=== PATIENT | female | born 1935 | race Caucasian/White ===

== ENCOUNTER 2019-10-07 01:24 | Outpatient (CLI) | payer OTHER, SELFPAY ==
[2019-10-07 18:35] LABS: SARS-CoV-2 RNA PCR Negative
== END 2019-10-07 01:25 | disposition home or self-care (01) ==
LOC: ANHCOVIDDT 01:25
PROVIDERS: PCP Family Medicine; Visit Provider Internal Medicine Gastroenterology
DX: Z01.812 Encounter for preprocedural laboratory examination (principal); Z11.59 Encounter for screening for other viral diseases
CPT/HCPCS: 87635; C9803; U0003

== ENCOUNTER 2019-10-09 01:38 | Day surgery (SDC) | payer OTHER, SELFPAY ==
[2019-10-01 14:38] VITALS: BMI 32.3
--- NOTE | ~2019-10-09 | XR_ITS ---
EXAMINATION: XR_ENEMABAC_CR DATE: 10/09/2019 09:45 INDICATION: Limited colonoscopy. Positive cologuard test. TECHNIQUE: A coach wirer radiograph was obtained. A catheter was inserted into the patient's rectum. Contra st was infused by gravity. Gas was infused by hand pump. Fluoroscopic spot images and conventional ra diographs were obtained. Fluoroscopy exposure time was 2.1 minutes. A total of 13 fluoroscopic images and 13 overhead radiographs were obtained. COMPARISON: None. FINDINGS: Moderate diverticulosis, the majority along the sigmoid colon with a few additional diverticula along the descending colon, couple along the proximal transverse and one at the proximal ascending colon. No strictures, intraluminal polyps/masses or mucosal irregularities identified. Assessment of the sig moid colon is somewhat limited by significant tortuosity of the colon at this location. There is some reflux of contrast into the distal ileum which also appears unremarkable. IMPRESSION: 1. Moderate diverticulosis. Reviewed, dictated and finalized at location A. IMPRESSION: 1. Moderate diverticulosis.
[2019-10-09 06:23] VITALS: BMI 31.6
[2019-10-09] MEDS: LACTATED RINGERS 1,000 ML 150 ML IV CONT (07:09)
--- NOTE | 2019-10-09 07:17 | WPDANESEPPF ---
Anes - Initial Pre Proc Eval Procedure: Operation Date: 10/09/19 07:30 Proposed Procedures p Colonoscopy - Cooper Campbell MD Date/Time: 10/09/19 07:17 Surgeon: Cooper Campbell MD Pre Op Diagnosis: Abnormal Stool, Hx of Colon Polyps Patient Data Age: 84 Gender: F Height: 5 ft 5 in Weight: 86.3 kg Allergies Allergy/AdvReac Type Severity Reaction Status Date / Time levofloxacin Allergy Mild Nausea and Verified 10/09/19 06:20 Vomiting metronidazole Allergy Mild Nausea and Verified 10/09/19 06:20 Vomiting adhesive tape Allergy Unknown BLISTERS Verified 10/09/19 06:20 codeine Allergy Unknown Vomiting Verified 10/09/19 06:20 Iodinated Contrast Media Allergy Unknown Unknown Verified 10/09/19 06:20 Contrast Media Allergy Unknown unknown Uncoded 10/09/19 06:20 Home Medications Medication Instructions Recorded Confirmed Type apixaban 5 mg tablet 5 mg PO BID 01/02/19 10/01/19 History hydrochlorothiazide 12.5 mg tablet 12.5 mg PO DAILY #90 tablet 08/08/19 10/01/19 Rx metoprolol tartrate 50 mg tablet 50 mg PO DAILY 08/08/19 10/01/19 History losartan 50 mg tablet 50 mg PO DAILY #90 tablet 10/07/19 Rx Patient hx anesthesia problems: none Family hx anesthesia problems: none PMFSH Past Medical History Medical History Allergic rhinitis, unspecified Atherosclerosis of aorta Benign paroxysmal vertigo, bilateral Bronchitis Chronic sinusitis of both maxillary sinuses Closed displaced fracture of head of right radius with routine healing Closed nondisplaced fracture of lateral malleolus of right fibula Current use of [facility] anticoagulation Diverticulosis large intestine w/o perforation or abscess w/bleeding Essential (primary) hypertension PAF (paroxysmal atrial fibrillation) Pneumonia and influenza Postmenopausal Spinal stenosis of lumbar region with neurogenic claudication Family History Family History Mother Patient's mother is Family history of malignant neoplasm Sibling Asthma Other Family history of arthritis Social History Social History Smoking status: Former smoker Second hand tobacco smoke exposure: No Smoking end date: 02/26/83 Alcohol intake: never Substance use: never Substance use type: does not use Gender identity (if verbalized by the patient): Female Anes - Eval Final PreProcedure Day of Procedure 10/09/19 07:17 Patient weight: obese Heart: irregular rhythm Lungs: clear to auscultation Airway: Mallampati scale class II Neurological: alert and oriented Last oral intake: >/= 8 hours ASA classification: III Emergent: no Anesthetic plan: proceed Anesthesia type and monitoring: general GIVS and standard monitoring Informed Consent: The patient's anesthetic plan and its attendant risks and benefits were discussed with the patient/family/POA. Questions were solicited and answers provided to the satisfaction of the patient/family/POA.
--- NOTE | 2019-10-09 08:16 | WPDGICN ---
Assessment and Plan Assessment and plan (1) Positive colorectal cancer screening using Cologuard test: Code(s): R19.5 - Other fecal abnormalities Status: Acute Assessment and Plan: Because of positive: GERD test as well as family history of colon cancer in her own personal history of colon polyps colonoscopy will be attempted. Anticoagulation will be held for this procedure. These reports follow separately. (2) History of colon polyps: Code(s): Z86.010 - Personal history of colonic polyps Status: Acute (3) Family history of colon cancer in mother: Code(s): Z80.0 - Family history of malignant neoplasm of digestive organs Status: Acute (4) PAF (paroxysmal atrial fibrillation): Code(s): I48.0 - Paroxysmal atrial fibrillation Status: Acute (5) Current use of correction anticoagulation: Code(s): Z79.01 - termite control representative (current) use of anticoagulants Status: Acute (6) Diverticulosis large intestine w/o perforation or abscess w/bleeding: Code(s): K57.31 - Diverticulosis of large intestine without perforation or abscess with bleeding Status: Acute GI Consult Note Consult date/time: 10/09/19 08:16 HPI: Pearl Goodman is a 84 year old female Seen in evaluation at the request of Dr. francesca lo. Patient recently had colon guard test that was positive. For this reason she is referred for colonoscopy. Her past medical history is significant for colon polyps. Family history is significant her mother had colon cancer. Patient has a history of atrial fibrillation for which she is on Eliquis atrial fibrillation will be held for colonoscopy. Patient states her current weight appetite bowel is normal. She denies abdominal pain she denies bleeding. 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 Diverticulosis large intestine w/o perforation or abscess w/bleeding Essential (primary) hypertension PAF (paroxysmal atrial fibrillation) Pneumonia and influenza Postmenopausal Spinal stenosis of lumbar region with neurogenic claudication Family History Family History Mother Patient's mother is Family history of malignant neoplasm Sibling Asthma Other Family history of arthritis Social History Social History Smoking status: Former smoker Second hand tobacco smoke exposure: No Smoking end date: 02/26/83 Alcohol intake: never Substance use: never Substance use type: does not use Gender identity (if verbalized by the patient): Female Meds Home Medications and Allergies Home Medications Medication Instructions Recorded Confirmed Type apixaban 5 mg tablet 5 mg PO BID 01/02/19 10/01/19 History hydrochlorothiazide 12.5 mg tablet 12.5 mg PO DAILY #90 tablet 08/08/19 10/01/19 Rx metoprolol tartrate 50 mg tablet 50 mg PO DAILY 08/08/19 10/01/19 History losartan 50 mg tablet 50 mg PO DAILY #90 tablet 10/07/19 Rx Allergies Allergy/AdvReac Type Severity Reaction Status Date / Time levofloxacin Allergy Mild Nausea and Verified 10/09/19 06:20 Vomiting metronidazole Allergy Mild Nausea and Verified 10/09/19 06:20 Vomiting adhesive tape Allergy Unknown BLISTERS Verified 10/09/19 06:20 codeine Allergy Unknown Vomiting Verified 10/09/19 06:20 Iodinated Contrast Media Allergy Unknown Unknown Verified 10/09/19 06:20 Contrast Media Allergy Unknown un
[2019-10-09 08:19] VITALS: BP 109/63; PULSE 80; RESP 22; O2SAT 99
[2019-10-09 08:29] VITALS: BP 110/59; PULSE 77; RESP 21; O2SAT 99
[2019-10-09 08:34] VITALS: BP 114/64; PULSE 78; RESP 21; O2SAT 99
--- NOTE | 2019-10-09 09:09 | SUR.PHASEII ---
INCOMPLETE COLONOSCOPY. DR. MORE WOULD LIKE PATIENT TO HAVE ACBE TODAY. CALLED TO SCHEDULE PROCEDURE WITH XRAY, TOLD TO CALL THEN BRING PATIENT DOWN WHEN COMPLETE IN GI. 856 -CALLED XRAY AND TOLD TO GO TO XRAY ROOM 2. 0859 -HANDED OFF PATIENT TO XRAY AND GAVE FAY'S PHONE NUMBER. [phone] -UPDATED PATIENTS , FAY, TO LET HIM KNOW THAT PATIENT IS NOW IN XRAY. FAY LET ME KNOW THAT HE IS CURRENTLY WAITING FOR HER ON THE FRONT SIDE OF THE HOSPITAL, LOOKING AT THE [facility] DOORS. GAVE FAY 'S PHONE NUMBER JUST IN CASE HE NEEDS SOMETHING.
== END 2019-10-09 08:43 | disposition home or self-care (01) ==
PROVIDERS: PCP Family Medicine; Visit Provider Internal Medicine Gastroenterology
PROC: 0DJD8ZZ Inspection of Lower Intestinal Tract, Via Natural or Artificial Opening Endoscopic (ICD-10-PCS; CPT 45378; principal; 2019-10-09 07:30)
DX: R19.5 Other fecal abnormalities (principal); K57.30 Diverticulosis of large intestine without perforation or abscess without bleeding; Z80.0 Family history of malignant neoplasm of digestive organs; Z86.010 Personal history of colon polyps; Z87.19 Personal history of other diseases of the digestive system; I48.0 Paroxysmal atrial fibrillation; Z79.01 Long term (current) use of anticoagulants; Z87.891 Personal history of nicotine dependence
CPT/HCPCS: 45378; 74280; 87635; C9803; J2704; J7120; U0003

== ENCOUNTER 2020-03-18 05:39 | Emergency (ER) | payer OTHER, SELFPAY ==
[2020-03-18] VITALS (7 sets, daily range): BP systolic 107–172; BP diastolic 66–95; PULSE 83–95; RESP 20–28; TEMP 36.5; O2SAT 96–99
--- NOTE | ~2020-03-18 | XR_ITS ---
EXAMINATION: XR chest 1V portable EXAM DATE: 03/18/2020 06:21 INDICATION: Shortness of breath. TECHNIQUE: Portable AP frontal chest x-ray was obtained. Comparison is made to prior examination from 05/29/2018. FINDINGS: The lungs are clear. There are no pleural effusions. Cardiac silhouette is prominent but magnified on this AP technique. There is no pneumothorax suspected. The bones and soft tissues are unremarkable. IMPRESSION: No acute cardiopulmonary findings. Reviewed, dictated and finalized at location A. POUND ATTENDANT
--- NOTE | 2020-03-18 05:49 | ECG_ITS ---
Measurements Intervals [place] Rate: 95 P: TX: 0 QRS: 25 QRSD: 76 T: 10 QT: 336 QTc: 423 Interpretive Statements ATRIAL FIBRILLATION VENTRICULAR PREMATURE COMPLEX CANNOT RULE OUT SEPTAL INFARCT, AGE INDETERMINATE BORDERLINE ST ABNORMALITY- ANTERIOR LEADS BASELINE ARTIFACT- I, II, III, AVR, AVL, AVF, V4-V6 ABNORMAL ECG Electronically Signed On 03-18-2020 7:17:29 BRAND ENGINEER by Ricardo Barreto D.O.
--- NOTE | 2020-03-18 05:51 | ED.ARRPALP ---
HPI - Arrhythmia/Palpitations General Chief Complaint: Arrhythmia/Palpitations Stated Complaint: sob and afib Time Seen by Provider: 03/18/20 05:40 Source: patient and EMS Mode of arrival: EMS Limitations: no limitations History of Present Illness HPI narrative: And an 84-year-old woman comes in tonight via EMS for complaints of palpitations, and anxiety. Patient notes that she has not been able to sleep all night. She states that her heart kicked into A. fib around noon yesterday. She states that this does happen. She notes that she takes metoprolol for this and has not missed any doses. Patient admits to some shortness of breath however denies any chest pain. Patient does note some anxiety. She denies any medication changes or anything inciting this. Related Data Home Medications Medication Instructions Recorded Confirmed apixaban 5 mg tablet 5 mg PO BID 01/02/19 10/01/19 metoprolol tartrate 50 mg tablet 50 mg PO DAILY 08/08/19 10/01/19 ropinirole mg 03/18/20 03/18/20 Allergies Allergy/AdvReac Type Severity Reaction Status Date / Time levofloxacin Allergy Mild Nausea and Verified 03/18/20 05:53 Vomiting metronidazole Allergy Mild Nausea and Verified 03/18/20 05:53 Vomiting adhesive tape Allergy Unknown BLISTERS Verified 03/18/20 05:53 codeine Allergy Unknown Vomiting Verified 03/18/20 05:53 Iodinated Contrast Media Allergy Unknown Unknown Verified 03/18/20 05:53 Contrast Media Allergy Unknown unknown Uncoded 03/18/20 05:53 Review of Systems Review of Systems: Narrative: CONSTITUTIONAL: Denies fever, chills, or sweats. EYES: Denies visual changes, redness, or discharge. ENT: Denies rhinorrhea, congestion, sore throat, or otalgia. CARDIOVASCULAR: Denies chest pain, or edema. Endorses palpitations RESPIRATORY: Denies cough or dyspnea. GASTROINTESTINAL: Denies abdominal pain, nausea, vomiting, or diarrhea. GENITOURINARY: Denies dysuria or hematuria. SKIN: Denies rash or itching. MUSCULOSKELETAL: Denies back pain, joint pain, or myalgia. NEUROLOGIC: Denies headache, numbness, dizziness, or weakness. PSYCHIATRIC: Denies anxiety or depression. [facility] Past Medical History Medical History (Updated 03/18/20 @ 07:12 by Tony Eden DO) Allergic rhinitis, unspecified Atherosclerosis of aorta Benign paroxysmal vertigo, bilateral Bronchitis Chronic sinusitis of both maxillary sinuses Closed displaced fracture of head of right radius with routine healing Closed nondisplaced fracture of lateral malleolus of right fibula Current use of [facility] anticoagulation Diverticulosis large intestine w/o perforation or abscess w/bleeding Essential (primary) hypertension PAF (paroxysmal atrial fibrillation) Pneumonia and influenza Postmenopausal Spinal stenosis of lumbar region with neurogenic claudication Family History Family History Mother Patient's mother is Family history of malignant neoplasm Sibling Asthma Other Family history of arthritis Social History Social History Smoking status: Former smoker Second hand tobacco smoke exposure: No Smoking end date: 02/26/83 Alcohol intake: never Substance use: never Substance use type: does not use Gender identity (if verbalized by the patient): Female Exam Narrative: Exam Narrative: GENERAL: Well-appearing, well-nourished, and in no acute distress. HEAD: Normocephalic, atraumatic. EYES: PERRLA and EOMI. ENT: Nares clear, no rhinorrhea or epistaxis. Mucous membranes moist. Oropharynx without tonsillar hypertrophy exudate or other lesions. Bilateral TMs pearly lang nonbulging NECK: Supple. No adenopathy or masses. No carotid bruits or JVD CHEST: Clear to auscultation. No respiratory distress. No wheezes rales or rhonchi HEART: Irregularly irregular and tachycardic. No murmur heard. Normal peripheral pulses. ABDOMEN: Soft, nontender, no
[2020-03-18] MEDS: LORazepam INJ (*CRX) 2 MG/ML VIAL 0.5 MG IV PUSH (06:05)
[2020-03-18] MEDS: METOPROLOL TARTRATE INJ 5 MG/5 ML VIAL IV PUSH (06:15)
[2020-03-18] MEDS: LACTATED RINGERS 1,000 ML 999 ML IV CONT (06:15)
[2020-03-18 06:19] LABS: Basophils Absolute Auto 0.1 K/mm3 (0.0-0.1); Basophils Percent Auto 0.6 % (0.2-1.2); Eosinophils Absolute Auto 0.1 K/mm3 (0-0.3); Eosinophils Percent Auto 1.7 % (0-4.4); Hematocrit 40.6 % (37.0-47.0); Hemoglobin 13.9 g/dL (12.0-15.0); Immature Granulocyte Absolute 0.02 K/mm3 (0.00-0.031); Immature Granulocyte Percent A 0.3 % (0-0.5); Lymphocytes Absolute Auto 1.59 K/mm3 (0.9-3.2); Lymphocytes Percent Auto 20.3 % (18.3-44.2); Mean Corpuscular HGB Conc 34.2 g/dl (32-36); Mean Corpuscular Hemoglobin 29.3 pg (26-34); Mean Corpuscular Volume 85.7 fl (80-100); Mean Platelet Volume 9.9 fl (7.4-10.4); Monocytes Absolute Auto 0.5 K/mm3 (0.1-0.6); Monocytes Percent Auto 5.7 % (2.6-8.5); Neutrophils Absolute Auto 5.6 K/mm3 (1.3-6.7); Neutrophils Percent Auto 71.4 % (45.5-73.1); Platelet Count Result 288 k/mm3 (150-375); Red Blood Count 4.74 M/mm3 (4.2-5.4); Red Cell Distribution Width 12.4 % (11.5-14.5); White Blood Count 7.8 K/mm3 (4.5-10.0)
[2020-03-18 06:29] LABS: Alanine Aminotransferase 15 U/L (4-35); Albumin Level 4.4 g/dL (3.5-5.1); Alkaline Phosphatase 73 U/L (38-126); Anion Gap 6 mmol/L (8-16); Aspartate Amino Transferase 24 U/L (14-36); Bilirubin,Total 1.1 mg/dL (0.2-1.3); Blood Urea Nitrogen 9 mg/dL (7-17); Calcium 9.1 mg/dL (8.4-10.2); Carbon Dioxide 30 mmol/L (22-30); Chloride 92 mmol/L (98-107); Estimated CRCL calculation 82 ml/min; Estimated Glomerular Filt Rate > 60; Glucose 131 mg/dL (65-105); Magnesium 1.8 mg/dL (1.6-2.3); Potassium 3.6 mmol/L (3.4-5.0); Sodium 128 mmol/L (137-145)
[2020-03-18 06:38] LABS: NT Pro B Type Natriuretic Pept 484 PG/ML (5-100)
[2020-03-18 07:24] LABS: Troponin I < 0.012 ng/mL (0.000-0.034)
== END 2020-03-18 08:15 | disposition home or self-care (01) ==
PROVIDERS: Emergency Provider Emergency Medicine; Family Provider Family Medicine; PCP Family Medicine
DX: I48.0 Paroxysmal atrial fibrillation (principal); I10 Essential (primary) hypertension; R00.2 Palpitations; F41.9 Anxiety disorder, unspecified; Z79.01 Long term (current) use of anticoagulants; Z87.891 Personal history of nicotine dependence; I70.0 Atherosclerosis of aorta; J32.0 Chronic maxillary sinusitis; K57.30 Diverticulosis of large intestine without perforation or abscess without bleeding; I49.3 Ventricular premature depolarization; R94.31 Abnormal electrocardiogram [ECG] [EKG]
CPT/HCPCS: 36415; 71045; 80053; 83735; 83880; 84484; 85025; 93005; 96361; 96374; 96375; 99284; J2060; J7120

== ENCOUNTER 2020-12-09 17:26 | Inpatient (IN) | payer OTHER, SELFPAY ==
--- NOTE | ~2020-12-09 | XR_ITS ---
XR chest 2V DATE: 12/09/2020 18:07 INDICATION: Left chest pain radiating to left arm and back. Shortness of breath. History of chronic a trial fibrillation, asthma, hypertension. TECHNIQUE: PA and lateral views COMPARISON: 03/18/2020 portable AP chest FINDINGS: No pulmonary infiltrate or consolidation, pleural effusion or pulmonary vascular congestion or pneumothorax. Heart size is within upper limits of normal. No hilar or mediastinal enlargement. Diffuse osteopenia. IMPRESSION: No active pulmonary disease Osteopenia Reviewed, dictated and finalized at location B.
[2020-12-09 17:35] VITALS: BP 141/69; PULSE 91; RESP 14; TEMP 36.6; O2SAT 99
--- NOTE | 2020-12-09 17:38 | ECG_ITS ---
Measurements Intervals [place] Rate: 85 P: CT: 0 QRS: 16 QRSD: 81 T: 44 QT: 354 QTc: 422 Interpretive Statements ATRIAL FIBRILLATION EARLY PRECORDIAL R/S TRANSITION BASELINE ARTIFACT- I, II, III, AVL, AVF ABNORMAL ECG Electronically Signed On 12-09-2020 18:51:30 CDT by Ricardo Barreto D.O.
[2020-12-09 18:04] LABS: Basophils Percent Auto 0.6 % (0.2-1.2); Eosinophils Absolute Auto 0.1 K/mm3 (0-0.3); Eosinophils Percent Auto 2.1 % (0-4.4); Hematocrit 43.4 % (37.0-47.0); Hemoglobin 14.1 g/dL (12.0-15.0); Immature Granulocyte Absolute 0.02 K/mm3 (0.00-0.031); Immature Granulocyte Percent A 0.3 % (0-0.5); Lymphocytes Absolute Auto 1.84 K/mm3 (0.9-3.2); Mean Corpuscular HGB Conc 32.5 g/dl (32-36); Mean Corpuscular Hemoglobin 29.4 pg (26-34); Mean Corpuscular Volume 90.4 fl (80-100); Mean Platelet Volume 10.4 fl (7.4-10.4); Monocytes Absolute Auto 0.6 K/mm3 (0.1-0.6); Monocytes Percent Auto 8.8 % (2.6-8.5); Neutrophils Absolute Auto 3.8 K/mm3 (1.3-6.7); Neutrophils Percent Auto 59.2 % (45.5-73.1); Platelet Count Result 248 k/mm3 (150-375); Red Cell Distribution Width 13.2 % (11.5-14.5); White Blood Count 6.3 K/mm3 (4.5-10.0)
[2020-12-09 18:13] LABS: Prothrombin Time 13.5 Seconds (11.1-14.7)
[2020-12-09 18:14] LABS: Partial Thromboplastin Time 34.1 SECONDS (22.3-36.8)
[2020-12-09 18:16] LABS: Anion Gap 6 mmol/L (8-16); Blood Urea Nitrogen 17 mg/dL (7-17); Calcium 9.3 mg/dL (8.4-10.2); Carbon Dioxide 32 mmol/L (22-30); Chloride 98 mmol/L (98-107); Estimated CRCL calculation 66 ml/min; Estimated Glomerular Filt Rate > 60; Glucose 104 mg/dL (65-110); Potassium 4.1 mmol/L (3.4-5.0); Sodium 136 mmol/L (137-145)
[2020-12-09 18:28] LABS: Troponin I < 0.012 ng/mL (0.000-0.034)
--- NOTE | 2020-12-09 21:39 | PC.NURSE ---
Called ab and spoke to Clayton to add on BNP
[2020-12-09 21:42] VITALS: BP 165/88; PULSE 104; RESP 20; O2SAT 97
[2020-12-09 22:00] LABS: NT Pro B Type Natriuretic Pept 672 pg/mL (5-100)
--- NOTE | 2020-12-09 22:05 | ED.GENADULT ---
HPI - General Adult General Chief complaint: Chest Pain Stated complaint: chest pain Time Seen by Provider: 12/09/20 21:12 History of Present Illness HPI narrative: Patient 85-year-old female presents to emergency department with chief complaint of shortness of breath and chest tightness. The patient states that for the last several weeks she has been having progressively more short of breath worse with exertion patient states that she has history of atrial fibrillation and has been pretty well constant and A. fib patient reports she seen her etcher printed circuit boards Dr. Nixon who was planning on doing a echo and then planning on whether to do cardioversion versus medical therapy. Patient states that she has been progressively more short of breath has had increasing edema in her lower extremities and reports that she can walk very little distance without getting short of breath. The patient states she had some tightness in her left neck and in her left chest. Related Data Home Medications Medication Instructions Recorded Confirmed apixaban 5 mg tablet 5 mg PO BID 01/02/19 10/23/20 ropinirole mg 03/18/20 10/23/20 Allergies Allergy/AdvReac Type Severity Reaction Status Date / Time levofloxacin Allergy Mild Nausea and Verified 10/12/20 13:43 Vomiting metronidazole Allergy Mild Nausea and Verified 10/12/20 13:43 Vomiting adhesive tape Allergy Unknown BLISTERS Verified 10/12/20 13:43 codeine Allergy Unknown Vomiting Verified 10/12/20 13:43 Iodinated Contrast Media Allergy Unknown Unknown Verified 10/12/20 13:43 Contrast Media Allergy Unknown unknown Uncoded 10/12/20 13:43 Review of Systems Review of Systems: A 10 system review of systems was completed on the patient and is negative except for what is stated in the HPI. Nursing and ancillary documentation was reviewed. [facility] Past Medical History Medical History Allergic rhinitis, unspecified Atherosclerosis of aorta Benign paroxysmal vertigo, bilateral Bronchitis Chronic atrial fibrillation Chronic sinusitis of both maxillary sinuses Closed displaced fracture of head of right radius with routine healing Closed nondisplaced fracture of lateral malleolus of right fibula Current use of senior care anticoagulation Diverticulosis large intestine w/o perforation or abscess w/bleeding Essential (primary) hypertension PAF (paroxysmal atrial fibrillation) Pneumonia and influenza Postmenopausal Spinal stenosis of lumbar region with neurogenic claudication Family History Family History Mother Patient's mother is Family history of malignant neoplasm Sibling Asthma Other Family history of arthritis Social History Social History Social History: Smoking status: Former smoker Tobacco type: cigarettes Second hand tobacco smoke exposure: No Smoking end date: 02/26/83 Alcohol intake: never Substance use: never Substance use type: does not use Gender identity (if verbalized by the patient): Female Sexual Orientation (if Verbalized by the Patient): Straight or Heterosexual Exam Narrative: GENERAL: Well-appearing, well-nourished, and in no acute distress. HEAD: Normocephalic, atraumatic. EYES: PERRLA and EOMI. ENT: Nares clear, no rhinorrhea or epistaxis. Mucous membranes moist. NECK: Supple. CHEST: Clear to auscultation. No respiratory distress. HEART: Regular rate and rhythm. No murmur heard. Normal peripheral pulses. ABDOMEN: Soft, nontender, nondistended, normal active bowel sounds. EXTREMITIES: Normal range of motion. +1 edema. SKIN: Warm, dry, no rash. NEURO: No focal deficits. Alert and oriented x3. PSYCH: Normal mood and affect. Course Course Emergency Course: EKG shows atrial fibrillation no ST elevation or ST depression Vital Signs Vit
[2020-12-09 22:15] VITALS: BP 128/81; PULSE 81; RESP 22; O2SAT 95
[2020-12-09 22:42] LABS: Troponin I < 0.012 ng/mL (0.000-0.034)
--- NOTE | 2020-12-09 22:44 | PM.IMHP ---
H&P: HPI History of Present Illness Date/Time: 12/09/20 22:44 Chief Complaint: Chest tightness Narrative: This is an 85-year-old female with past medical history significant for atrial fibrillation, benign paroxysmal vertigo, bronchitis, chronic sinusitis, diverticulosis, essential hypertension: Spinal stenosis, neurogenic claudication. 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 Today she presented to the emergency room due to worsening shortness of breath, chest tightness, dizziness, lightheadedness, leg swelling, no fevers no rigors no chills no cough no sputum production ,no nausea, no vomiting ,no abdominal pain no PND ,no orthopnea, no syncope or near syncope. Preliminary workup was essentially no review EKG showed atrial fibrillation with slow ventricular response. Decision has been made to place the patient in observation for further evaluation management and treatment. Review of Systems Review of Systems: Shortness of breath ,lightheadedness, chest tightness, irregular heartbeat Constitutional: Constitutional: Denies chills, Denies fatigue and Denies fever(s) Eyes: Eyes: Denies change in vision ENT: Denies dysphagia, Reports vertigo, Reports dizziness, Denies nasal congestion, Denies nasal discharge, Denies nasal obstruction and Reports disequilibrium Cardiovascular: Cardiovascular: Reports chest pain at rest, Reports pedal edema, Reports irregular heart rhythm, Denies radiating jaw, neck or arm pain, Denies palpitations, Reports dyspnea, Reports dyspnea on exertion and Denies orthopnea Respiratory: Respiratory: Denies cough Gastrointestinal: Gastrointestinal: Denies abdominal pain, Denies dyspepsia, Denies heartburn, Denies nausea and Denies vomiting Genitourinary: Genitourinary: Reports no additional female genitourinary complaints Musculoskeletal: Musculoskeletal: Reports no additional musculoskeletal complaints Integumentary/Breasts: Skin/Breast: Reports system reviewed and no additional complaints, except as docu Neurologic: Reports system reviewed and no additional complaints, except as documented Psychiatric: Psychiatric: Reports no additional psychiatric complaints Endocrine: Endocrine: Reports no additional endocrine complaints Hematologic/Lymphatic: Hematologic/Lymphatic: Reports no additional hematologic/lymphatic complaints Allergic/Immunologic: Allergic/Immunologic: Reports no additional allergic/immunologic complaints PMFSH Past Medical History Medical History (Updated 12/10/20 @ 05:21 by Chani Mcfarlane MD) Allergic rhinitis, unspecified Atherosclerosis of aorta Benign paroxysmal vertigo, bilateral Bronchitis Chronic atrial fibrillation Chronic sinusitis of both maxillary sinuses Closed displaced fracture of head of right radius with routine healing Closed nondisplaced fracture of lateral malleolus of right fibula 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 Diverticulosis large intestine w/o perforation or abscess w/bleeding Essential (primary) hypertension PAF (paroxysmal atrial fibrillation) Pneumonia and influenza Postmenopausal Spinal stenosis of lumbar region with neurogenic claudication Family History Family History Mother Patient's mother is Family history of malignant neoplasm Sibling Asthma Other Family history of arthritis Social History Social History Social History: Smoking status: Former smoker Second hand tobacco smoke exposure: No Alcohol intake: never Substance use: never Substance use type: does not use Gender identity (if verbalized by the patient): Female Sexual Orientation (if Verbalized by the Patient): Straight or Heterosexual Spiritual care concerns: No Meds Home Medications and Allergies Home Medications Medication Ins
[2020-12-09 23:10] VITALS: O2SAT 95
[2020-12-09 23:35] VITALS: BP 117/73; PULSE 78; RESP 17; O2SAT 94
[2020-12-09] MEDS: NITROGLYCERIN SL 0.4 MG TABLET SUBLINGUAL (23:36)
[2020-12-09] MEDS: FUROSEMIDE INJ 40 MG/4 ML VIAL IV PUSH (23:36)
[2020-12-09 23:52] LABS: Troponin I < 0.012 ng/mL (0.000-0.034)
[2020-12-10] VITALS (27 sets, daily range): BP systolic 107–150; BP diastolic 61–88; PULSE 72–102; RESP 16–22; TEMP 35.9–36.6; O2SAT 92–100; BMI 31.8
--- NOTE | 2020-12-10 00:12 | ADMGEN ---
This patient, Pearl Goodman, was admitted to IMU Room 210-01 at 0012. Patient/family oriented to hospital policies and general routines including ID bracelet, bed and alarms, visiting hours, pain management, procedures, bathroom and other care routines, personal items, smoking policy, room service/diet, and visiting hours. Information on how to activate the Rapid Response Team has been discussed. Patient/Family are encouraged to report perceived risks to care and to ask questions if they do not understand what they are told or what they should do.
--- NOTE | 2020-12-10 06:00 | ECHO_ITS ---
Patient Info Name: Pearl Goodman Age: 85 years : 1935 Gender: Female Ht: 65 in Wt: 191 lbs BSA: 2.02 m2 HR: 83 bpm BP: 113 / 73 mmHg Heart Rhythm: Atrial Fibrillation Exam Date: 12/10/2020 12:13 PM Exam Location: [facility] Patient Status: Outpatient Admit Date: 12/09/2020 Staff Ordering Physician: Edmundo Govea MD Sales Team Manager: Km Damon, RDCS, RT Attending Provider: Chani Mcfarlane MD Referring Physician: Jeferson GUAJARDO; Exam Type: CA echo doppler color flow Study Info Indications R06.00 - Dyspnea, unspecified Complete two-dimensional, color flow and Doppler transthoracic echocardiogram is performed. Strain analysis performed. Summary 1. Complete two-dimensional, color flow and Doppler transthoracic echocardiogram is performed. 2. Left ventricular chamber dimension is normal. 3. Left ventricular systolic function is normal, estimated at 60-65%. 4. There is mildly increased left ventricular wall thickness. 5. There is mild aortic valve stenosis with a peak velocity of 179 cm/s, mean gradient of 4 mmHg, and aortic valve area of 1.9 cm2. 6. There is mild mitral valve regurgitation. 7. There is mild tricuspid valve regurgitation. 8. Mild pulmonary hypertension, estimated pulmonary arterial systolic pressure is 39 mmHg. Left Ventricle Left ventricular chamber dimension is normal. Left ventricular systolic function is normal, estimated at 60-65%. There is mildly increased left ventricular wall thickness. The left ventricular diastolic function is indeterminate. Global longitudinal strain is mildly elevated at -15 %. Right Ventricle Right ventricular chamber dimension is normal. Right ventricular systolic function is normal. Left Atria Left atrial chamber dimension is normal. Right Atria Right atrial chamber dimension is mildly enlarged. Aortic Valve The aortic valve is trileaflet. There is mild aortic valve sclerosis. There is mild aortic valve stenosis with a peak velocity of 179 cm/s, mean gradient of 4 mmHg, and aortic valve area of 1.9 cm2. There is no aortic valve regurgitation. Pulmonic Valve The pulmonic valve is not well visualized. There is trace pulmonic regurgitation. Mitral Valve The mitral valve has thickened leaflets. There is mild mitral valve regurgitation. The mitral valve annulus is mildly calcified. Tricuspid Valve The tricuspid valve leaflets are normal. There is mild tricuspid valve regurgitation. Mild pulmonary hypertension, estimated pulmonary arterial systolic pressure is 39 mmHg. Pericardium/Pleural The pericardium appears normal. There is trivial pericardial effusion. Inferior Vena Cava Normal inferior vena cava with >50% collapse upon inspiration consistent with normal right atrial pressure, 5 mmHg. Aorta The aortic root size at the sinus of Valsalva is normal. There is mild aortic atherosclerosis. Left Ventricular Outflow Tract Name Value Normal LVOT 2D LVOT Diameter 2.0 cm LVOT Doppler LVOT Peak Gradient 3 mmHg LVOT Mean Gradient 2 mmHg
[2020-12-10] MEDS: APIXABAN 5 MG TABLET PO ×2 (11:29→20:39)
[2020-12-10] MEDS: AMIODARONE 150 MG/D5W 100 ML 150 MG/100 ML BAG 600 MG IV CONT (11:30)
[2020-12-10] MEDS: AMIODARONE 360 MG/D5W 200 ML 360 MG/200 ML BAG 33.33 MG IV CONT (11:51)
--- NOTE | 2020-12-10 11:52 | PM.CNCAR ---
Assessment and Plan Assessment and plan (1) Persistent atrial fibrillation: Code(s): I48.19 - Other persistent atrial fibrillation Status: Acute Assessment and Plan: Symptomatic atrial fibrillation despite adequate heart rate control with progressive fatigue and exertional dyspnea. Discussed multiple options with regards to electrical cardioversion as well as antiarrhythmic therapy. We discussed even if cardioversion were successful in restoring sinus rhythm given her history of paroxysmal atrial fibrillation now persistent I would still recommend addition of antiarrhythmic therapy. I feel the most effective options would involve amiodarone or sotalol. After lengthy discussion patient agrees to proceed with amiodarone. We will initiate IV amiodarone and if AFib persists will pursue elective electrical cardioversion this afternoon to restore sinus rhythm. Given her intolerance of AFib I feel she would be best served with antiarrhythmic therapy to maintain sinus rhythm. Discussed the need for sotalol loading and hospitalization through the weekend which the patient was somewhat reluctant but ultimately agreeable if that was felt to be the best option. If cardioversion is required CARY guidance is not deemed necessary as she has been compliant with Eliquis without missing a single dose for many months. 2D echocardiogram has been ordered and is pending at this time. With regards to rate versus rhythm control, clearly rhythm control is of paramount importance as she does not tolerate atrial fibrillation well. Need to ensure LV function is preserved by echocardiogram. -keep NPO for now as cardioversion may be required. -Reduce metoprolol to 25 mg twice daily. -Start IV Amiodarone per protocol 150mg IV bolus, 1mg/kg/min x6 hours then 0.5mg /kg/min thereafter. Prefer to initiate prior to cardioversion to help ensure likelihood of success and durable cardioversion if required. -Risks with cardioversion cleaning stroke, bradycardia, potential side effects and need for monitoring with amiodarone once again reviewed in detail. All questions answered to her satisfaction. Patient verbalized understanding and agreed to proceed with plan of care as outlined. (2) Acute heart failure with preserved ejection fraction (HFpEF): Code(s): I50.31 - Acute diastolic (congestive) heart failure Status: Acute Assessment and Plan: Mild acute heart failure with preserved ejection fraction resolved with IV Lasix 40 mg x 1 secondary to atrial fibrillation. Check 2D echocardiogram to establish preservation of LV function, valve pathology pulmonary pressures. Recommendation to follow. Resume home furosemide 20 mg daily. (3) LUIS (dyspnea on exertion): Code(s): R06.00 - Dyspnea, unspecified Status: Acute Assessment and Plan: Secondary to mild decompensated heart failure at presentation now stable yet with symptoms persistent related to ongoing atrial fibrillation as above. (4) Essential (primary) hypertension: Code(s): I10 - Essential (primary) hypertension Status: Acute Assessment and Plan: Hypertensive at presentation but very well controlled subsequently. (5) Chronic anticoagulation: Code(s): Z79.01 - [facility] (current) use of anticoagulants Status: Acute Assessment and Plan: Continue Eliquis 5 mg twice daily. As above, no interruption in anticoagulation in many months. No evidence of bleeding, falls or head trauma. History of Present Illness History of Present Illness Consult date/time: Date of service: 12/10/20 11:52 Cardiology consultation at the request of Dr. Mcfarlane for opinion regarding atrial fibrillation and shortness of breath Requesting physician: Chani Mcfarlane MD Consult reason: atrial fibrillation and shortness of breath Reason For Visit: Chest pain; Dyspnea; A. fib Narrative: Patient is a very pleasant 84-year-old female well known to me whom I fo
--- NOTE | 2020-12-10 13:50 | WPDMODSED ---
Moderate Sedation Note-Pt Data Patient Data Diagnosis: Atrial fibrillation Present Complaint: Fatigue, shortness of breath Procedure to be performed/Plan: Elective electrical cardioversion Allergies Allergy/AdvReac Type Severity Reaction Status Date / Time levofloxacin Allergy Mild Nausea and Verified 10/12/20 13:43 Vomiting metronidazole Allergy Mild Nausea and Verified 10/12/20 13:43 Vomiting adhesive tape Allergy Unknown BLISTERS Verified 10/12/20 13:43 codeine Allergy Unknown Vomiting Verified 10/12/20 13:43 Iodinated Contrast Media Allergy Unknown Unknown Verified 10/12/20 13:43 Contrast Media Allergy Unknown unknown Uncoded 10/12/20 13:43 Home Medications Medication Instructions Recorded Confirmed Type apixaban 5 mg tablet 5 mg PO BID 01/02/19 12/10/20 History lorazepam 0.5 mg tablet 0.5 mg PO BID PRN #60 tablet 03/19/20 12/10/20 Rx furosemide 20 mg tablet 20 mg PO QAM #30 tablet 10/12/20 12/10/20 Rx metoprolol tartrate 50 mg PO BID 12/10/20 12/10/20 History Current Medications: Active Medications Apixaban (Apixaban 5 Mg Tablet) 5 mg PO Q12HR NARENDRA Last Admin: 12/10/20 11:29 Dose: 5 mg Documented by: Amiodarone HCl/Dextrose (Nexterone 360 Mg/D5w 200 Ml) 360 mg in 200 mls @ 33.333 mls/hr IV CONT .Q6H ONE Stop: 12/10/20 17:06 Last Admin: 12/10/20 11:51 Dose: 1 mg/min, 33.33 mls/hr Documented by: Metoprolol Tartrate (Metoprolol Tartrate 25 Mg Tablet) 25 mg PO Q12HR NARENDRA Nitroglycerin (Nitroglycerin Sl 0.4 Mg Tablet) 0.4 mg SUBLINGUAL Q5MIN PRN PRN Reason: Chest Pain Last Admin: 12/09/20 23:36 Dose: 0.4 mg Documented by: Sedation/Anesthesia: No previous sedation/anesthesia problems (including family history). 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 use of meterman anticoagulation Diverticulosis large intestine w/o perforation or abscess w/bleeding Essential (primary) hypertension PAF (paroxysmal atrial fibrillation) Pneumonia and influenza Postmenopausal Spinal stenosis of lumbar region with neurogenic claudication Family History Family History Mother Patient's mother is Family history of malignant neoplasm Sibling Asthma Other Family history of arthritis Social History Social History Social History: Smoking status: Former smoker Second hand tobacco smoke exposure: No Alcohol intake: never Substance use: never Substance use type: does not use Gender identity (if verbalized by the patient): Female Sexual Orientation (if Verbalized by the Patient): Straight or Heterosexual Spiritual care concerns: No Mod Sed Physical Exam Physical Exam Pre Procedural Exam: Normal: Appearance, Eyes, Ears, Nose, Neck (Supple, normal range of motion), Throat (Posterior hypopharynx clear, nonerythematous), Airway (No obstruction, normal anatomy), Lungs (Clear to auscultation bilaterally), Heart Size, Neuro Exam, Abdomen, Liver, Extremities and Skin and Variation: Heart Rate (Tachycardic) and Heart Rhythm (Irregularly irregular) Hours since solid foods: 12 Hours since liquid intake: 12 Mallampati Classification: class III Internal Medicine - PN: Obj Da Vital Signs Vital Signs: Vital Signs - 24 hr 12/09/20 17:35 12/09/20 21:42 12/09/20 22:15 Temperature 36.6 C Pulse Rate 91 104 H 81 Respiratory Rate 14 20 22 H Blood Pressure 141/69 H 165/88 H 128/81 Pulse Oximetry 99 97 95 12/09/20 23:10 12/09/20 23:35 12/10/20 00:10 Temperature 36.6 C Pulse Rate 78 78
--- NOTE | 2020-12-10 14:12 | WPDCARDVER ---
Cardioversion Cardioversion Date of procedure: 12/10/20 Procedure: Elective electrical cardioversion Pre-op diagnosis: Atrial fibrillation Post-op diagnosis: same Indications: Atrial fibrillation Description of procedure: Brief history present illness: Patient is a pleasant 85-year-old female with a past medical history significant for hypertension and symptomatic atrial fibrillation more persistent of late admitted with interval symptoms, mild heart failure with preserved ejection fraction who has been compliant with Eliquis 5 mg twice daily without missing a single dose in several months referred for elective electrical cardioversion in attempt to restore sinus rhythm. Procedure in detail: After verbal and written informed consent was obtained the patient risks, benefits, and alternatives explained in detail the patient agreed to proceed with the plan of care as outlined above. Patient was evaluated at bedside in the [facility] room. On examination, neck was supple with normal range of motion, no restrictions to opening of the oral cavity, jaw angle and posterior hypopharynx was clear. Lungs were clear to auscultation. Patient was placed in appropriate 30 to 45 degree angle in a supine position. Patient was monitored throughout the study with telemetry, oxygen saturation, end-tidal CO2 monitoring, blood pressure, heart rate, and respirations. Anterior and posterior defibrillator pads placed in the appropriate positions. After confirmation of adequate sedation electrical cardioversion was carried out without complication. Patient tolerated the procedure well without difficulty. Sedation: Moderate Sedation/Anesthesia administration: Patient denied previous intolerance or complications with anesthesia/sedation. Please see sedation note for documentation of the pre-procedure physical examination. A total of 2.5mg intravenous Versed and a total of 75mcg intravenous Fentanyl in multiple divided doses was utilized for moderate sedation. Sedation start time was 1356 and end time was 1406 for a total of 10 minutes [id number] intra-procedure time. Sedation was administered by a qualified observer Matt Cristina RN under my supervision with intra-procedure [id number] observation and management throughout the entirety of the procedure. There were no other issues or complications and patient tolerated the procedure well and sedation protocol well and I was present for the entirety. Findings: Elective electrical cardioversion: After confirmation of adequate sedation and persistence of atrial fibrillation, 200 joules synched biphasic energy x1 was delivered which was unsuccessful in restoring sinus rhythm. Due to lack of response with cardioversion, repeat attempts were not made in favor of continuing Amiodarone loading protocol. Complications: None Conclusion: Unsuccessful attempt restoring sinus rhythm with 200 joules synched biphasic energy x1. Repeat cardioversion attempts were deferred at this time given low likelihood of success given complete lack of response.
[2020-12-10] MEDS: AMIODARONE 360 MG/D5W 200 ML 360 MG/200 ML BAG 16.67 MG IV CONT (17:17)
--- NOTE | 2020-12-10 17:17 | PM.IMPN ---
Progress Note: A&P Assessment and Plan (1) Atrial fib/flutter, transient: Status: Acute Assessment and Plan: currently patient is admitted to IMU Cardiology consulted. She underwen and unsuccessful attempt at electrical cardioversion. Continue home meds (2) Venous insufficiency of both lower extremities: Code(s): I87.2 - Venous insufficiency (chronic) (peripheral) Status: Acute Assessment and Plan: Compression stockings (3) Benign paroxysmal vertigo, bilateral: Code(s): H81.13 - Benign paroxysmal vertigo, bilateral Status: Acute Assessment and Plan: Meclizine p.r.n. (4) Spinal stenosis of lumbar region with neurogenic claudication: Code(s): M48.062 - Spinal stenosis, lumbar region with neurogenic claudication Status: Acute Assessment and Plan: Unchanged. Monitor clinically (5) Diverticulosis large intestine w/o perforation or abscess w/bleeding: Code(s): K57.31 - Diverticulosis of large intestine without perforation or abscess with bleeding Status: Acute Assessment and Plan: Unchanged. Monitor clinically. (6) Chronic sinusitis of both maxillary sinuses: Code(s): J32.0 - Chronic maxillary sinusitis Status: Acute Assessment and Plan: Unchanged. Monitor clinically. Subjective Date/time seen: 12/10/20 12:00 Narrative: this is an 85-year-old lady with past medical history significant for atrial fibrillation, benign paroxysmal vertigo, bronchitis, chronic sinusitis, diverticulosis, essential hypertension, spinal stenosis, neurogenic claudication. 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 Today she presented to the emergency room due to worsening shortness of breath, chest tightness, dizziness, lightheadedness, leg swelling, no fevers no rigors no chills no cough no sputum production ,no nausea, no vomiting ,no abdominal pain no PND ,no orthopnea, no syncope or near syncope. Preliminary workup was essentially no review EKG showed atrial fibrillation with slow ventricular response. Decision has been made to place the patient in observation for further evaluation management and treatment. Patient has been compliant with Eliquis 5 mg twice daily without missing a single dose in several months was referred for elective electrical cardioversion in attempt to restore sinus rhythm.She underwent an unsuccessful attempt restoring sinus rhythm with 200 joules synched biphasic energy x1. Repeat cardioversion attempts were deferred at this time given low likelihood of success given complete lack of response. Review of Systems Constitutional: Constitutional: Denies chills, Denies fatigue and Denies fever(s) Eyes: Eyes: Denies change in vision ENT: Denies dysphagia, Reports vertigo, Reports dizziness, Denies nasal congestion, Denies nasal discharge, Denies nasal obstruction and Reports disequilibrium Cardiovascular: Cardiovascular: Reports chest pain at rest, Reports pedal edema, Reports irregular heart rhythm, Denies radiating jaw, neck or arm pain, Denies palpitations, Reports dyspnea, Reports dyspnea on exertion and Denies orthopnea Respiratory: Respiratory: Denies cough, Reports dyspnea and Reports dyspnea on exertion Gastrointestinal: Gastrointestinal: Denies abdominal pain, Denies dysphagia, Denies dyspepsia, Denies heartburn, Denies nausea and Denies vomiting Genitourinary: Genitourinary: Reports no additional female genitourinary complaints Musculoskeletal: Musculoskeletal: Reports no additional musculoskeletal complaints Integumentary/Breasts: Skin/Breast: Reports system reviewed and no additional complaints, except as docu Neurologic: Reports system reviewed and no additional complaints, except as documented, Reports vertigo, Reports dizziness and Reports disequilibrium Psychiatric: Psychiatric: Reports no additional psychiatric complaints End
[2020-12-10] MEDS: METOPROLOL TARTRATE 25 MG TABLET PO (20:39)
[2020-12-10] MEDS: rOPINIRole HCL 1 MG TABLET PO (23:11)
[2020-12-11] VITALS (20 sets, daily range): BP systolic 100–132; BP diastolic 62–86; PULSE 70–102; RESP 16–20; TEMP 36.1–37.1; O2SAT 95–100
[2020-12-11] MEDS: AMIODARONE 360 MG/D5W 200 ML 360 MG/200 ML BAG 16.67 MG IV CONT (07:01)
[2020-12-11] MEDS: APIXABAN 5 MG TABLET PO ×2 (09:00→21:16)
[2020-12-11] MEDS: METOPROLOL TARTRATE 25 MG TABLET PO ×2 (09:00→21:16)
--- NOTE | 2020-12-11 12:29 | PM.IMPN ---
Progress Note: A&P Assessment and Plan (1) Atrial fib/flutter, transient: Status: Acute Assessment and Plan: Symptomatic atrial fibrillation despite adequate heart rate control with progressive fatigue and exertional dyspnea. Currently patient is admitted to IMU. No telemetry events reported overnight. Cardiology consulted. She underwent and unsuccessful attempt at electrical cardioversion on 12/10/2020. currently improving clinically on amiodarone drip. continue iv amiodarone. Follow up cardiology recommendation for transition to oral amiodarone. (2) Venous insufficiency of both lower extremities: Code(s): I87.2 - Venous insufficiency (chronic) (peripheral) Status: Acute Assessment and Plan: Compression stockings (3) Benign paroxysmal vertigo, bilateral: Code(s): H81.13 - Benign paroxysmal vertigo, bilateral Status: Acute Assessment and Plan: Meclizine p.r.n. (4) Spinal stenosis of lumbar region with neurogenic claudication: Code(s): M48.062 - Spinal stenosis, lumbar region with neurogenic claudication Status: Acute Assessment and Plan: Unchanged. Monitor clinically (5) Diverticulosis large intestine w/o perforation or abscess w/bleeding: Code(s): K57.31 - Diverticulosis of large intestine without perforation or abscess with bleeding Status: Acute Assessment and Plan: Unchanged. Monitor clinically. (6) Chronic sinusitis of both maxillary sinuses: Code(s): J32.0 - Chronic maxillary sinusitis Status: Acute Assessment and Plan: Unchanged. Monitor clinically. (7) Acute heart failure with preserved ejection fraction (HFpEF): Code(s): I50.31 - Acute diastolic (congestive) heart failure Status: Acute Assessment and Plan: Mild acute heart failure with preserved ejection fraction resolved with IV Lasix 40 mg x 1 secondary to atrial fibrillation. Check 2D echocardiogram to establish preservation of LV function, valve pathology pulmonary pressures. Recommendation to follow. Resume home furosemide 20 mg daily. (8) Chronic anticoagulation: Code(s): Z79.01 - group home (current) use of anticoagulants Status: Acute Assessment and Plan: Continue Eliquis 5 mg twice daily. As above, no interruption in anticoagulation in many months. No evidence of bleeding, falls or head trauma. (9) Essential (primary) hypertension: Code(s): I10 - Essential (primary) hypertension Status: Acute Assessment and Plan: Continue lasix 20 mg PO daily and metoprolol tartrate 50 mg PO BID. Subjective Date/time seen: 12/11/20 10:30 S: Patient is examined at the bedside; no complaints. She is feeling better with improved energy levels. Review of Systems Constitutional: Constitutional: Denies chills, Denies fatigue and Denies fever(s) Eyes: Eyes: Denies change in vision ENT: Denies dysphagia, Reports vertigo, Reports dizziness, Denies nasal congestion, Denies nasal discharge, Denies nasal obstruction and Reports disequilibrium Cardiovascular: Cardiovascular: Reports chest pain at rest, Reports pedal edema, Reports irregular heart rhythm, Denies radiating jaw, neck or arm pain, Denies palpitations, Reports dyspnea, Reports dyspnea on exertion and Denies orthopnea Respiratory: Respiratory: Denies cough, Reports dyspnea and Reports dyspnea on exertion Gastrointestinal: Gastrointestinal: Denies abdominal pain, Denies dysphagia, Denies dyspepsia, Denies heartburn, Denies nausea and Denies vomiting Genitourinary: Genitourinary: Reports no additional female genitourinary complaints Musculoskeletal: Musculoskeletal: Reports no additional musculoskeletal complaints Integumentary/Breasts: Skin/Breast: Reports system reviewed and no additional complaints, except as docu Neurologic: Reports system reviewed and no additional complaints, except as documented, Reports vertigo, Reports dizziness and Reports di
--- NOTE | 2020-12-11 12:42 | PM.PNCARD ---
Progress Note: A&P Additional Plan 85-year-old lady with: Paroxysmal atrial fibrillation becoming more persistent and problematic recently. Plans are in place to transition her to oral amiodarone today, allow her to be discharged and arrange for office follow-up with Dr. Nixon . Following that plans would be made for another attempt at electrical cardioversion in about a month unless she converts as amiodarone is loaded orally. Guille Wilson MD [facility] Subjective Date/time seen: Date of service: 12/11/20 12:42 Interval history: Follow-up visit in this 85-year-old lady with: Paroxysmal atrial fibrillation which has become persistent recently and has resulted in symptomatic decompensation and decision has been made by my partner, who follows this lady's case to recommend restoring sinus rhythm. She was placed on some intravenous amiodarone and cardioverted with 200 joules unsuccessfully yesterday. She is asymptomatic this morning still has IV amiodarone running and is hoping to be discharged. Told the patient that I would plan on transitioning her to oral amiodarone today and allowing her to be discharged. We will keep her on an oral regimen of 400 mg daily for about a month and then bring her in as an outpatient and attempt another cardioversion after she has been completely loaded with p.o. amiodarone. If she is stable rate controlled and asymptomatic which appears to be the case she does not have to remain in the hospital any longer at this time Exam Const: General: comfortable and no acute distress Other: Pleasant elderly lady no complaints HENMT: Mouth: Yes moist mucous membranes Eyes: Sclera: sclerae normal Pupils: Equal, round and reactive pupils present Neck: Neck: supple and no JVD Resp: Effort & Inspection: normal respiratory effort Auscultation: clear to auscultation bilaterally Cardio: Rate: regular rate Rhythm: abnormal rhythm irregularly irregular GI: GI Palp: Yes Soft to palpation Auscultation: normal bowel sounds Skin: General skin exam: normal color Neuro: Cognition (Neuro): normal cognition Extrem: General: normal to inspection Objective Data Vital Signs Vital Signs: Vital Signs - 24 hr 12/10/20 13:45 12/10/20 13:55 12/10/20 14:00 Temperature Pulse Rate 101 H 102 H 92 Respiratory Rate 22 H 17 17 Blood Pressure 136/88 150/83 H 122/67 Pulse Oximetry 100 100 100 12/10/20 14:15 12/10/20 14:30 12/10/20 14:45 Temperature Pulse Rate 90 96 90 Respiratory Rate 19 19 20 Blood Pressure 111/73 112/69 110/65 Pulse Oximetry 92 93 94 12/10/20 15:00 12/10/20 16:00 12/10/20 17:17 Temperature Pulse Rate 90 92 91 Respiratory Rate 19 Blood Pressure 107/74 Pulse Oximetry 92 12/10/20 17:21 12/10/20 17:35 12/10/20 18:00 Temperature 35.9 C L Pulse Rate 91 94 97 Respiratory Rate 18 Blood Pressure 127/61 Pulse Oximetry 95 12/10/20 19:42 12/10/20 20:00 12/10/20 20:39 Temperature 36.3 C L Pulse Rate 81 94 92 Respiratory Rate 16 16 Blood Pressure 109/61 Pulse Oximetry 97 97 12/10/20 21:08 12/10/20 22:00 12/11/20 00:00 Temperature 36.3 C L Pulse Rate 80 90 77 Respiratory Rate 18 16 Blood Pressure 132/65 Pulse Oximetry 96 100 12/11/20 02:00 12/11/20 04:00 12/11/20 04:26 Temperature 36.4 C Pulse Rate 78 80 86 Respiratory Rate 20 20 Blood Pressure 112/66 Pulse Oximetry 95 95 12/11/20 06:00 12/11/20 07:01 12/11/20 08:00 Temperature 36.2 C L Pulse Rate 76 92 87 Respiratory Rate 18 Blood Pressure 112/66 126/73 Pulse Oximetry 98 12/11/20 09:00 12/11/20 10:00 Temperature Pulse Rate 81 70 Respiratory Rate Blood Pressure Pulse Oximetry Intake/Output Intake/Output: Intake & Output 12/08/20 12/09/20 12/10/20 12/11/20 23:59 23:59 23:59 23:59 Intake Total 540 600 Output Total 1800 650 Balance -1260 -50 Meds/Results Medications: Active Medications Generic Name Dose Rout
[2020-12-11] MEDS: AMIODARONE HCL 200 MG TABLET PO ×2 (14:52→21:15)
[2020-12-12] VITALS (9 sets, daily range): BP systolic 125–126; BP diastolic 72–83; PULSE 67–95; RESP 20; TEMP 36.4–36.5; O2SAT 96–98
[2020-12-12] MEDS: AMIODARONE HCL 200 MG TABLET PO (08:43)
[2020-12-12] MEDS: APIXABAN 5 MG TABLET PO (08:44)
[2020-12-12] MEDS: METOPROLOL TARTRATE 25 MG TABLET PO (08:44)
--- NOTE | 2020-12-12 11:03 | PM.DS ---
DS: Admitting Diagnosis Discharge Date 12/12/2020 Admitting Diagnosis Atrial flutter with slow ventricular response. DS: Discharge Diagnosis Discharge Diagnosis (1) Atrial fib/flutter, transient: Status: Acute Assessment and Plan: Symptomatic atrial fibrillation despite adequate heart rate control with progressive fatigue and exertional dyspnea. Currently patient is admitted to IMU. No telemetry events reported overnight. Cardiology consulted. She underwent and unsuccessful attempt at electrical cardioversion on 12/10/2020. currently improving clinically on amiodarone drip. continue iv amiodarone. Follow up cardiology recommendation for transition to oral amiodarone. (2) Venous insufficiency of both lower extremities: Code(s): I87.2 - Venous insufficiency (chronic) (peripheral) Status: Acute Assessment and Plan: Compression stockings (3) Benign paroxysmal vertigo, bilateral: Code(s): H81.13 - Benign paroxysmal vertigo, bilateral Status: Acute Assessment and Plan: Meclizine p.r.n. (4) Spinal stenosis of lumbar region with neurogenic claudication: Code(s): M48.062 - Spinal stenosis, lumbar region with neurogenic claudication Status: Acute Assessment and Plan: Unchanged. Monitor clinically (5) Diverticulosis large intestine w/o perforation or abscess w/bleeding: Code(s): K57.31 - Diverticulosis of large intestine without perforation or abscess with bleeding Status: Acute Assessment and Plan: Unchanged. Monitor clinically. (6) Chronic sinusitis of both maxillary sinuses: Code(s): J32.0 - Chronic maxillary sinusitis Status: Acute Assessment and Plan: Unchanged. Monitor clinically. (7) Acute heart failure with preserved ejection fraction (HFpEF): Code(s): I50.31 - Acute diastolic (congestive) heart failure Status: Acute Assessment and Plan: Mild acute heart failure with preserved ejection fraction resolved with IV Lasix 40 mg x 1 secondary to atrial fibrillation. Check 2D echocardiogram to establish preservation of LV function, valve pathology pulmonary pressures. Recommendation to follow. Resume home furosemide 20 mg daily. 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 As above, no interruption in anticoagulation in many months. No evidence of bleeding, falls or head trauma. (9) Essential (primary) hypertension: Code(s): I10 - Essential (primary) hypertension Status: Acute Assessment and Plan: Continue lasix 20 mg PO daily and metoprolol tartrate 50 mg PO BID. DS: Summary Hospital Course Hospital Course: This is an 85-year-old lady with past medical history significant for atrial fibrillation, benign paroxysmal vertigo, bronchitis, chronic sinusitis, diverticulosis, essential hypertension: Spinal stenosis, neurogenic claudication. Patient has been dealing with her atrial fibrillation as it has been acting up has been seeing her steam setter at the office. On 12/09/2020, she presented to the emergency room due to worsening shortness of breath, chest tightness, dizziness, lightheadedness, leg swelling, no fevers no rigors no chills no cough no sputum production ,no nausea, no vomiting ,no abdominal pain no PND ,no orthopnea, no syncope or near syncope. Preliminary workup was essentially no review EKG showed atrial fibrillation with slow ventricular response. Decision was made to place the patient in observation for further evaluation management and treatment. She was evaluated by cardiology and scheduled for electrical cardioversion. Her paroxysmal atrial fibrillation has recently become persistent resulting in symptomatic decompensation and decision has been made by Dr. Nixon to restore sinus rhythm. She was placed on some intravenous amiodarone and cardio
--- NOTE | 2020-12-12 13:46 | PC.NURSE ---
Patient discharged to home today at 12:55. Education was provided on medication and follow-up. Patient had no further questions at this time.
== END 2020-12-12 12:55 | disposition home or self-care (01) | DRG 308 ==
LOC: ANHED 21:58 → ANHIMU 23:44
PROVIDERS: Emergency Medicine; Internal Medicine Cardiovascular Disease; Admitting Provider Internal Medicine; Emergency Provider Emergency Medicine; PCP Family Medicine; Visit Provider Internal Medicine
PROC: 5A2204Z Restoration of Cardiac Rhythm, Single (ICD-10-PCS; principal; 2020-12-10 13:00)
DX: I48.19 Other persistent atrial fibrillation (principal); I50.31 Acute diastolic (congestive) heart failure; K57.32 Diverticulitis of large intestine without perforation or abscess without bleeding; I11.0 Hypertensive heart disease with heart failure; I48.92 Unspecified atrial flutter; I87.2 Venous insufficiency (chronic) (peripheral); H81.13 Benign paroxysmal vertigo, bilateral; I70.0 Atherosclerosis of aorta; J32.0 Chronic maxillary sinusitis; M48.062 Spinal stenosis, lumbar region with neurogenic claudication; Z79.01 Long term (current) use of anticoagulants; Z87.891 Personal history of nicotine dependence
CPT/HCPCS: 36415; 71046; 80048; 83880; 84484; 85025; 85610; 85730; 92960; 93005; 93306; 96365; 96366; 96374; 96375; 99285; A9270; G0378; J0282; J1940; J2250; J3010; J7040

== ENCOUNTER 2020-12-29 16:38 | Observation (INO) | payer OTHER, SELFPAY ==
[2020-12-29] VITALS (51 sets, daily range): BP systolic 121–161; BP diastolic 68–97; PULSE 64–85; RESP 17–30; TEMP 36.5–36.6; O2SAT 95–98; BMI 31.8; BMI 31.4
--- NOTE | ~2020-12-29 | XR_ITS ---
EXAMINATION: XR chest 1V portable INDICATION: Chest pain TECHNIQUE: Portable AP chest at 1703 hours COMPARISON: 12/09/2020 FINDINGS: The lungs are free of acute opacities. There is no pleural effusion or pneumothorax. The ca rdiomediastinal silhouette is normal. IMPRESSION: 1. No acute cardiopulmonary abnormality. Reviewed, dictated and finalized at location B.
--- NOTE | 2020-12-29 16:59 | ECG_ITS ---
Measurements Intervals [place] Rate: 76 P: HI: 0 QRS: 23 QRSD: 84 T: 22 QT: 315 QTc: 356 Interpretive Statements ATRIAL FIBRILLATION LOW QRS VOLTAGE IN PRECORDIAL LEADS ABNORMAL ECG Electronically Signed On 12-30-2020 8:02:33 CDT by Ricardo Barreto D.O.
[2020-12-29 17:56] LABS: Basophils Percent Auto 0.6 % (0.2-1.2); Eosinophils Absolute Auto 0.1 K/mm3 (0-0.3); Hemoglobin 14.2 g/dL (12.0-15.0); Immature Granulocyte Absolute 0.01 K/mm3 (0.00-0.031); Immature Granulocyte Percent A 0.2 % (0-0.5); Lymphocytes Absolute Auto 1.68 K/mm3 (0.9-3.2); Lymphocytes Percent Auto 26.2 % (18.3-44.2); Mean Corpuscular Hemoglobin 29.2 pg (26-34); Mean Corpuscular Volume 88.5 fl (80-100); Mean Platelet Volume 10.2 fl (7.4-10.4); Monocytes Absolute Auto 0.4 K/mm3 (0.1-0.6); Monocytes Percent Auto 6.7 % (2.6-8.5); Neutrophils Absolute Auto 4.1 K/mm3 (1.3-6.7); Neutrophils Percent Auto 64.3 % (45.5-73.1); Platelet Count Result 249 k/mm3 (150-375); Red Blood Count 4.86 M/mm3 (4.2-5.4); Red Cell Distribution Width 13.3 % (11.5-14.5); White Blood Count 6.4 K/mm3 (4.5-10.0)
[2020-12-29 18:08] LABS: Alanine Aminotransferase 16 U/L (4-35); Albumin Level 4.4 g/dL (3.5-5.1); Alkaline Phosphatase 75 U/L (38-126); Anion Gap 8 mmol/L (8-16); Aspartate Amino Transferase 28 U/L (14-36); Blood Urea Nitrogen 16 mg/dL (7-17); Calcium 9.2 mg/dL (8.4-10.2); Carbon Dioxide 28 mmol/L (22-30); Chloride 99 mmol/L (98-107); Estimated CRCL calculation 57 ml/min; Estimated Glomerular Filt Rate > 60; Glucose 105 mg/dL (65-110); Potassium 4.4 mmol/L (3.4-5.0); Sodium 135 mmol/L (137-145)
[2020-12-29 18:12] LABS: INR 1.1
[2020-12-29 18:20] LABS: NT Pro B Type Natriuretic Pept 892 pg/mL (5-100); Troponin I < 0.012 ng/mL (0.000-0.034)
--- NOTE | 2020-12-29 18:51 | PC.NURSE ---
Pt called out for chest pain about 5 minutes ago, felt as a pressure in her left chest that has now improved at 3/10. No changes to cardiac exercise physiologist during that time, reviewed. MD aware. No new orders at this time. Will continue to monitor
--- NOTE | 2020-12-29 20:58 | ED.CHESTPAIN ---
HPI - Chest Pain General Chief Complaint: Chest Pain Stated Complaint: arm and back pain Time Seen by Provider: 12/29/20 16:59 Source: patient Mode of arrival: ambulatory Limitations: no limitations History of Present Illness HPI narrative: 85-year-old with a history of atrial fibrillation presently taking Eliquis here with complaints of left-sided chest pain radiating into left arm and shoulder started this morning. Patient states the she gets pain randomly. She denies any shortness of breath, nausea or vomiting. She denies having coronary artery disease. Patient states that she was admitted a few weeks ago for A. fib try to cardiovert her but was unsuccessful. complaint: chest pain Onset (ago): day(s) (1) Timing of current episode: episodic Pain location: left chest Pain radiation: left arm and neck Severity: moderate Quality: aching Relieving factors: nothing Risk Factors Coronary artery disease risk factors: none Related Data Home Medications Medication Instructions Recorded Confirmed apixaban 5 mg tablet 5 mg PO BID 01/02/19 12/21/20 losartan 50 mg tablet 50 mg PO DAILY 12/21/20 12/21/20 psyllium husk 3.4 gram/5.4 gram 1 tbsp PO DAILY 12/21/20 12/21/20 oral powder Allergies Allergy/AdvReac Type Severity Reaction Status Date / Time levofloxacin Allergy Mild Nausea and Verified 12/29/20 17:28 Vomiting metronidazole Allergy Mild Nausea and Verified 12/29/20 17:28 Vomiting adhesive tape Allergy Unknown BLISTERS Verified 12/29/20 17:28 codeine Allergy Unknown Vomiting Verified 12/29/20 17:28 Iodinated Contrast Media Allergy Unknown Unknown Verified 12/29/20 17:28 Contrast Media Allergy Unknown unknown Uncoded 12/29/20 17:28 Review of Systems Review of Systems: All systems reviewed & are unremarkable except as noted in HPI and below Constitutional: Constitutional: Reports no additional constitutional complaints Eyes: Eyes: Reports no additional eye complaints ENT: Reports system reviewed and no additional complaints, except as documented Cardiovascular: Cardiovascular: Reports as per HPI Respiratory: Respiratory: Reports no additional respiratory complaints Gastrointestinal: Gastrointestinal: Reports no additional gastrointestinal complaints Musculoskeletal: Musculoskeletal: Reports no additional musculoskeletal complaints PMFSH Past Medical History Medical History Allergic rhinitis, unspecified Atherosclerosis of aorta Benign paroxysmal vertigo, bilateral Bronchitis Chronic atrial fibrillation Chronic sinusitis of both maxillary sinuses Closed displaced fracture of head of right radius with routine healing Closed nondisplaced fracture of lateral malleolus of right fibula Current use of [facility] anticoagulation Diverticulosis large intestine w/o perforation or abscess w/bleeding Essential (primary) hypertension PAF (paroxysmal atrial fibrillation) Pneumonia and influenza Postmenopausal Spinal stenosis of lumbar region with neurogenic claudication Family History Family History Mother Patient's mother is Family history of malignant neoplasm Sibling Asthma Other Family history of arthritis Social History Social History Social History: Smoking status: Never smoker Second hand tobacco smoke exposure: No Alcohol intake: never Substance use: never Substance use type: does not use Gender identity (if verbalized by the patient): Female Sexual Orientation (if Verbalized by the Patient): Straight or Heterosexual Spiritual care concerns: No Exam Narrative: GENERAL: Well-appearing, well-nourished, and in no acute distress. HEAD: Normocephalic, atraumatic. EYES: PERRLA and EOMI NECK: Supple. CHEST: Clear to auscultation. No respiratory distress. HEART: Irregularly irregular. No murmur
[2020-12-29 21:29] LABS: Troponin I < 0.012 ng/mL (0.000-0.034)
--- NOTE | 2020-12-29 23:45 | PM.IMHP ---
H&P: HPI History of Present Illness Date/Time: 12/29/20 23:45 Chief Complaint: chest pain Narrative: 85-year-old with a history of atrial fibrillation on Eliquis presents to the ED today with left-sided chest pain radiating to the left arm and shoulder towards the back area started at 8:30 a.m. this morning. She was lying down when the pain started and persisted throughout the day until she came to the ER for evaluation. It resolved on its own spontaneously after she been to the ER. She denies any other associated symptoms with the chest pain and reports that as sharp quality. She always has shortness of breath and hence was not related to the chest pain that she was having. No associated nausea vomiting or diaphoresis. She states that when she had the chest pain she had her heart rate elevated but she is not sure how high it was. She states she always gets chest pain with her atrial fibrillation /flutter. She was in here for atrial flutter last month and was cardioverted but she came right back to her atrial fib flutter. She has since then been on amiodarone for pharmacologic cardioversion however has remained in atrial flutter / fibrillation. Her initial troponin was negative along with her EKG with nonspecific ST-T changes. She is admitted for observation and further evaluation of her chest pain. Review of Systems Review of Systems: - CONSTITUTIONAL: Denies weight loss, fever and chills. - HEENT: Denies changes in vision and hearing - RESPIRATORY: Reports chronic SOB and denies cough. - CV: reports palpitations and CP. - GI: Denies abdominal pain, nausea, vomiting and diarrhea. - : Denies dysuria and urinary frequency. - MSK: Denies myalgia and joint pain. - SKIN: Denies rash and pruritus. - NEUROLOGICAL: Denies headache and syncope. - PSYCHIATRIC: Denies recent changes in mood. Denies anxiety and depression. 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 Diverticulosis large intestine w/o perforation or abscess w/bleeding Essential (primary) hypertension PAF (paroxysmal atrial fibrillation) Pneumonia and influenza Postmenopausal Spinal stenosis of lumbar region with neurogenic claudication Family History Family History Mother Patient's mother is Family history of malignant neoplasm Sibling Asthma Other Family history of arthritis Social History Social History Social History: Smoking status: Never smoker Second hand tobacco smoke exposure: No Alcohol intake: never Substance use: never Substance use type: does not use Gender identity (if verbalized by the patient): Female Sexual Orientation (if Verbalized by the Patient): Straight or Heterosexual Spiritual care concerns: No Meds Home Medications and Allergies Home Medications Medication Instructions Recorded Confirmed Type apixaban 5 mg tablet 5 mg PO BID 01/02/19 12/21/20 History furosemide 20 mg tablet 20 mg PO QAM #30 tablet 10/12/20 12/21/20 Rx amiodarone 400 mg PO DAILY #30 tablet 12/12/20 12/21/20 Rx metoprolol tartrate 25 mg PO Q12HR #60 tablet 12/12/20 12/21/20 Rx losartan 50 mg tablet 50 mg PO DAILY 12/21/20 12/21/20 History psyllium husk 3.4 gram/5.4 gram 1 tbsp PO DAILY
[2020-12-30] VITALS (8 sets, daily range): BP systolic 124–133; BP diastolic 64–74; PULSE 67–87; RESP 16–20; TEMP 36.4–36.8; O2SAT 92–96
[2020-12-30 01:35] LABS: Troponin I < 0.012 ng/mL (0.000-0.034)
--- NOTE | 2020-12-30 04:20 | ADMGEN ---
This patient, Pearl Goodman, was admitted to IMU Room 205-02 at 2300 on 12/29/20. Patient/family oriented to hospital policies and general routines including ID bracelet, bed and alarms, visiting hours, pain management, procedures, bathroom and other care routines, personal items, smoking policy, room service/diet, and visiting hours. Information on how to activate the Rapid Response Team has been discussed. Patient/Family are encouraged to report perceived risks to care and to ask questions if they do not understand what they are told or what they should do.
[2020-12-30] MEDS: NITROGLYCERIN OINTMENT 1 INCH DOSE TRANSDERM (06:00)
--- NOTE | 2020-12-30 12:21 | PM.DS ---
DS: Admitting Diagnosis Discharge Date 12/30/2020 Admitting Diagnosis Chest pain DS: Discharge Diagnosis Discharge Diagnosis (1) Chest pain: Qualifiers: Chest pain type: unspecified Qualified Code(s): R07.9 - Chest pain, unspecified Code(s): R07.9 - Chest pain, unspecified Status: Acute (2) Chronic anticoagulation: Code(s): Z79.01 - [facility] (current) use of anticoagulants Status: Acute (3) Heart failure with preserved ejection fraction: Qualifiers: Heart failure chronicity: chronic Qualified Code(s): I50.32 - Chronic diastolic (congestive) heart failure Code(s): I50.30 - Unspecified diastolic (congestive) heart failure Status: Acute (4) Persistent atrial fibrillation: Code(s): I48.19 - Other persistent atrial fibrillation Status: Acute DS: Summary Hospital Course Reason for hospitalization: Chest pain Hospital Course: 84-year-old female with past medical history significant for atrial fibrillation on Eliquis, hypertension and diastolic heart failure presented with chest pain. She was managed as a case of possible ACS and monitored overnight with troponin monitoring. Troponin resulted negative x3. EKG with AFib with however rate controlled. Cardiology was consulted and patient was cleared for discharge. In my opinion patient should get a stress test for this kind of pain. However cardiology wants to follow-up as outpatient and we will managed as such. She has been is in stable condition with outpatient cardiology follow-up. Status at Discharge Overall status at discharge: patient is progressing back to baseline Time Spent with Patient Time attestation: Total time spent providing and/or coordinating discharge services: Time spent: Less than 30 minutes Exam Narrative: GENERAL: Well-appearing, well-nourished, and in no acute distress. HEAD: Normocephalic, atraumatic. EYES: PERRLA and EOMI NECK: Supple. nontender CHEST: Clear to auscultation. No respiratory distress. HEART: Irregularly irregular. No murmur heard. Normal peripheral pulses. ABDOMEN: Soft, nontender, nondistended, normal active bowel sounds. EXTREMITIES: Normal range of motion. No edema. SKIN: Warm, dry, no rash. NEURO: No focal deficits. Alert and oriented x3. PSYCH: Normal mood and affect. DS: Data Data Completed and Pending Labs on day of discharge: Labs from last 24 hours 12/30/20 12/29/20 12/29/20 00:35 20:52 17:49 WBC RBC Hgb Hct MCV MCH MCHC RDW Plt Count MPV Immature Gran % (Auto) Neut % (Auto) Lymph % (Auto) Gem % (Auto) Eos % (Auto) Baso % (Auto) Lymph # (Auto) Gem # (Auto) Eos # (Auto) Baso # (Auto) Abs Immat Gran (auto) Absolute Neuts (auto) Absolute Nucleated RBC Nucleated RBC % PT INR Sodium Potassium Chloride Carbon Dioxide Anion Gap BUN Creatinine Estim Creat Clear Calc Estimated GFR Glucose Calcium Total Bilirubin AST ALT Alkaline Phosphatase Troponin I < 0.012 < 0.012 NT-Pro-B Natriuret Pep Total Protein Albumin TSH (Reflex) 2.830 12/29/20 12/29/20 12/29/20 17:49 17:49 17:49 WBC 6.4 RBC 4.86 Hgb 14.2 Hct 43.0 MCV 88.5 MCH 29.2 MCHC 33.0 RDW 13.3 Plt Count 249 MPV 10.2 Immature Gran % (Auto) 0.2 Neut % (Auto) 64.3 Lymph % (Auto) 26.2 Gem % (Auto) 6.7 Eos % (Auto) 2.0 Baso % (Auto) 0.6 Lymph # (Auto) 1.68 Gem # (Auto) 0.4 Eos # (Auto) 0.1 Baso # (Auto) 0.0 Abs Immat Gran (auto) 0.01 Absolute Neuts (auto) 4.1 Absolute Nucleated RBC 0.0 Nucleated RBC % 0.0 PT 14.0 INR 1.1 Sodium 135 L Potassium 4.4 Chloride 99 Carbon Dioxide 28 Anion Gap 8 BUN 16 Creatinine 0.70 Estim Creat Clear Calc 57 Estimated GFR > 60 Glucose 105 Calcium 9.2 Total Bilirubin
--- NOTE | 2020-12-30 13:36 | PM.CNCAR ---
Assessment and Plan Assessment and plan (1) Shoulder pain, left: Code(s): M25.512 - Pain in left shoulder Status: Acute Assessment and Plan: Patient presents with left posterior shoulder pain radiating to the left arm worse with movement, deep breathing currently resolved spontaneously after several hours ruled out for myocardial infarction with negative serial cardiac enzymes. No acute ischemic changes by EKG. Patient denied associated nausea, vomiting, diaphoresis or shortness of breath. She otherwise states she feels perfectly well and as at her baseline and wishes to be discharged home. She denied trauma recent illnesses, fevers, chills or productive cough. Chest x-ray without acute infiltrate and is otherwise unremarkable. Discussed her symptoms very likely musculoskeletal in etiology and noncardiac. However, we discussed possibility her atypical symptoms could be related to underlying CAD but without infarction in which case ischemic evaluation may be considered. She wishes to consider this on an outpatient basis if necessary. However, as the symptoms persisted for several hours with no evidence of injury by EKG or laboratory studies given her description very likely noncardiac. She is not currently in decompensated heart failure nor is there evidence for pneumonia or hypoxia. Stable from cardiac perspective. Disposition per hospitalist service. Follow-up in the office with me in 2 weeks notify the office with any recurrence or new associated symptoms. Patient verbalized understanding and agreed with plan of care. Further recommendations per hospitalist service. (2) Persistent atrial fibrillation: Code(s): I48.19 - Other persistent atrial fibrillation Status: Acute Assessment and Plan: Heart rate well controlled. Patient notes a significant improvement after initiation of amiodarone despite the fact that she remains in atrial fibrillation. I offered her cardioversion this hospitalization however she wishes to continue for least 4 weeks on amiodarone prior to considering cardioversion and given the fact that she is feeling very well and tolerating amiodarone we feel there is no urgency in proceeding at this time. Therefore will continue amiodarone 400 mg daily with reduction to 200 mg daily in the next 1-2 weeks and continue systemic anticoagulation with Eliquis 5 mg b.i.d.. Monitor for bleeding. Notify the office with new concerns. We will further discuss plans for cardioversion when she is seen in the office in the next 2 weeks. (3) Heart failure with preserved ejection fraction: Qualifiers: Heart failure chronicity: chronic Qualified Code(s): I50.32 - Chronic diastolic (congestive) heart failure Code(s): I50.30 - Unspecified diastolic (congestive) heart failure Status: Acute Assessment and Plan: Currently well-compensated no acute issues at this time. Continue current medical therapy. 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 Monitor for bleeding as always. Stable at this time. History of Present Illness History of Present Illness Consult date/time: Date of service: 12/30/20 13:36 Cardiology consultation at the request of Dr. Brown of the [facility] service for opinion regarding complaints of left shoulder/arm pain and possible chest pain. Requesting physician: Leslie Brown MD Consult reason: chest pain (Left Shoulder pain) and Other Reason For Visit: chest pain Narrative: Patient is a very pleasant 85-year-old female whom I know as an outpatient with a history of persistent atrial fibrillation systemic anticoagulation with Eliquis and recent initiation of amiodarone after failed cardioversion November 2020, hypertension, and history of heart failure with preserved ejection fraction on low-dose furosemide who aft
== END 2020-12-30 12:56 | disposition home or self-care (01) ==
LOC: ANHED 21:04 → ANHIMU 21:54
PROVIDERS: Admitting Provider Internal Medicine; Emergency Provider Family Medicine; PCP Family Medicine; Visit Provider Internal Medicine
DX: R07.89 Other chest pain (principal); I50.32 Chronic diastolic (congestive) heart failure; I48.91 Unspecified atrial fibrillation; R06.00 Dyspnea, unspecified; I11.0 Hypertensive heart disease with heart failure; I27.20 Pulmonary hypertension, unspecified; I35.0 Nonrheumatic aortic (valve) stenosis; M25.512 Pain in left shoulder; Z79.01 Long term (current) use of anticoagulants
CPT/HCPCS: 36415; 71045; 80053; 83880; 84443; 84484; 85025; 85610; 93005; 99285; A9270; G0378

== ENCOUNTER 2021-01-19 01:38 | Day surgery (SDC) | payer OTHER, SELFPAY ==
[2021-01-18 11:02] VITALS: BMI 32.1
--- NOTE | 2021-01-19 07:00 | ECG_ITS ---
Measurements Intervals [place] Rate: 76 P: 54 DC: 263 QRS: 27 QRSD: 99 T: 30 QT: 413 QTc: 465 Interpretive Statements SINUS RHYTHM WITH FIRST DEGREE AV BLOCK EARLY PRECORDIAL R/S TRANSITION BORDERLINE ST-T WAVE ABNORMALITY- INF/HIGH LAT LEADS BASELINE ARTIFACT- I, III, AVR, AVL, V1 ABNORMAL ECG Electronically Signed On 01-19-2021 12:00:59 BLOWER INSTALLER by Ricardo Barreto D.O.
[2021-01-19 07:40] VITALS: BP 140/87; PULSE 75; RESP 21; O2SAT 97; BMI 31.1
[2021-01-19 07:50] LABS: Anion Gap 6 mmol/L (8-16); Blood Urea Nitrogen 15 mg/dL (7-17); Calcium 9.6 mg/dL (8.4-10.2); Carbon Dioxide 33 mmol/L (22-30); Chloride 98 mmol/L (98-107); Estimated CRCL calculation 51 ml/min; Estimated Glomerular Filt Rate > 60; Glucose 112 mg/dL (65-110); Magnesium 1.9 mg/dL (1.6-2.3); Potassium 4.1 mmol/L (3.4-5.0); Sodium 137 mmol/L (137-145)
--- NOTE | 2021-01-19 08:30 | ECG_ITS ---
Measurements Intervals [place] Rate: 82 P: IA: 0 QRS: 24 QRSD: 90 T: 32 QT: 352 QTc: 413 Interpretive Statements ATRIAL FIBRILLATION BORDERLINE ST-T WAVE ABNORMALITY- ANT/INF LEADS BASELINE ARTIFACT- I, II, III, AVR, AVL, AVF, V1-V6 ABNORMAL ECG Electronically Signed On 01-19-2021 7:29:08 NURSING ADMIN by Ricardo Barreto D.O.
--- NOTE | 2021-01-19 08:59 | WPDHPUPDATE1 ---
History and Physical Update Update Date/Time: 01/19/21 08:59 History and Physical has been reviewed, including an updated exam of the patient. There are NO changes in the patient's condition. Risks, benefits, and alternatives have been discussed and questions answered. Patient agrees to proceed with procedure.
--- NOTE | 2021-01-19 08:59 | WPDMODSED ---
Moderate Sedation Note-Pt Data Patient Data Diagnosis: Atrial fibrillation Present Complaint: None Procedure to be performed/Plan: Elective electrical cardioversion Allergies Allergy/AdvReac Type Severity Reaction Status Date / Time levofloxacin Allergy Mild Nausea and Verified 01/19/21 07:36 Vomiting metronidazole Allergy Mild Nausea and Verified 01/19/21 07:36 Vomiting adhesive tape Allergy Unknown BLISTERS Verified 01/19/21 07:36 codeine Allergy Unknown Vomiting Verified 01/19/21 07:36 Iodinated Contrast Media Allergy Unknown Unknown Verified 01/19/21 07:36 Contrast Media Allergy Unknown unknown Uncoded 01/19/21 07:36 Home Medications Medication Instructions Recorded Confirmed Type apixaban 5 mg tablet 5 mg PO BID 01/02/19 01/19/21 History furosemide 20 mg tablet 20 mg PO QAM #30 tablet 10/12/20 01/18/21 Rx amiodarone 400 mg PO DAILY #30 tablet 12/12/20 01/19/21 Rx metoprolol tartrate 25 mg PO Q12HR #60 tablet 12/12/20 01/18/21 Rx losartan 50 mg tablet 50 mg PO DAILY 12/21/20 01/19/21 History psyllium husk 3.4 gram/5.4 gram 1 tbsp PO DAILY 12/21/20 01/18/21 History oral powder Adult One Daily Multivitamin 1 tablet PO DAILY 12/30/20 01/18/21 History Calcium 600 600 mg BYMOUTH BID 12/30/20 01/18/21 History ropinirole 0.25 mg PO PRN 12/30/20 01/18/21 History Current Medications: Active Medications Sodium Chloride (Normal Saline Iv) 1,000 mls @ 30 mls/hr IV CONT .Q24H NARENDRA Sedation/Anesthesia: No previous sedation/anesthesia problems (including family history). 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 Diverticulosis large intestine w/o perforation or abscess w/bleeding Essential (primary) hypertension PAF (paroxysmal atrial fibrillation) Pneumonia and influenza Postmenopausal Spinal stenosis of lumbar region with neurogenic claudication Family History Family History Mother Patient's mother is Family history of malignant neoplasm Sibling Asthma Other Family history of arthritis Social History Social History Social History: Smoking status: Never smoker Second hand tobacco smoke exposure: No Alcohol intake: never Substance use: never Substance use type: does not use Gender identity (if verbalized by the patient): Female Sexual Orientation (if Verbalized by the Patient): Straight or Heterosexual Spiritual care concerns: No Mod Sed Physical Exam Physical Exam Pre Procedural Exam: Normal: Appearance, Eyes, Ears, Nose, Neck (Supple, normal range of motion), Throat (Posterior hypopharynx clear, nonerythematous), Airway (No obstruction, normal anatomy), Lungs (Clear to auscultation bilaterally), Heart Size, Heart Rate, Neuro Exam, Abdomen, Liver, Extremities and Skin and Variation: Heart Rhythm (Irregularly irregular rate and rhythm) Hours since solid foods: 12 Hours since liquid intake: 12 Mallampati Classification: class II and class III Internal Medicine - PN: Obj Da Vital Signs Vital Signs: Vital Signs - 24 hr 01/19/21 07:40 Pulse Rate 75 Respiratory Rate 21 H Blood Pressure 140/87 Pulse Oximetry 97 Meds/Results Medications: Active Medications Generic Name Dose Route Start Last Admin Trade Name Freq PRN Reason Stop Dose Admin Sodium Chloride 1,000 mls @ 30 mls/hr 01/19/21 07:00 Normal Saline Iv IV CONT .Q24H NARENDRA Labs CBC & Chem 7: 01/19/21 07:21 Labs: Laboratory Results - last 24 hr
--- NOTE | 2021-01-19 09:01 | P.PCNCVR_ITS ---
Cardioversion Cardioversion Date of procedure: 01/19/21 Procedure: Elective electrical cardioversion Pre-op diagnosis: Atrial fibrillation Post-op diagnosis: same Indications: Atrial fibrillation Description of procedure: Brief history present illness: Patient is a pleasant 85-year-old female with symptomatic atrial fibrillation refractory medical therapy a with persistent atrial fibrillation despite amiodarone and metoprolol referred for elective electrical cardioversion in attempt to restore sinus rhythm. Procedure in detail: After verbal and written informed consent was obtained the patient risks, benefits, and alternatives explained in detail the patient agreed to proceed with the plan of care as outlined above. Patient was evaluated at bedside in the [facility] room. On examination, neck was supple with normal range of motion, no restrictions to opening of the oral cavity, jaw angle and posterior hypopharynx was clear. Lungs were clear to auscultation. Patient was placed in appropriate 30 to 45 degree angle in a supine position. Patient was monitored throughout the study with telemetry, oxygen saturation, end-tidal CO2 monitoring, blood pressure, heart rate, and respirations. Anterior and posterior defibrillator pads placed in the appropriate positions. After confirmation of adequate sedation electrical cardioversion was carried out without complication. Patient tolerated the procedure well without difficulty. Sedation: Moderate Sedation/Anesthesia administration: Patient denied previous intolerance or complications with anesthesia/sedation. Please see sedation note for documentation of the pre-procedure physical examination. A total of 2mg intravenous Versed and a total of 50mcg intravenous Fentanyl was utilized for moderate sedation. Sedation start time was 0909 and end time was 0913 for a total of 4 minutes [id number] intra-procedure time. Sedation was administered by a qualified observer Suzie Harp RN under my supervision with intra-procedure [id number] observation and management throughout the entirety of the procedure. There were no other issues or complications and patient tolerated the procedure well and sedation protocol well and I was present for the entirety. Findings: Elective electrical cardioversion: After confirmation of adequate sedation and persistence of atrial fibrillation, 200 joules synched biphasic energy x1 was delivered with immediate religious of sinus rhythm. Twelve lead EKG was obtained postprocedure confirming sinus rhythm. Complications: None Recommendations: Continue systemic anticoagulation with Eliquis 5 mg q.12 hours without interruption particularly over the next 30 days due to elevated embolic stroke risk post cardioversion. Continue amiodarone 200 mg daily and metoprolol tartrate 25 mg twice daily. Twelve lead EKG in the office in 1 week.
[2021-01-19 09:12] VITALS: BP 133/75; PULSE 75; RESP 19; O2SAT 98
[2021-01-19 09:27] VITALS: BP 119/69; PULSE 72; RESP 19; O2SAT 99
[2021-01-19 09:45] VITALS: BP 110/65; PULSE 91; RESP 19; O2SAT 99
--- NOTE | 2021-01-19 10:16 | SUR.PHASEII ---
iv d/c tip intact. patient education give to patient, written instructions given to patient. she verbalizes understanding and all questions and concerns addressed. patient ambulates around room with steady gait to get dresses. is getting eliquis samples and making a 4 week f/u in office while patient is changing. patient transferred via wc to front of hospital to personal vehicle
== END 2021-01-19 10:18 | disposition home or self-care (01) ==
PROVIDERS: PCP Family Medicine; Visit Provider Internal Medicine Cardiovascular Disease
PROC: 5A2204Z Restoration of Cardiac Rhythm, Single (ICD-10-PCS; principal; 2021-01-19 08:30)
DX: I48.19 Other persistent atrial fibrillation (principal); R06.02 Shortness of breath; Z79.01 Long term (current) use of anticoagulants; I70.0 Atherosclerosis of aorta; H81.10 Benign paroxysmal vertigo, unspecified ear; I10 Essential (primary) hypertension; M48.062 Spinal stenosis, lumbar region with neurogenic claudication; I44.0 Atrioventricular block, first degree
CPT/HCPCS: 36415; 80048; 83735; 92960; J2250; J3010; J7040

== ENCOUNTER → 2021-04-29 12:07 | Outpatient (CLI) | payer OTHER, SELFPAY ==
--- NOTE | ~2021-04-29 | XR_ITS ---
XR chest 2V 04/29/2021 13:38 Indication: Dyspnea with exertion Procedure: 2 view chest Comparison: Comparison to multiple prior studies sequentially, with oldest reviewed study dated 04/2018. Findings: Heart size normal. No focal air space disease, pulmonary edema, pleural effusion or suspect ed pneumothorax. Impression: 1: No acute cardiopulmonary disease. Reviewed, dictated and finalized at location A. FLOOR PERSON Impression: 1: No acute cardiopulmonary disease.
== END ==
PROVIDERS: PCP Family Medicine; Visit Provider Internal Medicine Cardiovascular Disease
DX: R06.09 Other forms of dyspnea (principal)
CPT/HCPCS: 71046

== ENCOUNTER 2021-05-18 08:41 | Outpatient (CLI) | payer OTHER, SELFPAY ==
--- NOTE | 2021-05-18 14:02 | WPDPFTINT ---
PFT Procedure Performed PFT Procedure Performed Plethysmography (Lung Vol) Diffusing Cap (DLCO) Flow Vol Loop Spirometry w/o Bronchodil PFT Interpretation This is a pulmonary function test with spirometry, plethysmography and diffusing capacity. The test was performed and results interpreted in accordance with the 2019 and 2005 ATS/ERS Task Force guidelines respectively using the Global Lung Function Initiative-2012 reference equations. Patient demonstrated good effort and cooperation. Reproducibility criteria were met. The quality of the spirometry maneuver was Grade B. Of note the patient was very short of breath and only 1 acceptable plethysmography value was obtained. Findings: Spirometry: There is decreased maximal expiratory airflow at low lung volumes with concave expiratory flow tracing. Contour the inspiratory flow tracing is truncated. The FVC is 1.45 L, 46% predicted. The FEV1 is 0.94 L, 40% predicted. The FEV1: FVC ratio 65%. Plethysmography: The total lung capacity is 3.83 L, 63% predicted. The functional residual capacity is 2.71 L, 84% predicted. The residual volume is 2.38 L, 98% predicted. Diffusion capacity: The diffusion capacity unadjusted for hemoglobin and carboxyhemoglobin is 9.2, 43% predicted. The diffusing capacity adjusted for alveolar volume is 3.86, 101% predicted. Impression: There is a combined obstructive and restrictive ventilatory abnormality. There are no guidelines to assign the severity of obstruction and restriction with a combined abnormality. In my opinion, given the mildly concave expiratory flow tracing and mildly decreased FEV1: FVC ratio and moderate restrictive abnormality I would state there is a mild obstructive abnormality and a moderate restrictive abnormality resulting in a severely decreased FEV1. The diffusing capacity unadjusted for hemoglobin is moderately decreased and normalizes when adjusted for alveolar volume. There are no prior studies for comparison
== END 2021-05-18 08:42 | disposition home or self-care (01) ==
PROVIDERS: PCP Family Medicine; Visit Provider Internal Medicine Cardiovascular Disease
DX: R06.00 Dyspnea, unspecified (principal); R53.82 Chronic fatigue, unspecified; Z79.899 Other long term (current) drug therapy; Z91.89 Other specified personal risk factors, not elsewhere classified; R94.2 Abnormal results of pulmonary function studies
CPT/HCPCS: 94375; 94726; 94729

== ENCOUNTER 2021-09-16 08:05 | Outpatient (CLI) | payer OTHER, SELFPAY ==
--- NOTE | 2021-09-17 00:46 | WPDSIXMINUTE ---
Six Minute Walk Procedure Procedure Performed Pulmonary Stress Test (6 min walk) Six Minute Walk Six Minute Walk: DATE OF SERVICE: 09/16/2021 ORDERING: Dr. Diop REASON FOR TESTING: Shortness of breath SIX MINUTE WALK This test was conducted per ATS guidelines. Initial saturation was 96% and pulse was 62. Blood pressure 161/77. The patient used a wheeled walker during testing, she was breathing room air. Lowest saturation was 87%, and she stayed below 90% for half a minute. Saturation increased into the low 90s, and returned to baseline during recovery. Highest pulse was 90. Distance walked was 300 ft/91 m. She did not stop to rest. IMPRESSION: Mild desaturation without sustained hypoxemia. Supplemental oxygen is not indicated with exertion.
--- NOTE | 2021-09-17 00:52 | WPDPFTINT ---
PFT Procedure Performed PFT Procedure Performed Spirometry with Pre/Post Bronchodilator Plethysmography (Lung Vol) Diffusing Cap (DLCO) Flow Vol Loop PFT Interpretation DOS: 09/16/2021 REQUESTING: Dr. Diop REASON FOR TESTING: Shortness of breath PULMONARY FUNCTION TESTS Results are reliable and reproducible. BMI is 33.7. Spirometry: Pre bronchodilator FEV1 is 59%, 1.13 L, below normal. FVC is 63%, 1.61 L, below normal. FEV1/FVC is 70%, within normal limits. VRA59-59% is 43% predicted, 0.65 L, at the lowest end of the normal range. After bronchodilator administration, there was a 6% increase in FEV1, 63% predicted, not a statistically significant increase. There is a 3% increase in FVC, 65% predicted, still below the normal range. The MVW02-53 increased by 18%, remains in the normal range. Lung volumes: Total lung capacity is 78% predicted, 4.05, mildly decreased. FRC is 80% predicted, 2.4 L, normal. ERV is 12% predicted, 0.11 L, severely reduced. Residual volume 92% predicted, 2.29 L, within the normal range. RV/TLC is 57%, within the normal range. Airway resistance 200, elevated. Diffusion: DLCO 59% predicted, this is mildly decreased. DLCO/VA is 107% predicted, normal. Flow volume loop: There is scooping of the expiratory limb. IMPRESSION: There is a mixed restrictive and obstructive ventilatory impairment. The restrictive impairment is mild, and the obstructive impairment is difficult to assess in the setting with restriction. There is coving of the expiratory limb and borderline decreased FEV1:FVC. The slow vital capacity is 69% which is higher than the forced vital capacity which indicates dynamic airway obstruction. There is a mild diffusion impairment. Compared to a prior study on 05/18/2021, the values are improved. The prior FEV1 was 40% predicted, 0.94 L and now the pre bronchodilator FEV1 is 59%, 1.13 L. The prior FVC was 46% and now 63%. The prior total lung capacity was 63% and now is 78%, significantly improved. The prior DLCO was 43% and now it is 59%, close to normal. Kelli Taylor MD
== END 2021-09-16 08:06 | disposition home or self-care (01) ==
PROVIDERS: PCP Family Medicine; Visit Provider Internal Medicine Pulmonary Disease
DX: R06.02 Shortness of breath (principal); Z87.891 Personal history of nicotine dependence; R94.2 Abnormal results of pulmonary function studies
CPT/HCPCS: 94060; 94618; 94726; 94729

== ENCOUNTER → 2022-03-08 09:39 | Outpatient (CLI) | payer OTHER, SELFPAY ==
--- NOTE | ~2022-03-08 | XR_ITS ---
EXAMINATION: XR abdomen/kub 1V INDICATION: Left flank pain TECHNIQUE: Supine views of the abdomen were obtained on 2 radiographs. COMPARISON: CT, 10/09/2015 FINDINGS: No urolithiasis is identified. The bowel gas pattern is normal. There is mild osteoarthriti s of the hips. IMPRESSION: 1. No urolithiasis identified. Reviewed, dictated and finalized at location B. SE TRIMMER
--- NOTE | ~2022-03-08 | XR_ITS ---
EXAMINATION: XR lumbar spine 2-3V DATE: 03/08/2022 10:58 INDICATION: Low back pain TECHNIQUE: Anteroposterior and lateral views of the lumbar spine, and cone-down lateral view of the l umbosacral junction were obtained. COMPARISON: CT, 10/09/2015 FINDINGS: There are 2 mm of anterolisthesis of L4 on L5. There is severe loss of intervertebral disc space height at L4-5 and L5-S1. There is mild loss of intervertebral disc space height at L1-2 and L2 -3. The vertebral body heights are maintained. Small degenerative osteophytes project from the anteri or endplates of multiple vertebral bodies. There is moderate to severe facet joint osteoarthritis of the lower lumbar spine. IMPRESSION: 1. Severe lumbar spondylosis without acute findings or significant interval change. Reviewed, dictated and finalized at location B. [employer] NARCOTICS [employer]ICE IMPRESSION: 1. Severe lumbar spondylosis without acute findings or significant interval yoko e.
== END ==
PROVIDERS: PCP Family Medicine; Visit Provider Nurse Practitioner Gerontology
DX: R30.0 Dysuria (principal); M47.896 Other spondylosis, lumbar region
CPT/HCPCS: 72100; 74018

== ENCOUNTER → 2022-04-05 10:51 | Outpatient (CLI) | payer OTHER, SELFPAY ==
--- NOTE | ~2022-04-05 | XR_ITS ---
Clinical Indication: Long-term drug therapy PA and lateral views of the chest: Comparison: 04/29/2021 Findings: The lungs are clear, without evidence of focal consolidation or pleural effusion. Cardiome diastinal silhouette is stable. Bones and soft tissues are unremarkable. Impression: Clear lungs. Reviewed, dictated and finalized at location . ESSOR OF NURSING Impression: Clear lungs.
== END ==
PROVIDERS: PCP Family Medicine; Visit Provider Internal Medicine Cardiovascular Disease
DX: Z91.89 Other specified personal risk factors, not elsewhere classified (principal); Z79.899 Other long term (current) drug therapy; J96.11 Chronic respiratory failure with hypoxia
CPT/HCPCS: 71046

== ENCOUNTER 2022-11-28 15:09 | Emergency (ER) | payer OTHER, SELFPAY ==
--- NOTE | ~2022-11-28 | XR_ITS ---
XR chest 2V DATE: 11/28/2022 15:58 INDICATION: Chest heaviness. History of atrial fibrillation. TECHNIQUE: AP and lateral chest COMPARISON: April 05, 2022 PA and lateral chest FINDINGS: Cardiomegaly. Aortic arch calcification. No pulmonary infiltrate or consolidation, pleural effusion or pulmonary vascular congestion or pneumo thorax is detected. Osteopenia. IMPRESSION: Cardiomegaly, aortic atherosclerosis No active pulmonary disease Reviewed, dictated and finalized at location L.
--- NOTE | 2022-11-28 15:11 | ECG_ITS ---
Measurements Intervals [place] Rate: 56 P: 34 CA: 253 QRS: 11 QRSD: 90 T: 12 QT: 440 QTc: 426 Interpretive Statements SINUS BRADYCARDIA WITH FIRST DEGREE AV BLOCK LOW QRS VOLTAGE IN PRECORDIAL LEADS [QRS DEFLECTION < 1.0 mV IN CHEST LEADS] COMPARED TO ECG 01/19/2021 09:13:49 SINUS BRADYCARDIA NOW PRESENT Electronically Signed On 11-28-2022 15:53:20 CDT by Anderson Lai M.D.
[2022-11-28 15:16] VITALS: BP 161/87; PULSE 60; RESP 20; TEMP 36.6; O2SAT 95
--- NOTE | 2022-11-28 15:30 | ED.GENADULT ---
HPI - General Adult General Chief complaint: Recheck/Abnormal Lab/Rx <Ellen Patrick PA-C - Last Filed: 11/28/22 18:24> Stated complaint: low hr <YIN Amezquita Last Filed: 11/28/22 18:24> Time Seen by Provider: 11/28/22 15:49 <YIN Amezquita Last Filed: 11/28/22 18:24> Source: patient and old records reviewed <YIN Amezquita Last Filed: 11/28/22 18:24> Mode of arrival: ambulatory <YIN Amezquita Last Filed: 11/28/22 18:24> Limitations: no limitations <YIN Amezquita Last Filed: 11/28/22 18:24> History of Present Illness HPI narrative: Patient is an 87-year-old female who presents to the ED with report of bradycardia. Patient reports she has been feeling weak and fatigued this morning. She thought she may be in A-fib. She does have history of A-fib and is chronically anticoagulated with Eliquis. Also on amiodarone 100 mg daily and metoprolol 25 mg twice daily. She sees Dr. Nixon. She used her home cardia machine this morning and noted that she was bradycardic, but not in afib. She states her heart rate is typically greater than 60, however her heart rate today has been ranging from 45 to 49 bpm. Patient does also report having chest tightness. She states she experiences this frequently, but today was worse than usual. Denies feeling short of breath. Denies feeling dizzy or lightheaded. <YIN Amezquita Last Filed: 11/28/22 18:24> Related Data Home medications: Home Medications Medication Instructions Recorded Confirmed apixaban 5 mg tablet (Eliquis) 5 mg PO BID 01/02/19 11/09/22 losartan 50 mg tablet 50 mg PO DAILY 12/21/20 11/09/22 psyllium husk 3.4 gram/5.4 gram 1 tbsp PO DAILY 12/21/20 11/09/22 oral powder (Metamucil) Adult One Daily Multivitamin 1 tablet PO DAILY 12/30/20 11/09/22 Calcium 600 600 mg BYMOUTH BID 12/30/20 11/09/22 amiodarone 400 mg tablet 100 mg PO DAILY 06/01/21 11/09/22 <Ellen Patrick PA-C - Last Filed: 11/28/22 18:24> Allergies/adverse reactions: Allergies Allergy/AdvReac Type Severity Reaction Status Date / Time levofloxacin Allergy Mild Nausea and Verified 11/28/22 16:04 Vomiting metronidazole Allergy Mild Nausea and Verified 11/28/22 16:04 Vomiting adhesive tape Allergy Unknown BLISTERS Verified 11/28/22 16:04 codeine Allergy Unknown Vomiting Verified 11/28/22 16:04 Iodinated Contrast Media Allergy Unknown Unknown Verified 11/28/22 16:04 Contrast Media Allergy Unknown unknown Uncoded 11/28/22 15:28 <Ellen Patrick PA-C - Last Filed: 11/28/22 18:24> Review of Systems Review of Systems: CONSTITUTIONAL: Reports weakness, fatigue. Denies fever, chills, or sweats. CARDIOVASCULAR: See HPI. RESPIRATORY: Denies cough or dyspnea. GASTROINTESTINAL: Denies abdominal pain, nausea, vomiting. GENITOURINARY: Denies dysuria or hematuria. SKIN: Denies rash or itching. MUSCULOSKELETAL: Denies back pain, joint pain, or myalgia. NEUROLOGIC: Denies dizziness, lightheadedness, headache, numbness, or weakness. <Ellen Patrick PA-C - Last Filed: 11/28/22 18:24> All systems reviewed & are unremarkable except as noted in HPI and below <Ellen Patrick PA-C - Last Filed: 11/28/22 18:24> [facility] Past Medical History Medical History: Medical History Allergic rhinitis, unspecified Atherosclerosis of aorta Benign paroxysmal vertigo, bilateral Bronchitis Chronic atrial fibrillation Chronic sinusitis of both maxillary sinuses Closed displaced fracture of head of right radius with routine healing Closed nondisplaced fracture of lateral malleolus of right fibula Current use of custodial anticoagulation Diverticulosis large intestine w/o perforation or abscess w/bleeding Essential (primary) hypertension PAF (paroxysmal atrial fibrillation) Pneumonia and influenza Pos
[2022-11-28] MEDS: ASPIRIN 81 MG CHEWABLE TABLET 324 MG PO (15:35)
[2022-11-28 15:45] LABS: Basophils Percent Auto 0.6 % (0.2-1.2); Eosinophils Absolute Auto 0.2 K/mm3 (0-0.3); Eosinophils Percent Auto 2.6 % (0-4.4); Hematocrit 37.8 % (37.0-47.0); Hemoglobin 12.1 g/dL (12.0-15.0); Immature Granulocyte Absolute 0.02 K/mm3 (0.00-0.031); Immature Granulocyte Percent A 0.3 % (0-0.5); Lymphocytes Absolute Auto 1.98 K/mm3 (0.9-3.2); Lymphocytes Percent Auto 28.9 % (18.3-44.2); Mean Corpuscular Hemoglobin 29.3 pg (26-34); Mean Corpuscular Volume 91.5 fl (80-100); Mean Platelet Volume 10.6 fl (7.4-10.4); Monocytes Absolute Auto 0.6 K/mm3 (0.1-0.6); Monocytes Percent Auto 8.8 % (2.6-8.5); Neutrophils Percent Auto 58.8 % (45.5-73.1); Platelet Count Result 239 k/mm3 (150-375); Red Blood Count 4.13 M/mm3 (4.2-5.4); Red Cell Distribution Width 13.3 % (11.5-14.5); White Blood Count 6.8 K/mm3 (4.5-10.0)
[2022-11-28 15:54] LABS: Alanine Aminotransferase 18 U/L (6-35); Albumin Level 4.3 g/dL (3.5-5.1); Alkaline Phosphatase 71 U/L (38-126); Anion Gap 7 mmol/L (8-16); Aspartate Amino Transferase 28 U/L (14-36); Bilirubin,Total 0.7 mg/dL (0.2-1.3); Blood Urea Nitrogen 19 mg/dL (7-17); Calcium 8.7 mg/dL (8.4-10.2); Carbon Dioxide 30 mmol/L (22-30); Chloride 98 mmol/L (98-107); Estimated CRCL calculation 48 ml/min; Estimated Glomerular Filt Rate > 60; Glucose 119 mg/dL (65-110); Lipase 91 U/L (23-300); Potassium 4.2 mmol/L (3.4-5.0); Sodium 135 mmol/L (137-145)
[2022-11-28 15:55] LABS: INR 1.2; Prothrombin Time 15.7 Seconds (11.1-14.7)
[2022-11-28 16:06] LABS: Troponin I < 0.012 ng/mL (0.000-0.034)
[2022-11-28 16:33] VITALS: BP 149/64; PULSE 53; RESP 18; O2SAT 96
== END 2022-11-28 16:34 | disposition home or self-care (01) ==
PROVIDERS: Physician Assistant; Emergency Provider Emergency Medicine; PCP Family Medicine
DX: R53.83 Other fatigue (principal); I48.0 Paroxysmal atrial fibrillation; I70.0 Atherosclerosis of aorta; J32.0 Chronic maxillary sinusitis; I10 Essential (primary) hypertension; Z87.01 Personal history of pneumonia (recurrent); Z87.891 Personal history of nicotine dependence; Z79.01 Long term (current) use of anticoagulants; R00.1 Bradycardia, unspecified; I44.0 Atrioventricular block, first degree
CPT/HCPCS: 36415; 71046; 80053; 83690; 84484; 85025; 85610; 85730; 93005; 99284; A9270

== ENCOUNTER 2022-12-31 12:55 | Emergency (ER) | payer OTHER, SELFPAY ==
--- NOTE | ~2022-12-31 | CT_ITS ---
EXAMINATION: CT brain wo con INDICATION: Head injury COMPARISON: 08/30/2005 TECHNIQUE: Standard unenhanced head CT. The dose-length product (DLP) was 605.33 mGy-cm. The mA was a djusted according to patient size. Iterative reconstruction technique was employed. FINDINGS: No acute intraparenchymal hemorrhage. No evidence of mass lesion. No evidence of acute infa rction. There is mild periventricular and subcortical hypodensity probably related to small vessel is chemic disease. There is mild prominence of the sulci and ventricles related to cerebral atrophy. Int racranial calcified cerebral atherosclerosis is noted. No extra-axial collections. No mass effect or midline shift. Changes in the globes are likely from ocular lens surgery. There is left parietooccipi nadira scalp soft tissue swelling. The visualized sinuses and mastoid air cells are well aerated. IMPRESSION: 1. Scalp soft tissue swelling without acute intracranial abnormality. 2. Age related findings. Reviewed, dictated and finalized at location F. R [employer]
--- NOTE | ~2022-12-31 | CT_ITS ---
EXAMINATION: CT cervical spine wo con DATE: 12/31/2022 13:43 INDICATION: Head injury TECHNIQUE: Computed tomography (CT) of the cervical spine was performed without intravenous contrast. The dose-length product (DLP) was 186.31 mGy-cm. Automated exposure control and iterative reconstruc tion technique were employed. COMPARISON: None FINDINGS: There are 2 mm of anterolisthesis of C3 on C4 and C6 on C7. The vertebral body heights are maintained. There is moderate loss of intervertebral disc space height at C2-C3, C4-5, C5-C6, and C6- 7. There is multilevel severe facet and uncovertebral joint osteoarthritis. No fracture is identified . The odontoid process is intact. Left parieto-occipital scalp soft tissue swelling is noted. IMPRESSION: 1. Moderate cervical spondylosis without acute findings. Reviewed, dictated and finalized at location F. [facility]
[2022-12-31 13:06] VITALS: BP 160/67; PULSE 81; RESP 16; TEMP 36.3; O2SAT 96
--- NOTE | 2022-12-31 16:06 | ED.HEATRA ---
HPI - Head Injury General Chief complaint: Head Injury Stated complaint: fall and head injury, on blood thinners Time Seen by Provider: 12/31/22 15:35 Source: patient and RN notes reviewed Mode of arrival: ambulatory Limitations: no limitations History of Present Illness HPI Narrative: This is an 87 year old female who presents for evaluation of head injury. PAtient states she was trying to sit down when the chair slid from under her. This caused her to hit her head on the chair. She denies LOC, headache, dizziness, nausea or vomiting. She reports having a hematoma and she takes Eliquis for atrial fibrillation. She reports mild left shoulder pain to triage. She denies numbness or tingling. Related Data Home Medications Medication Instructions Recorded Confirmed apixaban 5 mg tablet (Eliquis) 5 mg PO BID 01/02/19 11/09/22 losartan 50 mg tablet 50 mg PO DAILY 12/21/20 11/09/22 psyllium husk 3.4 gram/5.4 gram 1 tbsp PO DAILY 12/21/20 11/09/22 oral powder (Metamucil) Adult One Daily Multivitamin 1 tablet PO DAILY 12/30/20 11/09/22 Calcium 600 600 mg BYMOUTH BID 12/30/20 11/09/22 amiodarone 400 mg tablet 100 mg PO DAILY 06/01/21 11/09/22 Allergies Allergy/AdvReac Type Severity Reaction Status Date / Time levofloxacin Allergy Mild Nausea and Verified 12/31/22 13:07 Vomiting metronidazole Allergy Mild Nausea and Verified 12/31/22 13:07 Vomiting adhesive tape Allergy Unknown BLISTERS Verified 12/31/22 13:07 codeine Allergy Unknown Vomiting Verified 12/31/22 13:07 Iodinated Contrast Media Allergy Unknown Unknown Verified 12/31/22 13:07 Contrast Media Allergy Unknown unknown Uncoded 11/28/22 15:28 Review of Systems Review of Systems: All systems reviewed & are unremarkable except as noted in HPI and below PMFSH Past Medical History Medical History Allergic rhinitis, unspecified Atherosclerosis of aorta Benign paroxysmal vertigo, bilateral Bronchitis Chronic atrial fibrillation Chronic sinusitis of both maxillary sinuses Closed displaced fracture of head of right radius with routine healing Closed nondisplaced fracture of lateral malleolus of right fibula Current use of [facility] anticoagulation Diverticulosis large intestine w/o perforation or abscess w/bleeding Essential (primary) hypertension PAF (paroxysmal atrial fibrillation) Pneumonia and influenza Postmenopausal Sciatic nerve pain Spinal stenosis of lumbar region with neurogenic claudication Family History Family History Mother Patient's mother is Family history of malignant neoplasm Sibling Asthma Other Family history of arthritis Social History Social History Social History: Smoking status: Former smoker Second hand tobacco smoke exposure: No Smoking end date: 02/26/69 Alcohol intake: never Substance use: never Substance use type: does not use Lack of Transportation: No Lack of Food: Never True Current Housing: I Have Housing Concerned About Future Housing: No Difficulty Paying Gas/Electric Bills: No Difficulty Paying for Meds: No Currently Unemployed: YES Education: Decline to Answer Living arrangements: with family Occupation/Education: retired Gender identity (if verbalized by the patient): Female Sexual Orientation (if Verbalized by the Patient): Straight or Heterosexual Spiritual care concerns: No Exam Const: General: no acute distress and alert Nutritional Appearance: well nourished Orientation/consciousness: patient oriented x3 Limitations: no limitations HENMT: Head: hematoma left occipital Ears: external ears normal Mouth: Yes Normal oral and palatal mucosa present, Yes lip normal and Yes moist mucous membranes Throat: posterior oropharynx normal Eyes: Pupils: Equal, round and reactive pupils
[2022-12-31 16:43] VITALS: BP 150/60; PULSE 81; RESP 16; O2SAT 96
== END 2022-12-31 16:46 | disposition home or self-care (01) ==
PROVIDERS: Emergency Provider General Practice; PCP Family Medicine
DX: S00.03XA Contusion of scalp, initial encounter (principal); I48.20 Chronic atrial fibrillation, unspecified; I10 Essential (primary) hypertension; Z87.891 Personal history of nicotine dependence; Z79.01 Long term (current) use of anticoagulants; W07.XXXA Fall from chair, initial encounter
CPT/HCPCS: 70450; 72125; 99284

== ENCOUNTER 2023-06-10 11:57 | Emergency (ER) | payer OTHER, SELFPAY ==
--- NOTE | ~2023-06-10 | XR_ITS ---
EXAMINATION: XR chest 2V DATE: 06/10/2023 12:32 INDICATION: Chest pain radiating to the left TECHNIQUE: frontal and lateral views of the chest were obtained. COMPARISON: Chest radiograph dated 11/28/2022 FINDINGS: The lungs are clear with no focal airspace opacities, pulmonary edema, pleural effusion or pneumothor ax. The cardiomediastinal silhouette is normal. Mild to moderate degenerative skeletal changes in the spine and at the bilateral shoulders. Suggestion of prior distal right clavicle resection. IMPRESSION: 1. No acute cardiopulmonary disease. Reviewed, dictated and finalized at location A.
[2023-06-10 12:01] VITALS: BP 156/72; PULSE 81; RESP 20; TEMP 36.6; O2SAT 98
--- NOTE | 2023-06-10 12:03 | ED.CHESTPAIN ---
HPI - Chest Pain General Chief Complaint: Chest Pain Stated Complaint: cp Time Seen by Provider: 06/10/23 12:02 History of Present Illness HPI narrative: Patient is an 87 year old female with history of paroxysmal a.fib, vertigo, HTN, here with multiple symptoms including chest pain, shortness of breath, fatigue, cough. She notes symptoms began yesterday. She notes chest pain is is left sided, radiates into her shoulder blade. She describes it as a heaviness. She notes some associated dizziness however she is unsure if this is new or due to her history of vertigo. She did have an episode of diarrhea about a week ago and again this morning. The diarrhea had some prodromal abdominal cramping that is currently resolved. She denies fever or chills, no sick contacts. She does have a history of paroxysmal AFib. She had a cardioversion in the past by Dr. Nixon. Related Data Home Medications Medication Instructions Recorded Confirmed apixaban 5 mg tablet (Eliquis) 5 mg PO BID 01/02/19 04/27/23 losartan 50 mg tablet 50 mg PO DAILY 12/21/20 04/27/23 psyllium husk 3.4 gram/5.4 gram 1 tbsp PO DAILY 12/21/20 04/27/23 oral powder (Metamucil) Adult One Daily Multivitamin 1 tablet PO DAILY 12/30/20 04/27/23 Calcium 600 600 mg BYMOUTH BID 12/30/20 04/27/23 amiodarone 400 mg tablet 100 mg PO DAILY 06/01/21 04/27/23 Allergies Allergy/AdvReac Type Severity Reaction Status Date / Time levofloxacin Allergy Mild Nausea and Verified 06/10/23 12:11 Vomiting metronidazole Allergy Mild Nausea and Verified 06/10/23 12:11 Vomiting adhesive tape Allergy Unknown BLISTERS Verified 06/10/23 12:11 codeine Allergy Unknown Vomiting Verified 06/10/23 12:11 Iodinated Contrast Media Allergy Unknown Unknown Verified 06/10/23 12:11 Contrast Media Allergy Unknown unknown Uncoded 06/10/23 12:11 Review of Systems Review of Systems: All systems reviewed & are unremarkable except as noted in HPI and below PMFSH Past Medical History Medical History Allergic rhinitis, unspecified Atherosclerosis of aorta Benign paroxysmal vertigo, bilateral Bronchitis Chronic atrial fibrillation Chronic sinusitis of both maxillary sinuses Closed displaced fracture of head of right radius with routine healing Closed nondisplaced fracture of lateral malleolus of right fibula Current use of fpc anticoagulation Diverticulosis large intestine w/o perforation or abscess w/bleeding Essential (primary) hypertension PAF (paroxysmal atrial fibrillation) Pneumonia and influenza Postmenopausal Sciatic nerve pain Spinal stenosis of lumbar region with neurogenic claudication Family History Family History Mother Patient's mother is Family history of malignant neoplasm Sibling Asthma Other Family history of arthritis Social History Social History Social History: Smoking status: Former smoker Second hand tobacco smoke exposure: No Smoking end date: 02/26/69 Alcohol intake: never Substance use: never Substance use type: does not use Lack of Transportation: No Lack of Food: Never True Current Housing: I Have Housing Concerned About Future Housing: No Difficulty Paying Gas/Electric Bills: No Difficulty Paying for Meds: No Currently Unemployed: YES Education: Decline to Answer Living arrangements: with family Occupation/Education: retired Gender identity (if verbalized by the patient): Female Sexual Orientation (if Verbalized by the Patient): Straight or Heterosexual Spiritual care concerns: No Exam Narrative: GENERAL: Well-appearing, well-nourished, and in no acute distress. HEAD: Normocephalic, atraumatic. EYES: PERRLA and EOMI. ENT: Nares clear. Mucous membranes moist. NECK: Supple. CHEST: Clear to auscultation. No respiratory distress. HEART: R
[2023-06-10 12:09] VITALS: PULSE 78; O2SAT 98
[2023-06-10 12:22] LABS: Basophils Percent Auto 0.5 % (0.2-1.2); Eosinophils Absolute Auto 0.1 K/mm3 (0-0.3); Eosinophils Percent Auto 1.4 % (0-4.4); Hemoglobin 13.6 g/dL (12.0-15.0); Immature Granulocyte Absolute 0.01 K/mm3 (0.00-0.031); Immature Granulocyte Percent A 0.2 % (0-0.5); Lymphocytes Absolute Auto 2.22 K/mm3 (0.9-3.2); Lymphocytes Percent Auto 35.2 % (18.3-44.2); Mean Corpuscular HGB Conc 33.2 g/dl (32-36); Mean Corpuscular Volume 90.5 fl (80-100); Mean Platelet Volume 10.5 fl (7.4-10.4); Monocytes Absolute Auto 0.5 K/mm3 (0.1-0.6); Monocytes Percent Auto 7.6 % (2.6-8.5); Neutrophils Absolute Auto 3.5 K/mm3 (1.3-6.7); Neutrophils Percent Auto 55.1 % (45.5-73.1); Platelet Count Result 270 k/mm3 (150-375); Red Blood Count 4.53 M/mm3 (4.2-5.4); White Blood Count 6.3 K/mm3 (4.5-10.0)
[2023-06-10 12:31] LABS: Alanine Aminotransferase 21 U/L (6-35); Albumin Level 4.8 g/dL (3.5-5.1); Alkaline Phosphatase 75 U/L (38-126); Anion Gap 8 mmol/L (4-12); Aspartate Amino Transferase 30 U/L (14-36); Bilirubin,Total 0.9 mg/dL (0.2-1.3); Blood Urea Nitrogen 15 mg/dL (7-17); Calcium 9.7 mg/dL (8.4-10.2); Carbon Dioxide 28 mmol/L (22-30); Chloride 99 mmol/L (98-107); Estimated CRCL calculation 56 ml/min; Estimated Glomerular Filt Rate > 60; Glucose 114 mg/dL (65-110); Lipase 93 U/L (23-300); Potassium 3.9 mmol/L (3.4-5.0); Sodium 135 mmol/L (137-145)
[2023-06-10 12:32] LABS: INR 1.2; Prothrombin Time 15.4 Seconds (11.1-14.7)
[2023-06-10 12:33] LABS: Partial Thromboplastin Time 39.4 Seconds (22.3-36.8)
[2023-06-10 12:42] LABS: NT Pro B Type Natriuretic Pept 118 pg/mL (19.9-100); Troponin I < 0.012 ng/mL (0.000-0.034)
[2023-06-10 12:59] LABS: Influenza A QL RT-PCR Negative (Negative); Influenza B QL RT-PCR Negative (Negative); RSV RNA, RT-PCR Negative (Negative); SARS-CoV-2 RNA PCR Negative (Negative)
[2023-06-10 13:28] LABS: Appearance Urine Clear (Clear); Bacteria Urine 4+ /hpf; Bilirubin Urine Negative (Negative); Blood Urine Negative (Negative); Color Urine Yellow (Yellow); Glucose Urine UA Negative (Negative); Ketones Urine Negative (Negative); Leukocyte Esterase Ur 1+ LEU/UL (Negative); Nitrate Urine Negative (Negative); Non Pathogenic Casts 0-2; Protein Urine Negative (Negative); RBC Urine 0-2 /hpf (0-2); Specific Grav Ur 1.012 (1.001-1.035); Squamous Epithelial Cell Urine Occasional /hpf (Few); pH Urine 6.5 (5.0-9.0)
[2023-06-10 13:29] LABS: Add Urine Microscopic? YES
[2023-06-10 14:06] VITALS: BP 131/68; PULSE 69; RESP 20; O2SAT 96
--- NOTE | 2023-06-10 15:04 | ECG_ITS ---
SEE SCANNED COPY FOR CONFIRMED REPORT MTDD
[2023-06-10 15:49] LABS: Troponin I < 0.012 ng/mL (0.000-0.034)
[2023-06-10 17:10] VITALS: BP 123/60; PULSE 68; RESP 20; O2SAT 92
== END 2023-06-10 17:12 | disposition home or self-care (01) ==
PROVIDERS: Emergency Provider Student in an Organized Health Care Education/Training Program; PCP Family Medicine
DX: N39.0 Urinary tract infection, site not specified (principal); R07.89 Other chest pain; R42 Dizziness and giddiness; Z20.822 Contact with and (suspected) exposure to COVID-19; I48.0 Paroxysmal atrial fibrillation; I10 Essential (primary) hypertension; I70.0 Atherosclerosis of aorta; J32.0 Chronic maxillary sinusitis; Z87.01 Personal history of pneumonia (recurrent); Z87.891 Personal history of nicotine dependence; Z79.01 Long term (current) use of anticoagulants; I44.0 Atrioventricular block, first degree
CPT/HCPCS: 36415; 71046; 80053; 81001; 83690; 83880; 84484; 85025; 85610; 85730; 87077; 87086; 87088; 87186; 87637; 93005; 99284

== ENCOUNTER 2023-07-18 08:30 | Outpatient (CLI) | payer OTHER, SELFPAY ==
--- NOTE | ~2023-07-18 | NM_ITS ---
EXAMINATION: NM marly stress w perfusion DATE: 07/18/2023 13:22 INDICATION: Dyspnea unspecified TECHNIQUE: Rest images were obtained following intravenous administration of 11.22 mCi Tc99m tetrofos min (Myoview). The patient was infused intravenously with Lexiscan (Regadenoson). Then, 34.5 mCi Tc99 m tetrofosmin (Myoview) was administered intravenously, and stress images were obtained. Data was rec onstructed into short axis and horizontal and vertical long axis SPECT images. Gated SPECT images wer e also obtained. COMPARISON: None. FINDINGS: There is no definite reversible or fixed perfusion abnormality to suggest ischemia or infar ction. There is normal left ventricular chamber size, wall motion and ejection fraction. Left ventr icular ejection fraction measures >70%. IMPRESSION: 1. Normal myocardial perfusion at rest and during stress. 2. Left ventricular ejection fraction measuring >70%. Reviewed, dictated and finalized at location A.
--- NOTE | 2023-07-18 09:35 | ECHO_ITS ---
Patient Info Name: Pearl Goodman Age: 87 years : 1935 Gender: Female Ht: 65 in Wt: 190 lbs BSA: 2.02 m2 HR: 76 bpm BP: 148 / 81 mmHg Technical Quality: Fair Exam Date: 07/18/2023 8:43 AM Exam Location: Echo Lab Patient Status: Outpatient Admit Date: 07/18/2023 Staff Ordering Physician: Ricardo Barreto DO Quality System Manager: Ozzy Cruz RDCS Attending Provider: Ricardo Barreto DO Referring Physician: Estevan WEAVER; Exam Type: CA echo doppler color flow Study Info Indications I48.0 - Paroxysmal atrial fibrillation Complete two-dimensional, color flow and Doppler transthoracic echocardiogram is performed. Summary 1. Complete two-dimensional, color flow and Doppler transthoracic echocardiogram is performed. 2. Left ventricular chamber dimension is normal. 3. Ventricular septum is sigmoid shaped. No LVOT obstruction. 4. Left ventricular systolic function is normal, estimated at 60-65%. 5. There is mild concentric increased left ventricular wall thickness. 6. The left ventricular diastolic function is grade I diastolic dysfunction. 7. E/e' 11 is mildly elevated. 8. Left atrial chamber dimension is mildly enlarged. 9. There is moderate aortic valve sclerosis. 10. There is mild aortic valve stenosis with a peak velocity of 245 cm/s, mean gradient of 11 mmHg, and aortic valve area of 1.8 cm2. 11. The mitral valve has moderately calcified annulus. 12. There is mild tricuspid valve regurgitation. 13. Mild pulmonary hypertension, estimated pulmonary arterial systolic pressure is 40 mmHg. Left Ventricle E/e' 11 is mildly elevated. Ventricular septum is sigmoid shaped. No LVOT obstruction. Left ventricular chamber dimension is normal. Left ventricular systolic function is normal, estimated at 60-65%. There is mild concentric increased left ventricular wall thickness. The left ventricular diastolic function is grade I diastolic dysfunction. Right Ventricle Right ventricular systolic function is normal and with normal TAPSE 2.5 cm. Right ventricular chamber dimension is normal. Left Atria Left atrial chamber dimension is mildly enlarged. Right Atria Right atrial chamber dimension is normal. Aortic Valve The aortic valve is trileaflet. There is moderate aortic valve sclerosis. There is mild aortic valve stenosis with a peak velocity of 245 cm/s, mean gradient of 11 mmHg, and aortic valve area of 1.8 cm2. There is no aortic valve regurgitation. Pulmonic Valve There is no pulmonic regurgitation. Mitral Valve The mitral valve has moderately calcified annulus. There is no mitral valve stenosis. There is no mitral valve regurgitation. Tricuspid Valve There is mild tricuspid valve regurgitation. Mild pulmonary hypertension, estimated pulmonary arterial systolic pressure is 40 mmHg. Pericardium/Pleural There is no pericardial effusion. Inferior Vena Cava Normal inferior vena cava with >50% collapse upon inspiration consistent with normal right atrial pressure, 5 mmHg. Aorta The aortic root size at the sinus of Valsalva is normal. Left Ventricular Outflow Tract Name Value Normal LVOT 2D LVOT Diameter 1.9 cm LVOT Doppler LVOT Peak Gradient 8 mmHg LVOT Mean Gradient
--- NOTE | 2023-07-18 10:19 | EST_ITS ---
Patient Info Name: Pearl Goodman Age: 87 years : 1935 Gender: Female Ht: 62 in Wt: 190 lbs BSA: 1.98 m2 HR: 76 bpm BP: 157 / 88 mmHg Heart Rhythm: Sinus Rhythm Exam Date: 07/18/2023 10:41 AM Exam Location: Echo Lab Patient Status: Outpatient Admit Date: 07/18/2023 Staff Ordering Physician: Ricardo Barreto DO Attending Provider: Ricardo Barreto DO Exercise Technologist: Melania Aparicio CT Exercise Physician: Ricardo Barreto DO Exam Type: CA stress marly w NM Study Info Indications R06.09 - Other forms of dyspnea A regadenoson stress test was performed. Summary 1. 1. Negative lexiscan stress test for ischemic ST change by ECG criteria. 2. 2. Baseline hypertension. 3. 3. Nuclear scan to follow and will be reported separately. Please correlate with it. 4. 4. Patient informed of the above results. Protocol: Lexiscan Stress ECG Details Stage: REST Duration (min): 4 min : 24 sec HR (bpm): 74 SBP (mmHg): 157 DBP (mmHg): 88 Stage: REST Duration (min): 12 min : 5 sec HR (bpm): 79 SBP (mmHg): 157 DBP (mmHg): 88 Stage: STAGE 1 Duration (min): 0 min : 59 sec HR (bpm): 97 SBP (mmHg): 157 DBP (mmHg): 63 Stage: RECOVERY Duration (min): 1 min : 0 sec HR (bpm): 102 SBP (mmHg): 157 DBP (mmHg): 63 Stage: RECOVERY Duration (min): 2 min : 0 sec HR (bpm): 100 SBP (mmHg): 157 DBP (mmHg): 63 Stage: RECOVERY Duration (min): 3 min : 0 sec HR (bpm): 96 SBP (mmHg): 157 DBP (mmHg): 63 Stage: RECOVERY Duration (min): 3 min : 33 sec HR (bpm): 94 SBP (mmHg): 157 DBP (mmHg): 63 Rest HR: 79 bpm Peak HR: 102 bpm Rest Sys BP: 157 mmHg Peak Sys BP: 157 mmHg Max Pred HR: 135 bpm % Max Pred HR: 76 % Target HR: 115 bpm Max RPP: 16,014 bpm*mmHg Termination Reason: Completed protocol Cardiac Symptoms: Shortness of breath Total Time: 1 min : 0 sec Rest Pool BP: 88 mmHg Peak Pool BP: 63 mmHg Total Dose: 0.4 mg Resting ECG Sinus rhythm. Stress ECG No ST changes. Arrhythmias None. Report Signatures
== END 2023-07-18 08:31 | disposition home or self-care (01) ==
PROVIDERS: PCP Family Medicine; Visit Provider Internal Medicine Cardiovascular Disease
DX: R06.00 Dyspnea, unspecified (principal); I08.3 Combined rheumatic disorders of mitral, aortic and tricuspid valves
CPT/HCPCS: 78452; 93017; 93306; A9502; J2785

== ENCOUNTER 2024-01-19 12:50 | Emergency (ER) | payer OTHER, SELFPAY ==
[2024-01-19] VITALS (23 sets, daily range): BP systolic 98–167; BP diastolic 43–80; PULSE 62–85; RESP 17–28; TEMP 36.3; O2SAT 93–100
--- NOTE | ~2024-01-19 | XR_ITS ---
XR chest 2V DATE: 01/19/2024 13:55 INDICATION: Cough TECHNIQUE: 2 views COMPARISON: 06/10/2023 AP and lateral chest FINDINGS: Heart size appears within upper normal range. No hilar or mediastinal enlargement. No pulmonary infiltrate or consolidation, pleural effusion or pulmonary vascular congestion or pneumo thorax is detected. Osteopenia. IMPRESSION: No active cardiopulmonary disease Reviewed, dictated and finalized at location A. 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
--- NOTE | 2024-01-19 13:38 | ED_ITS ---
HPI - General Adult General Chief complaint: Upper Respiratory Infection Stated complaint: virus Time Seen by Provider: 01/19/24 13:35 Source: patient and family Mode of arrival: ambulatory Limitations: no limitations History of Present Illness HPI narrative: 88 years old white female came to the ED with her from home by private car complaining of productive cough of yellowish sputum, nasal is due conge stion, postnasal discharge started roughly over 7 days ago, her had similar symptoms. She denies any fever or chills or nausea or vomiting or chest pain or shortness of breath Related Data Home Medications Medication Instructions Recorded Confirmed Adult One Daily Multivitamin 1 tablet PO DAILY 12/30/20 01/11/24 Calcium 600 600 mg BYMOUTH BID 12/30/20 01/11/24 psyllium husk 3.4 gram/5.4 gram 1 tbsp PO BID 06/21/23 01/11/24 oral powder (Metamucil) Allergies Allergy/AdvReac Type Severity Reaction Status Date / Time levofloxacin Allergy Mild Nausea and Verified 01/19/24 12:51 Vomiting metronidazole Allergy Mild Nausea and Verified 01/19/24 12:51 Vomiting adhesive tape Allergy Unknown BLISTERS Verified 01/19/24 12:51 codeine Allergy Unknown Vomiting Verified 01/19/24 12:51 Iodinated Contrast Media Allergy Unknown Unknown Verified 01/19/24 12:51 Contrast Media Allergy Unknown unknown Uncoded 01/19/24 12:51 Review of Systems Review of Systems: All systems reviewed & are unremarkable except as noted in HPI and below PMFSH Past Medical History Medical History Abnormality of gait Acute heart failure with preserved ejection fraction (HFpEF) Acute UTI Allergic rhinitis, unspecified Atherosclerosis of aorta Atherosclerosis of aorta without gangrene Atrial fib/flutter, transient Benign paroxysmal vertigo, bilateral Bronchitis Bronchospasm Chest pain Chronic anticoagulation Closed displaced fracture of head of right radius with routine healing Closed nondisplaced fracture of lateral malleolus of right fibula Contusion of arm, left Contusion of head and neck region (12/31/22) Current use of senior living anticoagulation Diverticulosis large intestine w/o perforation or abscess w/bleeding LUIS (dyspnea on exertion) Dysuria Essential (primary) hypertension Gastroenteritis and colitis, viral Heart failure with preserved ejection fraction Hyponatremia Hyponatremia Intention tremor Low back pain Lumbar spondylosis Memory changes PAF (paroxysmal atrial fibrillation) Persistent atrial fibrillation Pneumonia and influenza Positive colorectal cancer screening using Cologuard test Postmenopausal Sciatic nerve pain Shoulder pain, left Spinal stenosis of lumbar region with neurogenic claudication Stress at home Weakness generalized Family History Family History Mother Patient's mother is Family history of malignant neoplasm Sibling Asthma Other Family history of arthritis Social History Social History Social History: Smoking status: Former smoker Second hand tobacco smoke exposure: No Smoking end date: 02/26/69 Alcohol intake: never Substance use: never Substance use type: does not use Do You Feel Safe in your Home?: Yes Lack of Transportation: No Lack of Food: Never True Current Housing: I Have Housing Concerned About Future Housing: No Difficulty Paying Gas/Electric Bills: No Difficulty Paying for Meds: No Currently Unemployed: YES Education: Bachelor's Degree Difficulty w/ Childcare or Family Care: No Living arrangements: with family Occupation/Education: retired Gender identity (if verbalized by the patient): Female Sexual Orientation (if Verbalized by the Patient): Straight or Heterosexual Spiritual care concerns: No Exam Narrative: General appearance: Well-developed, well-nourished Skin: Normal color Head: Normocephalic, nontraumatic Eyes: Clear conjunctiva ENT: Oropharynx normal, ears normal, nose normal Neck: Supple, nontender Chest and respiratory: Airway patent, no respiratory distress, no accessory muscle use Heart: Regular rate/rhythm Abdomen: Soft, nontender, no organomegaly, quiet bowel sounds Vascular: Normal peripheral pulses, normal capillary refill. Musculoskeletal: Normal range of motion, nontender back Neurologic: Alert and oriented ?3, GRAVEL HAULER is normal as tested, no gross motor deficit Course Vital Signs Vital signs: Vital Signs Temperature 36.3 C L 01/19/24 12:52 Pulse Rate 85 01/19/24 12:52 Respiratory Rate 18 01/19/24 12:52 Blood Pressure 154/69 H 01/19/24 12:52 Pulse Oximetry 95 01/19/24 12:52 Oxygen Delivery Room Air 01/19/24 12:52 Temperature 36.3 C L 01/19/24 12:52 Pulse Rate 62 01/19/24 13:37 Respiratory Rate 28 H 01/19/24 13:37 Blood Pressure 98/43 L 01/19/24 13:37 Pulse Oximetry 97 01/19/24 13:37 Oxygen Delivery Room Air 01/19/24 13:21 Medical Decision Making MDM Narrative Medical decision making narrative: Patient presents with upper respiratory viral infection symptoms Vital signs are stable Physical examination showing intermittent productive cough, and runny nose. Differential diagnosis upper respiratory viral infection, secondary bacterial infection, pneumonia, bronchitis Blood workup today includes CBC, CMP, troponin, BMP showed sodium of 132 otherwise insignificant finding Chest x-ray showed no acute cardiopulmonary disease Diagnosis upper respiratory infection, possible secondary bacterial infection Discharged on doxycycline, tesalone and Atrovent nasal spray The pt was discharged to home.the pt,s condition upon discharge was fair,education was provided to the pt in reference to the final impression,discharge study results,treatment,prognosis and need for follow up . Differential Diagnosis Differential Diagnosis: As above Vital Signs Vital Signs: Vital Signs Temperature 36.3 C L 01/19/24 12:52 Pulse Rate 85 01/19/24 12:52 Respiratory Rate 18 01/19/24 12:52 Blood Pressure 154/69 H 01/19/24 12:52 Pulse Oximetry 95 01/19/24 12:52 Oxygen Delivery Room Air 01/19/24 12:52 Temperature 36.3 C L 01/19/24 12:52 Pulse Rate 62 01/19/24 13:37 Respiratory Rate 28 H 01/19/24 13:37 Blood Pressure 98/43 L 01/19/24 13:37 Pulse Oximetry 97 01/19/24 13:37 Oxygen Delivery Room Air 01/19/24 13:21 Lab Data 01/19/24 14:35 01/19/24 14:35 Labs: Lab Results 01/19/24 01/19/24 Range/Units 14:07 14:35 WBC 7.1 (4.5-10.0) K/mm3 RBC 4.10 L (4.2-5.4) M/mm3 Hgb 12.4 (12.0-15.0) g/dL Hct 36.6 L (37.0-47.0) % MCV 89.3 (80-100) fl MCH 30.2 (26-34) pg MCHC 33.9 (32-36) g/dl RDW 12.9 (11.5-14.5) % Plt Count 280 (150-375) k/mm3 MPV 10.0 (7.4-10.4) fl Immature Gran % (Auto) 0.1 (0-0.5) % Neut % (Auto) 66.5 (45.5-73.1) % Lymph % (Auto) 25.2 (18.3-44.2) % [place] % (Auto) 6.5 (2.6-8.5) % Eos % (Auto) 1.3 (0-4.4) % Baso % (Auto) 0.4 (0.2-1.2) % Lymph # (Auto) 1.80 (0.9-3.2) K/mm3 [place] # (Auto) 0.5 (0.1-0.6) K/mm3 Eos # (Auto) 0.1 (0-0.3) K/mm3 Baso # (Auto) 0.0 (0.0-0.1) K/mm3 Abs Immat Gran (auto) 0.01 (0.00-0.031) K/mm3 Absolute Neuts (auto) 4.7 (1.3-6.7) K/mm3 Absolute Nucleated RBC 0.000 (0.0-0.012) K/mm3 Nucleated RBC % 0.0 (0.0-0.2) % PT 14.5 (11.1-14.7) Seconds INR 1.1 APTT 34.2 (22.3-36.8) Seconds Sodium 132 L (137-145) mmol/L Potassium 3.7 (3.4-5.0) mmol/L Chloride 96 L (98-107) mmol/L Carbon Dioxide 28 (22-30) mmol/L Anion Gap 8 (4-12) mmol/L BUN 14 (7-17) mg/dL Creatinine 0.60 L (0.7-1.0) mg/dL Estim Creat Clear Calc 60 ml/min Estimated GFR > 60 (59 - ) Glucose 101 (65-110) mg/dL Calcium 9.2 (8.4-10.2) mg/dL Total Bilirubin 0.9 (0.2-1.3) mg/dL AST 27 (14-36) U/L ALT 17 (6-35) U/L Alkaline Phosphatase 75 (38-126) U/L Troponin I Pending NT-Pro-B Natriuret Pep Pending Total Protein 8.0 (6.3-8.2) g/dL Albumin 4.4 (3.5-5.1) g/dL Influenza A (RT-PCR) Negative (Negative) Influenza B (RT-PCR) Negative (Negative) RSV (RT-PCR) Negative (Negative) SARS-CoV-2 RNA (RT-PCR) Negative (Negative) ABG Data ABG results: 01/19/24 14:06 Puncture Site Left radial ABG pH 7.419 ABG pCO2 43.3 ABG pO2 74.0 L ABG PO2/FiO2 Ratio 3.52 ABG HCO3 27.4 H ABG O2 Saturation 95.1 ABG O2 Content 17.3 ABG Base Excess 2.5 A-a Gradient 23.9 Oxyhemoglobin 94.6 Total Hemoglobin 13.0 O2 Delivery Device Room air O2 Liters/Min 0.0 FiO2 21 Imaging Data Radiologist's impression: Impressions Chest X-Ray 01/19/24 14:17 IMPRESSION: No active cardiopulmonary disease Critical Care Time Critical Care Time Critical Care Time: No Discharge Plan Discharge Clinical Impression: Acute upper respiratory infection, Bronchitis Patient Disposition: Home, Self-Care Condition: Stable Instructions: Upper Respiratory Infection (DC), Acute Bronchitis (ED) Additional Instructions: Return if symptoms are worsening , call your family physician for appointment, take Tylenol as as needed for aches and pain, continue home medications. Has sleep and rest are the best way to held your immune system Drink plenty of fluid to avoid dehydration Use a humidifier or a cool mist vaporizer to add moisture Saline nasal spray or drops Breathe and steam from a hot shower or a bowl of hot water Prescriptions: New doxycycline hyclate 100 mg capsule 100 mg PO BID Qty: 20 0RF benzonatate 100 mg capsule 100 mg PO TID PRN (Reason: cough) Qty: 30 0RF ipratropium bromide 42 mcg (0.06 %) spray,non-aerosol 2 spray intranasal QID 7 Days Qty: 15 0RF Rx Instructions: administer into each nostril No Action furosemide 20 mg tablet See Rx Instructions .ROUTE .COMPLEX Qty: 90 1RF Dose Instruction: TAKE 2 TABLETS BY MOUTH EVERY MORNING Rx Instructions: TAKE 1 TABLET BY MOUTH EVERY MORNING ropinirole 0.25 mg tablet See Rx Instructions .ROUTE .COMPLEX Qty: 90 1RF Dose Instruction: TAKE 1 TABLET ORALLY NEEDED FOR RESTLESS LEGS Rx Instructions: TAKE 1 TABLET ORALLY NEEDED FOR RESTLESS LEGS Metamucil 3.4 gram/5.4 gram powder 1 tbsp PO BID Rx Instructions: mix into at least 8 oz of water or juice before administering amiodarone 100 mg tablet 100 mg PO DAILY Qty: 90 2RF Adult One Daily Multivitamin 1 tablet PO DAILY Calcium 600 600 mg BYMOUTH BID Eliquis 2.5 mg tablet 2.5 mg PO BID Qty: 60 5RF losartan 50 mg tablet 50 mg PO DAILY Qty: 90 1RF dexamethasone 4 mg tablet 4 mg PO BID Qty: 10 0RF Rx Instructions: 1 tab bid x3days, 1/2 tab bid x4d Follow-up/Referrals: Chrissy Andre MD [Primary Care Provider] -
[2024-01-19 14:15] LABS: Alveolar/Arterial O2 Gradient 23.9 mmHg; Base Excess ABG 2.5 mEq/l (+/-2.0); Fractional Inspired Oxygen 21 %; HCO3 ABG 27.4 mEq/l (22.0-26.0); Oxygen Content ABG 17.3 %vol (16.0-22.0); Oxygen Saturation ABG 95.1 % (95.0-100.0); Oxyhemoglobin 94.6 % THb (90.0-100.0); PCO2 ABG 43.3 mmHg (35.0-45.0); PO2 FiO2 Ratio Arterial Blood 3.52 %; pH ABG 7.419 (7.350-7.450)
[2024-01-19 14:16] LABS: Device ROOM AIR; Modified Allen's Test Pass; Site Drawn LEFT RADIAL
[2024-01-19 14:40] LABS: Basophils Percent Auto 0.4 % (0.2-1.2); Eosinophils Absolute Auto 0.1 K/mm3 (0-0.3); Eosinophils Percent Auto 1.3 % (0-4.4); Hematocrit 36.6 % (37.0-47.0); Hemoglobin 12.4 g/dL (12.0-15.0); Immature Granulocyte Absolute 0.01 K/mm3 (0.00-0.031); Immature Granulocyte Percent A 0.1 % (0-0.5); Lymphocytes Percent Auto 25.2 % (18.3-44.2); Mean Corpuscular HGB Conc 33.9 g/dl (32-36); Mean Corpuscular Hemoglobin 30.2 pg (26-34); Mean Corpuscular Volume 89.3 fl (80-100); Monocytes Absolute Auto 0.5 K/mm3 (0.1-0.6); Monocytes Percent Auto 6.5 % (2.6-8.5); Neutrophils Absolute Auto 4.7 K/mm3 (1.3-6.7); Neutrophils Percent Auto 66.5 % (45.5-73.1); Platelet Count Result 280 k/mm3 (150-375); Red Cell Distribution Width 12.9 % (11.5-14.5); White Blood Count 7.1 K/mm3 (4.5-10.0)
[2024-01-19 14:49] LABS: Influenza A QL RT-PCR Negative (Negative); Influenza B QL RT-PCR Negative (Negative); RSV RNA, RT-PCR Negative (Negative); SARS-CoV-2 RNA PCR Negative (Negative)
[2024-01-19 14:52] LABS: INR 1.1; Prothrombin Time 14.5 Seconds (11.1-14.7)
[2024-01-19 14:53] LABS: Alanine Aminotransferase 17 U/L (6-35); Albumin Level 4.4 g/dL (3.5-5.1); Alkaline Phosphatase 75 U/L (38-126); Anion Gap 8 mmol/L (4-12); Aspartate Amino Transferase 27 U/L (14-36); Bilirubin,Total 0.9 mg/dL (0.2-1.3); Blood Urea Nitrogen 14 mg/dL (7-17); Calcium 9.2 mg/dL (8.4-10.2); Carbon Dioxide 28 mmol/L (22-30); Chloride 96 mmol/L (98-107); Estimated CRCL calculation 60 ml/min; Estimated Glomerular Filt Rate > 60; Glucose 101 mg/dL (65-110); Partial Thromboplastin Time 34.2 Seconds (22.3-36.8); Potassium 3.7 mmol/L (3.4-5.0); Sodium 132 mmol/L (137-145)
[2024-01-19 15:04] LABS: NT Pro B Type Natriuretic Pept 244 pg/mL (19.9-100); Troponin I < 0.012 ng/mL (0.000-0.034)
== END 2024-01-19 15:25 | disposition home or self-care (01) ==
PROVIDERS: Emergency Provider Emergency Medicine; PCP Family Medicine
DX: J06.9 Acute upper respiratory infection, unspecified (principal); J40 Bronchitis, not specified as acute or chronic; Z20.822 Contact with and (suspected) exposure to COVID-19; I70.0 Atherosclerosis of aorta; I50.9 Heart failure, unspecified; I11.0 Hypertensive heart disease with heart failure; I48.19 Other persistent atrial fibrillation; Z87.891 Personal history of nicotine dependence; Z87.01 Personal history of pneumonia (recurrent); Z87.440 Personal history of urinary (tract) infections; Z79.01 Long term (current) use of anticoagulants; Z79.899 Other long term (current) drug therapy
CPT/HCPCS: 36415; 36600; 71046; 80053; 82805; 83880; 84484; 85018; 85025; 85610; 85730; 87040; 87637; 99284

== ENCOUNTER 2024-04-23 17:32 | Emergency (ER) | payer OTHER, SELFPAY ==
--- NOTE | ~2024-04-23 | XR_ITS ---
EXAMINATION: XR chest 2V Exam Date/Time: 04/23/2024 18:15 SENIOR HRIS ANALYST HISTORY: palpitations, sob Comparison: 01/19/2024. RESULT: Lines, tubes, and devices: None. Lungs and pleura: Mild biapical pleural scarring. Senescent changes. Otherwise clear. Cardiomediastinal silhouette: Stable. Mitral annulus calcification. Other: No acute osseous or upper abdominal finding. IMPRESSION: No acute cardiopulmonary process. Reviewed, dictated and finalized at location K. OR HRIS ANALYST
[2024-04-23 17:36] VITALS: BP 142/67; PULSE 80; RESP 18; TEMP 36.3; O2SAT 98
--- NOTE | 2024-04-23 17:46 | ECG_ITS ---
Test Date: 2024-04-23 18:07:31 Measurements Intervals Pandora Rate: 74 P: 81 ME: 217 QRS: 27 QRSD: 102 T: 41 QT: 396 QTc: 442 Interpretive Statements SINUS RHYTHM WITH FIRST DEGREE AV BLOCK LOW QRS VOLTAGE IN PRECORDIAL LEADS BASELINE ARTIFACT- I, II, III, AVR, AVL, AVF, V3-V6 BORDERLINE ECG No previous ECG available for comparison Electronically Signed On 04-23-2024 19:06:41 NON CATEGORICAL PRESCHOOL TEACHER by Ricardo Barreto D.O.
--- NOTE | 2024-04-23 17:52 | ED.ARRPALP ---
HPI - Arrhythmia/Palpitations General Chief Complaint: Arrhythmia/Palpitations <Monique Foster PA-C - Last Filed: 04/24/24 10:40> Stated Complaint: palpitations, hx of afib <Monique Foster PA-C - Last Filed: 04/24/24 10:40> Time Seen by Provider: 04/23/24 17:52 <Monique Foster PA-C - Last Filed: 04/24/24 10:40> Focused HPI: This is a 88 year old female that presents to the ER for palpitations. Reports history of afib. Reports she has felt exhausted and short of breath. Also reports indigestion. She was concerned she was in afib again. GENERAL: Elderly, well-nourished, and in no acute distress. HEAD: Normocephalic, atraumatic. CHEST: Clear to auscultation. ?No respiratory distress. HEART: Regular rate and rhythm.? NEURO: ?Alert and oriented x3. Patient screened in triage and initial orders placed.? ?Additional care and disposition to be based upon?diagnostic testing and treatment. <Monique Foster PA-C - Last Filed: 04/24/24 10:40> History of Present Illness HPI narrative: Patient 88-year-old female who presents emergency department chief complaint of palpitations. Patient reports he has had AFib before in the past reports he has felt a little short of breath and also had some indigestion the patient decided to come to the emergency department to make sure that she did not have atrial fibrillation today patient reports he is not actively having any chest pain reports that she does feel little tired and run down the patient denies fever <Edmundo Govea MD - Last Filed: 04/23/24 21:42> Related Data Home Medications: Home Medications ?Medication ?Instructions ?Recorded ?Confirmed ?Last Taken ?Type Adult One Daily Multivitamin 1 tablet PO DAILY 12/30/20 01/28/24 01/18/21 08:00 History Calcium 600 600 mg BYMOUTH BID 12/30/20 01/28/24 01/18/21 08:00 History psyllium husk 3.4 gram/5.4 gram 1 tbsp PO BID 06/21/23 01/28/24 Unknown History oral powder (Metamucil) <Monique Foster PA-C - Last Filed: 04/24/24 10:40> Allergies/Adverse Reactions: Allergies Allergy/AdvReac Type Severity Reaction Status Date / Time levofloxacin Allergy Mild Nausea and Verified 02/11/24 10:45 Vomiting metronidazole Allergy Mild Nausea and Verified 02/11/24 10:45 Vomiting adhesive tape Allergy Unknown BLISTERS Verified 02/11/24 10:45 codeine Allergy Unknown Vomiting Verified 02/11/24 10:45 Iodinated Contrast Media Allergy Unknown Unknown Verified 02/11/24 10:45 Contrast Media Allergy Unknown unknown Uncoded 02/11/24 10:45 <Monique Foster PA-C - Last Filed: 04/24/24 10:40> Review of Systems Review of Systems: A 10 system review of systems was completed on the patient and is negative except for what is stated in the HPI. Nursing and ancillary documentation was reviewed. <Edmundo Govea MD - Last Filed: 04/23/24 21:42> [facility] Past Medical History Medical History: Medical History Memory changes Contusion of arm, left Contusion of head and neck region (12/31/22) Intention tremor Weakness generalized Atherosclerosis of aorta without gangrene Lumbar spondylosis Gastroenteritis and colitis, viral Low back pain Acute UTI Dysuria Sciatic nerve pain Shoulder pain, left Chest pain Acute heart failure with preserved ejection fraction (HFpEF) Chronic anticoagulation Heart failure with preserved ejection fraction Persistent atrial fibrillation Hyponatremia Bronchospasm LUIS (dyspnea on exertion) Abnormality of gait Atrial fib/flutter, transient Hyponatremia Stress at home Positive colorectal cancer screening using Cologuard test Allergic rhinitis, unspecified Atherosclerosis of aorta Benign paroxysmal vertigo, bilateral Bronchitis Closed displaced fracture of head of right radius with routine healing Closed nondisplaced fracture of lateral malleolus of right fibula 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 treater 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 Diverticulosis large intestine w/o perforation or abscess w/bleeding Essential (primary) hypertension PAF (paroxysmal atrial fibrillation) Pneumonia and influenza Postmenopausal Spinal stenosis of lumbar region with neurogenic claudication <Monique Foster PA-C - Last Filed: 04/24/24 10:40> Family History Family History: Family History Mother Patient's mother is Family history of malignant neoplasm Sibling Asthma Other Family history of arthritis <Monique Foster PA-C - Last Filed: 04/24/24 10:40> Social History Social History: Social History Social History: Smoking status: Former smoker Second hand tobacco smoke exposure: No Smoking end date: 02/26/69 Alcohol intake: never Substance use: never Substance use type: does not use Do You Feel Safe in your Home?: Yes Lack of Transportation: No Lack of Food: Never True Current Housing: I Have Housing Concerned About Future Housing: No Difficulty Paying Gas/Electric Bills: No Difficulty Paying for Meds: No Currently Unemployed: YES Education: Bachelor's Degree Difficulty w/ Childcare or Family Care: No Living arrangements: with family Occupation/Education: retired Gender identity (if verbalized by the patient): Female Sexual Orientation (if Verbalized by the Patient): Straight or Heterosexual Spiritual care concerns: No <Monique Foster PA-C - Last Filed: 04/24/24 10:40> Exam Narrative: GENERAL: Well-appearing, well-nourished, and in no acute distress. HEAD: Normocephalic, atraumatic. EYES: PERRLA and EOMI. ENT: Nares clear, no rhinorrhea or epistaxis. Mucous membranes moist. NECK: Supple. CHEST: Clear to auscultation. No respiratory distress. HEART: Regular rate and rhythm. No murmur heard. Normal peripheral pulses. ABDOMEN: Soft, nontender, nondistended, normal active bowel sounds. EXTREMITIES: Normal range of motion. No edema. SKIN: Warm, dry, no rash. NEURO: No focal deficits. Alert and oriented x3. PSYCH: Normal mood and affect. <Edmundo Govea MD - Last Filed: 04/23/24 21:42> Course Vital Signs Vital signs: Vital Signs Temperature 97.3 F L 04/23/24 17:36 Pulse Rate 80 04/23/24 17:36 Respiratory Rate 18 04/23/24 17:36 Blood Pressure 142/67 H 04/23/24 17:36 Pulse Oximetry 98 04/23/24 17:36 Oxygen Delivery Room Air 04/23/24 17:36 Temperature 97.3 F L 04/23/24 17:36 Pulse Rate 80 04/23/24 17:36 Respiratory Rate 18 04/23/24 17:36 Blood Pressure 142/67 H 04/23/24 17:36 Pulse Oximetry 98 04/23/24 17:36 Oxygen Delivery Room Air 04/23/24 17:36 <Monique Foster PA-C - Last Filed: 04/24/24 10:40> Vital Signs Temperature 97.3 F L 04/23/24 17:36 Pulse Rate 80 04/23/24 17:36 Respiratory Rate 18 04/23/24 17:36 Blood Pressure 142/67 H 04/23/24 17:36 Pulse Oximetry 98 04/23/24 17:36 Oxygen Delivery Room Air 04/23/24 17:36 Temperature 97.3 F L 04/23/24 17:36 Pulse Rate 80 04/23/24 17:36 Respiratory Rate 18 04/23/24 17:36 Blood Pressure 142/67 H 04/23/24 17:36 Pulse Oximetry 98 04/23/24 17:36 Oxygen Delivery Room Air 04/23/24 17:36 <Edmundo Govea MD - Last Filed: 04/23/24 21:42> MDM - Arrhythmia/Palpitations MDM Narrative Medical decision making narrative: Differential diagnosis includes pneumonia, atrial fibrillation, dysrhythmia, electrolyte abnormality, ACS EKG showed normal sinus rhythm no evidence of ST elevation or ST depression no AFib initial troponin was negative Laboratory studies were within normal limits Repeat EKG showed sinus rhythm Repeat troponin was negative. The patient's BNP was lower than her previous visit chest x-ray showed no focal infiltrate no evidence of pulmonary edema The patient will be discharged home to follow-up with her parking enforcer <Edmundo Govea MD - Last Filed: 04/23/24 21:42> Lab Data Result diagrams: 04/23/24 18:11 04/23/24 18:11 <Monique Foster PA-C - Last Filed: 04/24/24 10:40> Labs: Lab Results 04/23/24 04/23/24 Range/Units 18:11 21:02 WBC 6.6 (4.5-10.0) K/mm3 RBC 4.29 (4.2-5.4) M/mm3 Hgb 12.8 (12.0-15.0) g/dL Hct 38.8 (37.0-47.0) % MCV 90.4 (80-100) fl MCH 29.8 (26-34) pg MCHC 33.0 (32-36) g/dl RDW 12.6 (11.5-14.5) % Plt Count 270 (150-375) k/mm3 MPV 10.6 H (7.4-10.4) fl Immature Gran % (Auto) 0.2 (0-0.5) % Neut % (Auto) 62.9 (45.5-73.1) % Lymph % (Auto) 25.9 (18.3-44.2) % [place] % (Auto) 8.7 H (2.6-8.5) % Eos % (Auto) 1.7 (0-4.4) % Baso % (Auto) 0.6 (0.2-1.2) % Lymph # (Auto) 1.70 (0.9-3.2) K/mm3 [place] # (Auto) 0.6 (0.1-0.6) K/mm3 Eos # (Auto) 0.1 (0-0.3) K/mm3 Baso # (Auto) 0.0 (0.0-0.1) K/mm3 Abs Immat Gran (auto) 0.01 (0.00-0.031) K/mm3 Absolute Neuts (auto) 4.1 (1.3-6.7) K/mm3 Absolute Nucleated RBC 0.000 (0.0-0.012) K/mm3 Nucleated RBC % 0.0 (0.0-0.2) % PT 14.0 (11.1-14.7) Seconds INR 1.0 APTT 38.2 H (22.3-36.8) Seconds Sodium 135 L (137-145) mmol/L Potassium 4.1 (3.4-5.0) mmol/L Chloride 96 L (98-107) mmol/L Carbon Dioxide 29 (22-30) mmol/L Anion Gap 10 (4-12) mmol/L BUN 14 (7-17) mg/dL Creatinine 0.68 L (0.7-1.0) mg/dL Estim Creat Clear Calc 55 ml/min Estimated GFR > 60 (59 - ) Glucose 108 (65-110) mg/dL Calcium 9.3 (8.4-10.2) mg/dL Total Bilirubin 0.7 (0.2-1.3) mg/dL AST 22 (14-36) U/L ALT 17 (6-35) U/L Alkaline Phosphatase 81 (38-126) U/L Troponin I < 0.012 < 0.012 (0.000-0.034) ng/mL NT-Pro-B Natriuret Pep 157 H (19.9-100) pg/mL Total Protein 8.0 (6.3-8.2) g/dL Albumin 4.4 (3.5-5.1) g/dL Lipase 108 (23-300) U/L <Monique Foster PA-C - Last Filed: 04/24/24 10:40> Lab Results 04/23/24 04/23/24 Range/Units 18:11 21:02 WBC 6.6 (4.5-10.0) K/mm3 RBC 4.29 (4.2-5.4) M/mm3 Hgb 12.8 (12.0-15.0) g/dL Hct 38.8 (37.0-47.0) % MCV 90.4 (80-100) fl MCH 29.8 (26-34) pg MCHC 33.0 (32-36) g/dl RDW 12.6 (11.5-14.5) % Plt Count 270 (150-375) k/mm3 MPV 10.6 H (7.4-10.4) fl Immature Gran % (Auto) 0.2 (0-0.5) % Neut % (Auto) 62.9 (45.5-73.1) % Lymph % (Auto) 25.9 (18.3-44.2) % [place] % (Auto) 8.7 H (2.6-8.5) % Eos % (Auto) 1.7 (0-4.4) % Baso % (Auto) 0.6 (0.2-1.2) % Lymph # (Auto) 1.70 (0.9-3.2) K/mm3 [place] # (Auto) 0.6 (0.1-0.6) K/mm3 Eos # (Auto) 0.1 (0-0.3) K/mm3 Baso # (Auto) 0.0 (0.0-0.1) K/mm3 Abs Immat Gran (auto) 0.01 (0.00-0.031) K/mm3 Absolute Neuts (auto) 4.1 (1.3-6.7) K/mm3 Absolute Nucleated RBC 0.000 (0.0-0.012) K/mm3 Nucleated RBC % 0.0 (0.0-0.2) % PT 14.0 (11.1-14.7) Seconds INR 1.0 APTT 38.2 H (22.3-36.8) Seconds Sodium 135 L (137-145) mmol/L Potassium 4.1 (3.4-5.0) mmol/L Chloride 96 L (98-107) mmol/L Carbon Dioxide 29 (22-30) mmol/L Anion Gap 10 (4-12) mmol/L BUN 14 (7-17) mg/dL Creatinine 0.68 L (0.7-1.0) mg/dL Estim Creat Clear Calc 55 ml/min Estimated GFR > 60 (59 - ) Glucose 108 (65-110) mg/dL Calcium 9.3 (8.4-10.2) mg/dL Total Bilirubin 0.7 (0.2-1.3) mg/dL AST 22 (14-36) U/L ALT 17 (6-35) U/L Alkaline Phosphatase 81 (38-126) U/L Troponin I < 0.012 < 0.012 (0.000-0.034) ng/mL NT-Pro-B Natriuret Pep 157 H (19.9-100) pg/mL Total Protein 8.0 (6.3-8.2) g/dL Albumin 4.4 (3.5-5.1) g/dL Lipase 108 (23-300) U/L <Edmundo Govea MD - Last Filed: 04/23/24 21:42> Imaging Data Radiologist's impression: ITS Impressions Chest X-Ray 04/23/24 18:35 IMPRESSION: No acute cardiopulmonary process. <Monique Foster PA-C - Last Filed: 04/24/24 10:40> Critical Care Time Critical Care Time Critical Care Time: No <YIN Lazar Last Filed: 04/24/24 10:40> Discharge Plan Discharge Clinical Impression: Palpitations <YIN Lazar Last Filed: 04/24/24 10:40> Patient Disposition: Home, Self-Care <YIN Lazar Last Filed: 04/24/24 10:40> Condition: Stable <YIN Lazar Last Filed: 04/24/24 10:40> Instructions: Antibiotic Form, Heart Palpitations (ED) <YIN Lazar Last Filed: 04/24/24 10:40> Patient Language: Andorran <YIN Lazar Last Filed: 04/24/24 10:40> Prescriptions: No Action furosemide 20 mg tablet See Rx Instructions .ROUTE .COMPLEX Qty: 90 1RF Dose Instruction: TAKE 2 TABLETS BY MOUTH EVERY MORNING Rx Instructions: TAKE 1 TABLET BY MOUTH EVERY MORNING ropinirole 0.25 mg tablet See Rx Instructions .ROUTE .COMPLEX Qty: 90 1RF Dose Instruction: TAKE 1 TABLET ORALLY NEEDED FOR RESTLESS LEGS Rx Instructions: TAKE 1 TABLET ORALLY NEEDED FOR RESTLESS LEGS Metamucil 3.4 gram/5.4 gram powder 1 tbsp PO BID Rx Instructions: mix into at least 8 oz of water or juice before administering amiodarone 100 mg tablet 100 mg PO DAILY Qty: 90 2RF ipratropium bromide 42 mcg (0.06 %) spray,non-aerosol 2 spray intranasal QID 7 Days Qty: 15 0RF Rx Instructions: administer into each nostril Adult One Daily Multivitamin 1 tablet PO DAILY Calcium 600 600 mg BYMOUTH BID Eliquis 2.5 mg tablet 2.5 mg PO BID Qty: 60 5RF losartan 50 mg tablet See Rx Instructions .ROUTE .COMPLEX Qty: 90 2RF Dose Instruction: TAKE 1 TABLET BY MOUTH EVERY DAY Rx Instructions: TAKE 1 TABLET BY MOUTH EVERY DAY <YIN Lazar Last Filed: 04/24/24 10:40> Follow-up/Referrals: Thai,Chrissy Butler MD [Primary Care Provider] - <Monique Foster PA-C - Last Filed: 04/24/24 10:40> Time of Disposition: 21:40 <Monique Foster PA-C - Last Filed: 04/24/24 10:40> 21:40 <Edmundo Govea MD - Last Filed: 04/23/24 21:42>
[2024-04-23 18:19] LABS: Basophils Percent Auto 0.6 % (0.2-1.2); Eosinophils Absolute Auto 0.1 K/mm3 (0-0.3); Eosinophils Percent Auto 1.7 % (0-4.4); Hematocrit 38.8 % (37.0-47.0); Hemoglobin 12.8 g/dL (12.0-15.0); Immature Granulocyte Absolute 0.01 K/mm3 (0.00-0.031); Immature Granulocyte Percent A 0.2 % (0-0.5); Lymphocytes Percent Auto 25.9 % (18.3-44.2); Mean Corpuscular Hemoglobin 29.8 pg (26-34); Mean Corpuscular Volume 90.4 fl (80-100); Mean Platelet Volume 10.6 fl (7.4-10.4); Monocytes Absolute Auto 0.6 K/mm3 (0.1-0.6); Monocytes Percent Auto 8.7 % (2.6-8.5); Neutrophils Absolute Auto 4.1 K/mm3 (1.3-6.7); Neutrophils Percent Auto 62.9 % (45.5-73.1); Platelet Count Result 270 k/mm3 (150-375); Red Blood Count 4.29 M/mm3 (4.2-5.4); Red Cell Distribution Width 12.6 % (11.5-14.5); White Blood Count 6.6 K/mm3 (4.5-10.0)
[2024-04-23 18:31] LABS: Alanine Aminotransferase 17 U/L (6-35); Albumin Level 4.4 g/dL (3.5-5.1); Alkaline Phosphatase 81 U/L (38-126); Anion Gap 10 mmol/L (4-12); Aspartate Amino Transferase 22 U/L (14-36); Bilirubin,Total 0.7 mg/dL (0.2-1.3); Blood Urea Nitrogen 14 mg/dL (7-17); Calcium 9.3 mg/dL (8.4-10.2); Carbon Dioxide 29 mmol/L (22-30); Chloride 96 mmol/L (98-107); Estimated CRCL calculation 55 ml/min; Estimated Glomerular Filt Rate > 60; Glucose 108 mg/dL (65-110); Lipase 108 U/L (23-300); Potassium 4.1 mmol/L (3.4-5.0); Sodium 135 mmol/L (137-145)
[2024-04-23 18:33] LABS: Partial Thromboplastin Time 38.2 Seconds (22.3-36.8)
[2024-04-23 18:40] LABS: NT Pro B Type Natriuretic Pept 157 pg/mL (19.9-100)
--- OUTSIDE RECORDS SUMMARY | 2024-04-23 18:41 | XMS_ITS | Continuity of Care Document ---
Author Organization [facility] Address [address] [place] [address] Phone Care Team Providers Care Child Nutrition Manager Name Role Phone Franklin PT,MPT,ATC, George Unavailable Unavai lable Procedures Procedure Date PT Evaluation Moderate Complexity Neuromuscular Re-Ed Advance Directives Directive Yes / No Effective Date File Name No Information Encounters Encounter Description Practice Location Reason(s) For Visit Diagnoses Date Provider Providers Copied on Encounter [facility], [facility] [address], [place], [place], [id number], tel:[phone] [place] Other abnormalities of gait and mobilityUnstead iness on feetDizziness and giddiness [address] [place], [place], . Referring Provider: Chrissy Andre , [address] [facility], [place], [address]. tel:[phone] Family History Family Member Type Diagnosis Age At Onset No Information Payers Payer name Insurance type Covered libertarian ID Authoriza tion(s) [employer] CI [id number] Social History Type Description Quantity Date Captured [...]
--- OUTSIDE RECORDS SUMMARY | 2024-04-23 18:41 | XMS_ITS | Clinical Summary ---
Author Organization [facility] [address] Address [address] [place] [address] Care Team Providers Care Ingot Header Name Role Phone Chrissy Andre MD Primary Care Provider Allergies Active Allergy Reactions Criticality Noted Date Comments Adhesive Tape-Silicones Codeine Iodine And Iodide Containing Products Medications calcium carbonate (CALCIUM 600) 1,500 mg (600 mg of elemental calcium) tablet take 1 by Oral route 2 times every day 0 0 6 Active multivitamin capsule take 1 capsule by oral route every day 0 0 6 Active furosemide (LASIX) 20 mg tablet Take 1 tablet (20 mg total) by mouth every morning TAKE 2 TABLETS BY MOUTH ONCE DAILY (TOTAL 40MG) 1 Active cane deviceIndicati ons:Unsteady gait when walking 1 Units daily 1 each 1 Active Additional Information Patient taking differently:1 Units miscellaneous Daily,Rolator, Reported on 09/19/2021 psyllium, aspartame, SF (METAMUCIL SF) 3.4 gram packet Take 1 packet by mouth daily Active Eliquis 5 mg tablet TAKE 1 TABLET BY MOUTH TWICE A DAY 180 tablet 2 3 Active losartan (COZAAR) 50 mg tablet TAKE 1 TABLET BY MOUTH EVERY DAY 90 tablet 3 3 Active rOPINIRole (REQUIP) 0.25 mg tablet TAKE 1 TABLET ORALLY NEEDED FOR RESTLESS LEGS 3 Active iron 18 mg tablet Take 4 tablets by mouth daily Active amiodarone (PACERONE) 100 mg tablet Take 1 tablet (100 mg total) by mouth daily 90 tablet 4 Active Active Problems Problem Noted Date Diagnosed Date Chronic respiratory failure with hypoxia (CMS/HC C) 12/15/2021 At risk for amiodarone toxicity with intermediate u se 04/27/2021 Chronic fatigue 09/17/2019 Palpitations 12/06/2017 Abnormal pulmonary function test 06/22/2017 Chronic anticoagulation 03/16/2016 Overview (06/08/2016): Chronic anticoagulation Dyspnea on exertion 01/14/2016 Overview (06/08/2016): LUIS (dyspnea on exertion) Chest pain on exertion 01/14/2016 Overview (06/08/2016): Chest pain on exertion Nutritional anemia 12/02/2015 Overview (06/08/2016): Anemia due to vitamin B12 deficiency, unspecified B12 deficiency type Pulmonary hypertension 12/02/2015 Overview (06/08/2016): Pulmonary HTN Gastrointestinal hemorrhage 12/02/2015 Overview (06/08/2016): Gastrointestinal hemorrhage, unspecified gastrointestinal hemorrhage type Diverticula of intestine 12/02/2015 Overview (06/08/2016): Diverticulosis of intestine with bleeding, unspecified intestinal tract location Benign hypertension 12/02/2015 Overview (06/08/2016): HTN (hypertension), benign Longstanding persistent atrial fibrillation (CMS /HCC) 12/02/2015 Overview (06/08/2016): Paroxysmal atrial fibrillation Surgical History Surgery Date Site/Laterality Comments TOTAL ABDOMINAL HYSTERECTOMY Hysterectomy, total CHOLECYSTECTOMY Cholecystectomy Medical History Medical History Date Comments Hypertension Hypertension Diverticulitis of intestine Dive rticulitis; Comments: LRS 12/02/2015 - Family History Medical History Relation Name Comments Unexplained Father Cancer Mother lymphoma, bladd er, rectal Stroke Mother Stroke Other Family history of Stroke; Relation Name Status Comments Father Mother Other Social History Tobacco Use Types Packs/Day Years Used Date Smoking Tobacco: Former Cigarettes 0.1 15 Smokeless Tobacco: Never Tobacco Cessation:Counseling Given: Not Answered Alcohol Use Standard Drinks/Week Comments No 0 (1 standard drink = 0.6 oz pur e alcohol) Comments Unknown Sex and Gender Information Value Date Recorded Sex Assigned at Not on file Legal Sex Female 4:09 AM PEWTER FABRICATOR Gender Identity Not on file Sexual Orientation Not on file Obstetrics History Last Filed Vital Signs Vital Sign Reading Time Taken Comments Blood Pressure 132/62 02/08/2023 3:06 PM PEWTER FABRICATOR Pulse 78 02/08/2023 3:06 PM PEWTER FABRICATOR Temperature 36.4 C (97.5 F) 01/01/2020 11:14 AM PEWTER FABRICATOR Respiratory Rate 14 09/20/2016 8:33 AM CDT Oxygen Saturation 94% 02/08/2023 3:06 PM PEWTER FABRICATOR Inhaled Oxygen Concentration - - Weight 84.4 kg (186 lb) 02/08/2023 3:06 PM PEWTER FABRICATOR Height 165.1 cm (5' 5 ) 02/08/2023 3:06 PM PEWTER FABRICATOR Body Mass Index 30.95 02/08/2023 3:06 PM PEWTER FABRICATOR Plan of Treatment Health Maintenance Due Date Last Done Comments Depression Screening 1935 Fall Risk Assessment 1935 Hepatitis B Screening 10/07/1955 Pneumococcal vaccine 65+ (1 of 1 - PCV) 10/07/1987 Zoster Vaccine (1 of 2) 10/07/1987 Well Visit 65+ 2002 Influenza Vaccine (#1) 2023 8, 12/07/2012, 11/29/2011 DTaP/Tdap/Td Vaccine (2 - Td or Tdap) 09/09/2024 Insurance [facility] Care Teams Ingot Header Relationship Specialty Start Date End Date Chrissy Andre MD [address] [facility] [address] [place] [address] PCP - General 06/06/16
--- OUTSIDE RECORDS SUMMARY | 2024-04-23 18:42 | XMS_ITS | Clinical Summary ---
Author Organization [facility] Address [address] [facility] [place] [address] Care Team Providers Care Passenger Vessel Chef Name Role Phone Chrissy Andre MD Primary Care Provider + Zain Sanders MD Unavailable [phone] Source Comments [facility],non-owned Affiliates and Associated Physician Practices is amultiple site organization consisting of ambulatory clinics and hospital sitesin [place], [place], [place] and [place]. This disclosure is being madepursuant to the Care Everywhere program and may not contain all information available regarding this patient. Last updated 17.[facility] PPT Reasearch Allergies Active Allergy Reactions Criticality Noted Date Comments Adhesive Sensitivity Skin Reactions Codeine Unknown Iodine Other Medications * Be aware that medications may not be up to date on this document. Alwaysverify current medications with the patient. Medication Sig Dispensed Refills Start Date End Date Status FIBER PO Active apixaban (ELIQUIS) 5 MG tablet Take 5 mg by mouth 2 times daily Active calcium 600 MG tablet Take 1 tablet by mouth daily with food Active metoprolol tartrate (LOPRESSOR) 50 MG tablet Take 50 mg by mouth 2 times daily Active losartan - hydroCHLOROthiazide (HYZAAR) 50-12.5 MG tablet Take 1 tablet by mouth once daily Active Social History Tobacco Use Types Packs/Day Years Used Date Smoking Tobacco: Never Assessed Sex and Gender Information Value Date Recorded Sex Assigned at Not on file Gender Identity Not on file Sexual Orientation Not on file Last Filed Vital Signs Vital Sign Reading Time Taken Comments Blood Pressure 136/85 06/20/2018 10:37 AM CDT Pulse 63 06/20/2018 10:37 AM CDT Temperature - - Respiratory Rate - - Oxygen Saturation - - Inhaled Oxygen Concentration - - Weight 88.5 kg (195 lb) 07/08/2018 8:56 AM CDT Height 165.1 cm (5' 5 ) 07/08/2018 8:56 AM CDT Body Mass Index 32.45 07/08/2018 8:56 AM CDT Plan of Treatment Health Maintenance Due Date Last Done Comments BONE DENSITY TESTING 1935 DTAP/TDAP/TD VACCINES (1 - Tdap) 1956 PNEUMOCOCCAL VACCINE 50+ (1 of 1 - PCV) 10/07/1987 ZOSTER VACCINE (1 of 2) 10/07/1987 Respiratory Syncytial Virus (RSV) Vaccine Pt: or over 60 yrs (1 - 1-dose 75+ series) 2012 COVID-19 VACCINE ( - 2023-2 5 season) 2023 INFLUENZA VACCINE (#1) 2023 DEPRESSION SCREENING 02/27/2024 MEDICARE AWV CALENDAR YEAR 2024 HEPATITIS B VACCINE Aged Out No longe r eligible based on patient's age to complete this topic HIB VACCINE Aged Out No longer eligi ble based on patient's age to complete this topic HPV VACCINE Aged Out No longer eligi ble based on patient's age to complete this topic MENINGOCOCCAL (Group B) VACCINE Aged Out No longer eligible based on patient's age to complete this topic MENINGOCOCCAL VACCINE Aged Out No gaby casimiro eligible based on patient's age to complete this topic Care Teams Passenger Vessel Chef Relationship Specialty Start Date End Date Chrissy Andre MD [address] [place] [address] PCP - General Family Medicine 06/20/18 [place] [address] [address] Physical Medicine and Rehabilitation 06/20/18
--- OUTSIDE RECORDS SUMMARY | 2024-04-23 18:42 | XMS_ITS | Patient Health Summary ---
Author Organization [facility] Address [address] [place] [address] Care Team Providers Care Research Instructor Name Role Phone Chrissy Andre MD Primary Care Provider + Zain Sanders MD Unavailable [phone] Note from [facility],non-owned Affiliates and Associated Physician Practices is amultiple site organization consisting of ambulatory clinics and hospital sitesin [place], [place], [place] and [place]. This disclosure is being madepursuant to the Care Everywhere program and may not contain all information available regarding this patient. Last updated 17.[facility] Allergies * Adhesive Sensitivity(Skin Reactions) * Codeine(Unknown) * Iodine(Other) Medications * Be aware that medications may not be up to date on this document. Alwaysverify current medications with the patient. * FIBER PO * apixaban (ELIQUIS) 5 MG tablet Take 5 mg by mouth 2 times daily * calcium 600 MG tablet Take 1 tablet by mouth daily with food * metoprolol tartrate (LOPRESSOR) 50 MG tablet Take 50 mg by mouth 2 times daily * losartan - hydroCHLOROthiazide (HYZAAR) 50-12.5 MG tablet Take 1 tablet by mouth once daily Social History Tobacco Use Types Packs/Day Years [...] Mass Index 32.45 07/08/2018 8:56 AM CDT Care Teams Research Instructor Relationship Specialty Start Date End Date Chrissy Andre MD [address] [address] [address] [place] [address] PCP - General Family Medicine 06/20/18 [place] [address] [place] [address] Physical Medicine and Rehabilitation 06/20/18
--- OUTSIDE RECORDS SUMMARY | 2024-04-23 18:42 | XMS_ITS | Referral Summary ---
Author Organization [facility] Address [address] [place] [address] Care Team Providers Care Cleat Thrower Name Role Phone Chrissy Andre MD Primary Care Provider + aZin Sanders MD Unavailable [phone] Source Comments [facility],non-owned Affiliates and Associated Physician Practices is amultiple site organization consisting of ambulatory clinics and hospital sitesin [place], [place], [place] and [place]. This disclosure is being madepursuant to the Care Everywhere program and may not contain all information available regarding this patient. Last updated 17.[facility] [employer] Allergies Active Allergy Reactions Criticality Noted Date [...] 07/08/2018 8:56 AM CDT Plan of Treatment Not on file Care Teams Cleat Thrower Relationship Specialty Start Date End Date Chrissy Andre MD [address] [facility] [address] [place] [address] PCP - General Family Medicine 06/20/18 [place] [address] [place] [address] Physical Medicine and Rehabilitation 06/20/18
--- OUTSIDE RECORDS SUMMARY | 2024-04-23 18:42 | XMS_ITS | Referral Summary ---
Author Organization [facility] [address] Address [address] [place] [address] Care Team Providers Care City Magistrate Name Role Phone Chrissy Andre MD Primary [...] 12/15/2021 At risk for amiodarone toxicity with fdc u se 04/27/2021 Chronic fatigue 09/17/2019 Palpitations [...] /HCC) 12/02/2015 Overview (06/08/2016): Paroxysmal atrial fibrillation Social History Tobacco Use Types Packs/Day Years Used Date Smoking Tobacco: Former Cigarettes 0.1 15 Smokeless Tobacco: Never Tobacco Cessation:Counseling Given: Not Answered Alcohol Use Standard Drinks/Week Comments No 0 (1 standard drink = 0.6 oz pur e alcohol) Comments Unknown Sex and Gender Information Value Date Recorded Sex Assigned at Not on file Legal Sex Female 4:09 AM CAUSE ANALYST Gender Identity Not on file Sexual Orientation Not on file Last Filed Vital Signs Vital Sign Reading Time Taken Comments Blood Pressure 132/62 02/08/2023 3:06 PM CAUSE ANALYST Pulse 78 02/08/2023 3:06 PM CAUSE ANALYST Temperature 36.4 C (97.5 F) 01/01/2020 11:14 AM CAUSE ANALYST Respiratory Rate 14 09/20/2016 8:33 AM CDT Oxygen Saturation 94% 02/08/2023 3:06 PM CAUSE ANALYST Inhaled Oxygen Concentration - - Weight 84.4 kg (186 lb) 02/08/2023 3:06 PM CAUSE ANALYST Height 165.1 cm (5' 5 ) 02/08/2023 3:06 PM CAUSE ANALYST Body Mass Index 30.95 02/08/2023 3:06 PM CAUSE ANALYST Plan of Treatment Not on file Insurance [facility] Member Subscriber Plan / Payer (Ef fective 2016-Present) Name:GABBIE GOODMAN Relation to Subscriber:Self Name:Gabbie Goodman Payer ID:[id number] (NAIC) Type:MEDICARE RISK OTHER Address: [place] [id number] [facility] Member Subscriber Plan / Payer (Ef fective 2016-Present) Name:GABBIE GOODMAN Relation to Subscriber:Self Name:Gabbie Goodman Payer ID:[id number] (NAIC) Type:MEDICARE RISK OTHER Address: [place] [id number] Care Teams City Magistrate Relationship Specialty Start Date End Date Chrissy Andre MD [address] [facility] [address] [place] [address] [facility] - General 06/06/16
--- OUTSIDE RECORDS SUMMARY | 2024-04-23 18:42 | XMS_ITS | Continuity of Care Document ---
Author Organization [facility] Address [address] [place] [address] Phone Care Team Providers Care Director Of Vendor Management Name Role Phone Delmis Ronquillo Unavailable Unavailable Advance Directives Directive Yes / No Effective Date File Name No Information Encounters Encounter Description Practice Location Reason(s) For Visit Diagnoses Date Provider Providers Copied on Encounter [facility], [address], [place], [place], [id number], [place] tel:[phone] [facility] No Information [address] , [address], [place], [address], [place]. tel:[phone] Family History Family Member Type Diagnosis Age At Onset No Information Payers Payer name Insurance type Covered green party ID Authoriza tion(s) No Information Social [...]
[2024-04-23 18:43] LABS: Troponin I < 0.012 ng/mL (0.000-0.034)
[2024-04-23 21:30] LABS: Troponin I < 0.012 ng/mL (0.000-0.034)
--- OUTSIDE RECORDS SUMMARY | 2024-04-23 21:39 | XMS_ITS | Continuity of Care Document ---
Author Organization [facility] Address [address] [place] [address] Phone Care Team Providers Care Autocad Operator Name Role Phone Franklin PT,MPT,ATC, George Unavailable Unavai lable Procedures Procedure Date PT Evaluation Moderate Complexity Neuromuscular Re-Ed Advance Directives Directive Yes / No Effective Date File Name No Information Encounters Encounter Description Practice Location Reason(s) For Visit Diagnoses Date Provider Providers Copied on Encounter [facility], [facility] [address], [place], [place], [id number], tel:[phone] [place] Other abnormalities of gait and mobilityUnstead iness on feetDizziness and giddiness [address] [place], [place], . Referring Provider: Chrissy Andre , [address] [facility], [place], [address]. tel:[phone] Family History Family Member Type Diagnosis Age At Onset No Information Payers Payer name Insurance type Covered libertarian ID Authoriza tion(s) [employer] CI [id number] Social History Type Description Quantity Date Captured [...]
--- OUTSIDE RECORDS SUMMARY | 2024-04-23 21:39 | XMS_ITS | Clinical Summary ---
Author Organization [facility] [address] Address [address] [place] [address] Care Team Providers Care Flarer Name Role Phone Chrissy Andre MD Primary [...] 12/15/2021 At risk for amiodarone toxicity with senior care u se 04/27/2021 Chronic fatigue 09/17/2019 Palpitations [...] on file Legal Sex Female 4:09 AM SUPERVISOR CONTINGENTS Gender Identity Not on file Sexual Orientation Not on file Obstetrics History Last Filed Vital Signs Vital Sign Reading Time Taken Comments Blood Pressure 132/62 02/08/2023 3:06 PM SUPERVISOR CONTINGENTS Pulse 78 02/08/2023 3:06 PM SUPERVISOR CONTINGENTS Temperature 36.4 C (97.5 F) 01/01/2020 11:14 AM SUPERVISOR CONTINGENTS Respiratory Rate 14 09/20/2016 8:33 AM CDT Oxygen Saturation 94% 02/08/2023 3:06 PM SUPERVISOR CONTINGENTS Inhaled Oxygen Concentration - - Weight 84.4 kg (186 lb) 02/08/2023 3:06 PM SUPERVISOR CONTINGENTS Height 165.1 cm (5' 5 ) 02/08/2023 3:06 PM SUPERVISOR CONTINGENTS Body Mass Index 30.95 02/08/2023 3:06 PM SUPERVISOR CONTINGENTS Plan of Treatment Health Maintenance Due Date Last Done Comments Depression Screening 1935 Fall Risk Assessment 1935 Hepatitis B Screening 10/07/1955 Pneumococcal vaccine 65+ (1 of 1 - PCV) 10/07/1987 Zoster Vaccine (1 of 2) 10/07/1987 Well Visit 65+ 2002 Influenza Vaccine (#1) 2023 8, 12/07/2012, 11/29/2011 DTaP/Tdap/Td Vaccine (2 - Td or Tdap) 09/09/2024 Insurance [facility] Care Teams Flarer Relationship Specialty Start Date End Date Chrissy Andre MD [address] [facility] [address] [place] [address] PCP - General 06/06/16
--- OUTSIDE RECORDS SUMMARY | 2024-04-23 21:39 | XMS_ITS | Referral Summary ---
Author Organization [facility] [address] Address [address] [place] [address] Care Team Providers Care Nurse Tech Name Role Phone Chrissy Andre MD Primary [...] 12/15/2021 At risk for amiodarone toxicity with skilled nursing u se 04/27/2021 Chronic fatigue 09/17/2019 Palpitations [...] on file Legal Sex Female 4:09 AM ELECTRICAL PLUMBING SUPERVISOR Gender Identity Not on file Sexual Orientation Not on file Last Filed Vital Signs Vital Sign Reading Time Taken Comments Blood Pressure 132/62 02/08/2023 3:06 PM ELECTRICAL PLUMBING SUPERVISOR Pulse 78 02/08/2023 3:06 PM ELECTRICAL PLUMBING SUPERVISOR Temperature 36.4 C (97.5 F) 01/01/2020 11:14 AM ELECTRICAL PLUMBING SUPERVISOR Respiratory Rate 14 09/20/2016 8:33 AM CDT Oxygen Saturation 94% 02/08/2023 3:06 PM ELECTRICAL PLUMBING SUPERVISOR Inhaled Oxygen Concentration - - Weight 84.4 kg (186 lb) 02/08/2023 3:06 PM ELECTRICAL PLUMBING SUPERVISOR Height 165.1 cm (5' 5 ) 02/08/2023 3:06 PM ELECTRICAL PLUMBING SUPERVISOR Body Mass Index 30.95 02/08/2023 3:06 PM ELECTRICAL PLUMBING SUPERVISOR Plan of Treatment Not on file Insurance [facility] Member Subscriber Plan / Payer (Ef fective 2016-Present) Name:GABBIE GOODMAN Relation to Subscriber:Self Name:Gabbie Goodman Payer ID:[id number] (NAIC) Type:MEDICARE RISK OTHER Address: [place] [id number] [facility] Member Subscriber Plan / Payer (Ef fective 2016-Present) Name:GABBIE GOODMAN Relation to Subscriber:Self Name:Gabbie Goodman Payer ID:[id number] (NAIC) Type:MEDICARE RISK OTHER Address: [place] [id number] Care Teams Nurse Tech Relationship Specialty Start Date End Date Chrissy Andre MD [address] [facility] [address] [place] [address] [facility] - General 06/06/16
--- OUTSIDE RECORDS SUMMARY | 2024-04-23 21:39 | XMS_ITS | Patient Health Summary ---
Author Organization [facility] Address [address] [facility] [place] [address] Care Team Providers Care Pipe Layer Name Role Phone Chrissy Andre MD Primary Care Provider + Zain Sanders MD Unavailable [phone] Note from [facility],non-owned Affiliates and Associated Physician Practices is amultiple site organization consisting of ambulatory clinics and hospital sitesin [place], [place], [place] and [place]. This disclosure is being madepursuant to the Care Everywhere program and may not contain all information available regarding this patient. Last updated 17.[facility] Allergies * Adhesive Sensitivity(Skin Reactions) * Codeine(Unknown) [...] 32.45 07/08/2018 8:56 AM CDT Care Teams Pipe Layer Relationship Specialty Start Date End Date Chrissy Andre MD [address] [address] [address] [place] [address] PCP - General Family Medicine 06/20/18 [place] [address] [place] [address] Physical Medicine and Rehabilitation 06/20/18
--- OUTSIDE RECORDS SUMMARY | 2024-04-23 21:39 | XMS_ITS | Clinical Summary ---
Author Organization [facility] Address [address] [facility] [place] [address] Care Team Providers Care Public Relations Supervisor Name Role Phone Chrissy Andre MD Primary Care Provider + Zain Sanders MD Unavailable [phone] Source Comments [facility],non-owned Affiliates and Associated Physician Practices is amultiple site organization consisting of ambulatory clinics and hospital sitesin [place], [place], [place] and [place]. This disclosure is being madepursuant to the Care Everywhere program and may not contain all information available regarding this patient. Last updated 17.[facility] [employer] Allergies Active Allergy Reactions Criticality Noted Date [...] age to complete this topic Care Teams Public Relations Supervisor Relationship Specialty Start Date End Date Chrissy Andre MD [address] [place] [address] PCP - General Family Medicine 06/20/18 [place] [address] [address] Physical Medicine and Rehabilitation 06/20/18
--- OUTSIDE RECORDS SUMMARY | 2024-04-23 21:39 | XMS_ITS | Referral Summary ---
Author Organization [facility] Address [address] [facility] [place] [address] Care Team Providers Care Head Correction Officer Name Role Phone Chrissy Andre MD Primary Care Provider + Zain Sanders MD Unavailable [phone] Source Comments [facility],non-owned Affiliates and Associated Physician Practices is amultiple site organization consisting of ambulatory clinics and hospital sitesin [place], [place], [place] and [place]. This disclosure is being madepursuant to the Care Everywhere program and may not contain all information available regarding this patient. Last updated 17.[facility] [employer] Allergies Active Allergy Reactions Criticality Noted Date [...] of Treatment Not on file Care Teams Head Correction Officer Relationship Specialty Start Date End Date Chrissy Andre MD [address] [facility] [address] [place] [address] PCP - General Family Medicine 06/20/18 [place] [address] [place] [address] Physical Medicine and Rehabilitation 06/20/18
--- OUTSIDE RECORDS SUMMARY | 2024-04-23 21:39 | XMS_ITS | Continuity of Care Document ---
Author Organization Located within [facility] Address [address] [place] [address] Phone Care Team Providers Care Ingot Stripper Name Role Phone Delmis Ronquillo Unavailable Unavailable Advance Directives Directive Yes / No Effective Date File Name No Information Encounters Encounter Description Practice Location Reason(s) For Visit Diagnoses Date Provider Providers Copied on Encounter [facility], [address], [place], [place], [id number], [place] tel:[phone] [facility] No Information [address] , [address], [place], [address], [place]. tel:[phone] Family History Family Member Type Diagnosis Age [...]
== END 2024-04-23 22:26 | disposition home or self-care (01) ==
PROVIDERS: Physician Assistant; Emergency Provider Emergency Medicine; PCP Family Medicine
DX: R00.2 Palpitations (principal); I50.9 Heart failure, unspecified; I11.0 Hypertensive heart disease with heart failure; I48.0 Paroxysmal atrial fibrillation; Z87.891 Personal history of nicotine dependence
CPT/HCPCS: 36415; 71046; 80053; 83690; 83880; 84484; 85025; 85610; 85730; 93005; 99284

== ENCOUNTER 2024-06-20 07:42 | Outpatient (CLI) | payer OTHER, SELFPAY ==
--- NOTE | ~2024-06-20 | NM_ITS ---
EXAMINATION: NM marly stress w perfusion DATE: 06/20/2024 10:03 INDICATION: Dyspnea TECHNIQUE: Rest images were obtained following intravenous administration of 11.22 mCi Tc99m tetrofos min (Myoview). The patient was infused intravenously with Lexiscan (Regadenoson). Then, 34.5 mCi Tc99 m tetrofosmin (Myoview) was administered intravenously, and stress images were obtained. Data was rec onstructed into short axis and horizontal and vertical long axis SPECT images. Gated SPECT images wer e also obtained. COMPARISON: None. FINDINGS: There is no definite reversible or fixed perfusion abnormality to suggest ischemia or infar ction. There is normal left ventricular chamber size, wall motion and ejection fraction. Left ventr icular ejection fraction measures >70%. IMPRESSION: 1. Normal myocardial perfusion at rest and during stress. 2. Left ventricular ejection fraction measuring >70%. Reviewed, dictated and finalized at location A.
--- OUTSIDE RECORDS SUMMARY | 2024-06-20 07:46 | XMS_ITS | Clinical Summary ---
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 service u se 04/27/2021 Chronic fatigue 09/17/2019 Palpitations [...] on file Legal Sex Female 4:09 AM PULMONOLOGIST Gender Identity Not on file Sexual Orientation Not on file Obstetrics History Last Filed Vital Signs Vital Sign Reading Time Taken Comments Blood Pressure 132/62 02/08/2023 3:06 PM PULMONOLOGIST Pulse 78 02/08/2023 3:06 PM PULMONOLOGIST Temperature 36.4 C (97.5 F) 01/01/2020 11:14 AM PULMONOLOGIST Respiratory Rate 14 09/20/2016 8:33 AM CDT Oxygen Saturation 94% 02/08/2023 3:06 PM PULMONOLOGIST Inhaled Oxygen Concentration - - Weight 84.4 kg (186 lb) 02/08/2023 3:06 PM PULMONOLOGIST Height 165.1 cm (5' 5 ) 02/08/2023 3:06 PM PULMONOLOGIST Body Mass Index 30.95 02/08/2023 3:06 PM PULMONOLOGIST Plan of Treatment Health Maintenance Due Date Last Done Comments Depression Screening 1935 Fall Risk Assessment 1935 Hepatitis B Screening 10/07/1955 Pneumococcal vaccine 65+ (1 of 1 - PCV) 10/07/1987 Zoster Vaccine (1 of 2) 10/07/1987 Well Visit 65+ 2002 Influenza Vaccine (#1) 2023 8, 12/07/2012, 11/29/2011 DTaP/Tdap/Td Vaccine (2 - Td or Tdap) 09/09/2024 Insurance [facility] Care Teams Semiconductor Wafer Inspector Relationship Specialty Start Date End Date Chrissy Andre MD [address] [facility] [address] [place], [place] [id number] PCP - General 06/06/16
--- OUTSIDE RECORDS SUMMARY | 2024-06-20 07:46 | XMS_ITS | Continuity of Care Document ---
Author Organization [facility] Address [address] [place] [address] Phone Care Team Providers Care Trust Manager Name Role Phone Delmis Ronquillo Unavailable Unavailable Advance Directives Directive Yes / No Effective Date File Name No Information Encounters Encounter Description Practice Location Reason(s) For Visit Diagnoses Date Provider Providers Copied on Encounter [facility], [address], [place], [place], [id number], [place] tel:[phone] [facility] No Information [address] , [address], [place], [address], [place]. tel:[phone] Family History Family Member Type Diagnosis Age At Onset No Information Payers Payer name Insurance type Covered republican ID Authoriza tion(s) No Information Social History [...]
--- OUTSIDE RECORDS SUMMARY | 2024-06-20 07:46 | XMS_ITS | Referral Summary ---
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 04/27/2021 Chronic fatigue 09/17/2019 Palpitations [...] on file Legal Sex Female 4:09 AM MICROBIOLOGY DIRECTOR Gender Identity Not on file Sexual Orientation Not on file Last Filed Vital Signs Vital Sign Reading Time Taken Comments Blood Pressure 132/62 02/08/2023 3:06 PM MICROBIOLOGY DIRECTOR Pulse 78 02/08/2023 3:06 PM MICROBIOLOGY DIRECTOR Temperature 36.4 C (97.5 F) 01/01/2020 11:14 AM MICROBIOLOGY DIRECTOR Respiratory Rate 14 09/20/2016 8:33 AM CDT Oxygen Saturation 94% 02/08/2023 3:06 PM MICROBIOLOGY DIRECTOR Inhaled Oxygen Concentration - - Weight 84.4 kg (186 lb) 02/08/2023 3:06 PM MICROBIOLOGY DIRECTOR Height 165.1 cm (5' 5 ) 02/08/2023 3:06 PM MICROBIOLOGY DIRECTOR Body Mass Index 30.95 02/08/2023 3:06 PM MICROBIOLOGY DIRECTOR Plan of Treatment Not on file Insurance [facility] Care Teams Custodial Aide Relationship Specialty Start Date End Date Chrissy Andre MD [address] [address] PCP - General 06/06/16
--- OUTSIDE RECORDS SUMMARY | 2024-06-20 07:47 | XMS_ITS | Clinical Summary ---
Author Organization [facility] Address [address] [facility] [place] [address] Care Team Providers Care Systems Software Engineer Name Role Phone Chrissy Andre MD Primary Care Provider + Zain Sanders MD Unavailable [phone] Source Comments [facility],non-owned Affiliates and Associated Physician Practices is amultiple site organization consisting of ambulatory clinics and hospital sitesin [place], [place], [place] and [place]. This disclosure is being madepursuant to the Care Everywhere program and may not contain all information available regarding this patient. Last updated 17.[facility] [place] Allergies Active Allergy Reactions Criticality Noted Date Comments Adhesive Sensitivity Skin Reactions Codeine Unknown Iodine Other Medications * Be aware that medications may not be up to date on this document. Alwaysverify current medications with the patient. FIBER PO Active apixaban (ELIQUIS) 5 MG [...] Years Used Date Smoking Tobacco: Never Assessed Comments Unknown Sex and Gender Information Value Date Recorded Sex Assigned at Not on file Legal Sex Female 5:53 AM TELEVISION REPORTER Gender Identity Not on file Sexual Orientation [...] Last Done Comments BONE DENSITY TESTING 1935 MEDICARE AWV 12 MONTHS 1935 DTAP/TDAP/TD VACCINES (1 - Tdap) 1956 PNEUMOCOCCAL VACCINE 50+ (1 of 1 - PCV) 10/07/1987 ZOSTER VACCINE (1 of 2) 10/07/1987 Respiratory Syncytial Virus (RSV) Vaccine Pt: or over 60 yrs (1 - 1-dose 75+ series) 2012 COVID-19 VACCINE ( - 2023-2 5 season) 2023 DEPRESSION SCREENING 02/27/2024 INFLUENZA VACCINE (Season Ended) 2024 HEPATITIS B VACCINE Aged Out No longe r eligible based on patient's age to complete this topic HIB VACCINE Aged Out No longer eligi ble based on patient's age to complete this topic HPV VACCINE Aged Out No longer eligi ble based on patient's age to complete this topic MENINGOCOCCAL (Group B) VACC INE SHARED DECISION-MAKING Aged Out No longer eligibl e based on patient's age to complete this topic MENINGOCOCCAL GROUPS A/C/Y/W VACCINE Aged Out No longer eligible b ased on patient's age to complete this topic Insurance MEDICARE Care Teams Systems Software Engineer Relationship Specialty Start Date End Date Rostovtseva, Chrissy Y, MD [address] [place] [address] PCP - General Family Medicine 06/20/18 [place] [address] [facility] [address] [place] [address] Physical Medicine and Rehabilitation 06/20/18
--- NOTE | 2024-06-20 08:06 | EST_ITS ---
Patient Info Name: Pearl Goodman Age: 88 years : 1935 Gender: Female Ht: 65 in Wt: 185 lbs BSA: 1.99 m2 HR: 72 bpm BP: 147 / 85 mmHg Exam Date: 06/20/2024 8:55 AM Exam Location: Echo Lab Patient Status: Outpatient Admit Date: 06/20/2024 Staff Ordering Physician: Ricardo Barreto DO Attending Provider: Ricardo Barreto DO Exercise Technologist: Shellie Salas RDCS Exercise Physician: Ricardo Barreto DO Exam Type: CA stress marly w NM Study Info A regadenoson stress test was performed. Summary 1. 1. Negative lexiscan stress test for ischemic ST changes by ECG criteria. 2. 2. Baseline hypertension. 3. 3. Nuclear scan to follow and will be reported separately. Please correlate with it. 4. 4. Patient informed of the above results. Protocol: Lexiscan Stress ECG Details Stage: REST Duration (min): 1 min : 10 sec HR (bpm): 72 SBP (mmHg): 147 DBP (mmHg): 85 Stage: REST Duration (min): 13 min : 0 sec HR (bpm): 74 SBP (mmHg): 147 DBP (mmHg): 85 Stage: STAGE 1 Duration (min): 0 min : 59 sec HR (bpm): 89 SBP (mmHg): 163 DBP (mmHg): 94 Stage: RECOVERY Duration (min): 1 min : 0 sec HR (bpm): 97 SBP (mmHg): 163 DBP (mmHg): 94 Stage: RECOVERY Duration (min): 2 min : 0 sec HR (bpm): 94 SBP (mmHg): 163 DBP (mmHg): 94 Stage: RECOVERY Duration (min): 3 min : 0 sec HR (bpm): 90 SBP (mmHg): 145 DBP (mmHg): 74 Stage: RECOVERY Duration (min): 4 min : 0 sec HR (bpm): 90 SBP (mmHg): 145 DBP (mmHg): 74 Stage: RECOVERY Duration (min): 4 min : 3 sec HR (bpm): 90 SBP (mmHg): 145 DBP (mmHg): 74 Rest HR: 74 bpm Peak HR: 98 bpm Rest Sys BP: 147 mmHg Peak Sys BP: 163 mmHg Max Pred HR: 134 bpm % Max Pred HR: 73 % Target HR: 114 bpm Max RPP: 15,974 bpm*mmHg Termination Reason: Completed protocol Cardiac Symptoms: Shortness of breath Total Time: 1 min : 0 sec Rest Pool BP: 85 mmHg Peak Pool BP: 94 mmHg Total Dose: 0.4 mg Resting ECG Sinus rhythm. Stress ECG No ST changes. Arrhythmias None. Report Signatures
== END 2024-06-20 07:43 | disposition home or self-care (01) ==
PROVIDERS: PCP Family Medicine; Visit Provider Internal Medicine Cardiovascular Disease
DX: R06.00 Dyspnea, unspecified (principal)
CPT/HCPCS: 78452; 93017; A9502; J2785

== ENCOUNTER 2024-10-21 11:37 | Emergency (ER) | payer OTHER, SELFPAY ==
--- NOTE | ~2024-10-21 | XR_ITS ---
Clinical history:Distal injury first finger, smashed EXAM:X-ray finger first right minimum 2 views TECHNIQUE:3 images of the right first digit were obtained. Comparisons:None available FINDINGS: Bones appear osteopenic. Moderate degenerative change in the first carpometacarpal joint. Mild degenerative change in the first metacarpophalangeal joint. Soft tissue swelling about the first digit. No fracture identified. Questionable subtle dislocation of the first metacarpophalangeal joint. IMPRESSION: No fracture identified. Questionable subtle dislocation of the first metacarpophalangeal joint. Correlate clinically. Reviewed, dictated and finalized at location Q. IMPRESSION: No fracture identified. Questionable subtle dislocation of the first metacarpophalangeal joint. Correla te clinically.
[2024-10-21 11:47] VITALS: BP 151/65; PULSE 67; RESP 18; TEMP 36.4; O2SAT 99
--- NOTE | 2024-10-21 12:10 | ED.WOUNDLAC ---
HPI - Wound/Laceration General Chief Complaint: Wound/Laceration Stated Complaint: Right Hand Pain Time Seen by Provider: 10/21/24 12:10 Source: patient, RN notes reviewed and old records reviewed Mode of arrival: ambulatory Limitations: no limitations History of Present Illness HPI narrative: A 89-year-old female presents to the [facility] with pain to the distal right thumb with a laceration to the skin between the 1st and 2nd finger. Bleeding controlled. Patient knows she is not up-to-date with tetanus. Received her shingles and flu shot. Was advised to wait 4-6 weeks by pharmacist to get her tetanus shot when she received her shingles and flu shot. States that she received her flu and shingles shot 2-3 days ago. Related Data Home Medications ?Medication ?Instructions ?Recorded ?Confirmed ?Last Taken ?Type Adult One Daily Multivitamin 1 tablet PO DAILY 12/30/20 09/08/24 01/18/21 08:00 History Calcium 600 600 mg BYMOUTH BID 12/30/20 09/08/24 01/18/21 08:00 History psyllium husk 3.4 gram/5.4 gram 1 tbsp PO BID 06/21/23 09/08/24 Unknown History oral powder (Metamucil) ropinirole 0.5 mg tablet 0.5 mg PO QHS 09/08/24 09/08/24 Unknown History ropinirole 0.25 mg tablet mg 10/21/24 Unknown History Allergies Allergy/AdvReac Type Severity Reaction Status Date / Time levofloxacin Allergy Mild Nausea and Verified 10/21/24 12:03 Vomiting metronidazole Allergy Mild Nausea and Verified 10/21/24 12:03 Vomiting adhesive tape Allergy Unknown BLISTERS Verified 10/21/24 12:03 codeine Allergy Unknown Vomiting Verified 10/21/24 12:03 Iodinated Contrast Media Allergy Unknown Unknown Verified 10/21/24 12:03 Contrast Media Allergy Unknown unknown Uncoded 10/21/24 12:03 Review of Systems Review of Systems: All systems reviewed & are unremarkable except as noted in HPI and below Constitutional: Constitutional: Reports no additional constitutional complaints Musculoskeletal: Musculoskeletal: Reports as per HPI Integumentary/Breasts: Skin/Breast: Reports system reviewed and no additional complaints, except as docu PMFSH Past Medical History Medical History Acute tracheitis with laryngitis MDD (major depressive disorder), recurrent episode, moderate Memory changes Contusion of arm, left Contusion of head and neck region (12/31/22) Intention tremor Weakness generalized Atherosclerosis of aorta without gangrene Lumbar spondylosis Gastroenteritis and colitis, viral Low back pain Acute UTI Dysuria Sciatic nerve pain Shoulder pain, left Chest pain Acute heart failure with preserved ejection fraction (HFpEF) Chronic anticoagulation Heart failure with preserved ejection fraction Persistent atrial fibrillation Hyponatremia Bronchospasm LUIS (dyspnea on exertion) Abnormality of gait Atrial fib/flutter, transient Hyponatremia Stress at home Positive colorectal cancer screening using Cologuard test Allergic rhinitis, unspecified Atherosclerosis of aorta Benign paroxysmal vertigo, bilateral Bronchitis Closed displaced fracture of head of right radius with routine healing Closed nondisplaced fracture of lateral malleolus of right fibula 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 Diverticulosis large intestine w/o perforation or abscess w/bleeding Essential (primary) hypertension PAF (paroxysmal atrial fibrillation) Pneumonia and influenza Postmenopausal Spinal stenosis of lumbar region with neurogenic claudication Family History Family History Mother Patient's mother is Family history of malignant neoplasm Sibling Asthma Other Family history of arthritis Social History Social History Social History: Smoking status: Former smoker Second hand tobacco smoke exposure: No Smoking end date: 02/26/69 Alcohol intake: never Substance use: never Substance use type: does not use Do You Feel Safe in your Home?: Yes Lack of Transportation: No Lack of Food: Never True Current Housing: I Have Housing Concerned About Future Housing: No Difficulty Paying Gas/Electric Bills: No Difficulty Paying for Meds: No Currently Unemployed: YES Education: Bachelor's Degree Difficulty w/ Childcare or Family Care: No Living arrangements: with family Occupation/Education: retired Gender identity (if verbalized by the patient): Female Sexual Orientation (if Verbalized by the Patient): Straight or Heterosexual Spiritual care concerns: No Comments At the time of my signature, I reviewed and agree with the nursing past medical, surgical, social, and family history. There is no relevant family history pertinent to the patient complaint. Exam Const: General: cooperative, healthy appearing, comfortable, no acute distress, well developed, alert and well nourished Nutritional Appearance: well nourished Orientation/consciousness: patient oriented x3 Limitations: no limitations HENMT: Head: normal to inspection Eyes: General: appearance normal, both eyes and all related structures Alignment and Position: alignment normal Neck: Neck: normal visual inspection, full ROM, no lymphadenopathy and no meningeal signs Chest: Chest palpation & inspection: normal inspection of the chest Resp: Effort & Inspection: normal respiratory effort and able to speak in complete sentences Cardio: Rate: regular rate Skin: General skin exam: normal color and no rashes or lesions noted Other: 1.5 cm laceration to the skin between fingers wanting to right hand. Neuro: General: patient oriented x3, gait normal, moves all extremities and no meningeal signs Cognition (Neuro): normal cognition Speech: normal speech Gait exam (Neuro): Normal gait present Extrem: General: normal to inspection, full ROM, capillary refill normal and normal gait Right upper extremity: Extremity exam: right hand normal capillary refill, neuromotor exam normal, tenderness of the thumb at the distal phalanx, vascular exam radial pulse present and normal ROM of fingers Other: Tenderness and bruising noted to the distal aspect the right thumb Psych: Appearance: grossly normal and well kempt Mental Status: mental status grossly normal Speech and movement: Normal speech and movement present and Clear speech present Affect: normal affect Attitude: cooperative Course Course Level of Care: Express Care Visit Vital Signs Vital signs: Vital Signs Temperature 97.6 F 10/21/24 11:47 Pulse Rate 67 10/21/24 11:47 Respiratory Rate 18 10/21/24 11:47 Blood Pressure 151/65 H 10/21/24 11:47 Pulse Oximetry 99 10/21/24 11:47 Oxygen Delivery Room Air 10/21/24 11:47 Temperature 97.6 F 10/21/24 11:47 Pulse Rate 67 10/21/24 11:47 Respiratory Rate 18 10/21/24 11:47 Blood Pressure 151/65 H 10/21/24 11:47 Pulse Oximetry 99 10/21/24 11:47 Oxygen Delivery Room Air 10/21/24 11:47 Reviewed Procedures Laceration Laceration 1: Date: 10/21/24 Time: 12:55 Site: hand Side (If applicable): right Size (cm): 1.5 Description: linear Depth: simple, single layer Local Anesthetic: lidocaine 1% Amount of anesthesia used (mL): 2.5 Pre-repair: wound explored and irrigated (100) ====== Skin Level ====== Skin layer closed with: nylon Size (cm): 5-0 Number of sutures: 2 Technique: simple, interrupted ====== Subcutaneous Layer ====== ====== Muscle Layer ====== ====== Tendon Layer ====== MDM - Wound/Laceration MDM Narrative Medical decision making narrative: Patient sitting in exam room. Patient is nontoxic, vitals stable. Patient with laceration, 2 sutures placed. Patient is wanting to wait for tetanus. Patient's x-ray for fracture is negative. Patient is appropriate for outpatient treatment. Does have full range of motion of the finger, no concern for dislocation. Patient is appropriate for outpatient treatment with close follow-up Discharge instructions reviewed with patient, as well as provided in writing per nursing staff. The instructions also include specific and strict return/GO TO THE ER as well as f/u information. All questions have been answered, and the patient deny any further questions with discharge and discharge plan. Some parts of this dictation were generated by voice recognition software and may contain typographical and/or grammatical inaccuracies. Differential Diagnosis Differential diagnosis: Likely laceration, abrasion and other (Contusion, fracture) Imaging Data Radiologist's impression: Clinical history:Distal injury first finger, smashed EXAM:X-ray finger first right minimum 2 views TECHNIQUE:3 images of the right first digit were obtained. Comparisons:None available FINDINGS: Bones appear osteopenic. Moderate degenerative change in the first carpometacarpal joint. Mild degenerative change in the first metacarpophalangeal joint. Soft tissue swelling about the first digit. No fracture identified. Questionable subtle dislocation of the first metacarpophalangeal joint. IMPRESSION: No fracture identified. Questionable subtle dislocation of the first metacarpophalangeal joint. Correlate clinically. Critical Care Time Critical Care Time Critical Care Time: No Discharge Plan Discharge Clinical Impression: Hand laceration Qualifiers: Encounter type: initial encounter Foreign body presence: unspecified Laterality: right Qualified Code(s): S61.411A - Laceration without foreign body of right hand, initial encounter Patient Disposition: Home Condition: Stable Instructions: Care For Your Stitches (DC), Laceration (DC) Additional Instructions: When you are ready please go by the pharmacy and updated your tetanus. Follow-up with primary care provider in 7-10 days for suture removal Today blood pressure was 151/65. Please follow-up with primary care provider to have this rechecked Keep area clean and dry. Wash with warm soapy water twice daily. Patient Language: Colombian Prescriptions: No Action ropinirole 0.25 mg tablet furosemide 20 mg tablet See Rx Instructions .ROUTE .COMPLEX Qty: 90 1RF Dose Instruction: TAKE 2 TABLETS BY MOUTH EVERY MORNING Rx Instructions: TAKE 1 TABLET BY MOUTH EVERY MORNING Metamucil 3.4 gram/5.4 gram powder 1 tbsp PO BID Rx Instructions: mix into at least 8 oz of water or juice before administering amiodarone 100 mg tablet 100 mg PO DAILY Qty: 90 2RF ropinirole 0.5 mg tablet 0.5 mg PO QHS ipratropium bromide 42 mcg (0.06 %) spray,non-aerosol 2 spray intranasal QID 7 Days Qty: 15 0RF Rx Instructions: administer into each nostril Adult One Daily Multivitamin 1 tablet PO DAILY Calcium 600 600 mg BYMOUTH BID losartan 50 mg tablet See Rx Instructions .ROUTE .COMPLEX Qty: 90 2RF Dose Instruction: TAKE 1 TABLET BY MOUTH EVERY DAY Rx Instructions: TAKE 1 TABLET BY MOUTH EVERY DAY Eliquis 2.5 mg tablet See Rx Instructions .ROUTE .COMPLEX Qty: 60 5RF Dose Instruction: TAKE 1 TABLET BY MOUTH TWICE A DAY Rx Instructions: TAKE 1 TABLET BY MOUTH TWICE A DAY Follow-up/Referrals: Juancarlos Goode MD [Primary Care Provider, [facility]] - 2 Weeks Clinical Impression: Hand laceration Time of Disposition: 13:06
== END 2024-10-21 13:10 | disposition home or self-care (01) ==
PROVIDERS: Emergency Provider Nurse Practitioner; PCP Family Medicine
DX: S61.411A Laceration without foreign body of right hand, initial encounter (principal); W45.8XXA Other foreign body or object entering through skin, initial encounter; F33.9 Major depressive disorder, recurrent, unspecified; I48.19 Other persistent atrial fibrillation; Z79.01 Long term (current) use of anticoagulants; I10 Essential (primary) hypertension; Z87.891 Personal history of nicotine dependence
CPT/HCPCS: 12001; 73140; 99213; G0463

== ENCOUNTER 2024-10-24 15:53 | Emergency (ER) | payer OTHER, SELFPAY ==
--- OUTSIDE RECORDS SUMMARY | 2003-09-22 09:15 | XMS_ITS | Continuity of Care Document ---
Author Organization formerly [facility] Address [address] [place] [address] Phone Care Team Providers Care Technology Specialist Name Role Phone Delmis Ronquillo Unavailable Unavailable Advance Directives Directive Yes / No Effective Date File Name No Information Encounters Encounter Description Practice Location Reason(s) For Visit Diagnoses Date Provider Providers Copied on Encounter [facility], [address], [place], [place], [id number], [place] tel:[phone] [facility] No Information [address] , [address], [place], [address], [place]. tel:[phone] Family History Family Member Type Diagnosis Age At Onset No Information Payers Payer name Insurance type Covered alliance party ID Authoriza tion(s) No Information Social History Type Description Quantity Date Captured Comments Sex Female Smoking Status No Information Chief Complaint And Reason For Visit No Information Reason For Referral Reason For Referral No Information History Of Present Illness Encounter Date Complaint History Of Prese nt Illness No Information Functional Status Date Functional Assessmen t No Information Instructions Date Instruction Additional Infor mation No Information Assessments Type Assessment Date No Information Patient Care Teams Name Effective Dates (start - stop) Status Members No Information
--- OUTSIDE RECORDS SUMMARY | 2003-09-22 09:15 | XMS_ITS | Continuity of Care Document ---
Author Organization formerly [facility] Address [address] [place] [address] Phone Care Team Providers Care Photographer Apprentice Lithographic Name Role Phone Delmis Ronquillo Unavailable Unavailable Advance Directives Directive Yes / No Effective Date File Name No Information Encounters Encounter Description Practice Location Reason(s) For Visit Diagnoses Date Provider Providers Copied on Encounter [facility], [address], [place], [place], [id number], [place] tel:[phone] [facility] No Information [address] , [address], [place], [address], [place]. tel:[phone] Family History Family Member Type Diagnosis Age [...]
--- OUTSIDE RECORDS SUMMARY | 2017-01-09 11:00 | XMS_ITS | Continuity of Care Document ---
Author Organization [facility] Address [address] [place] [address] Rd [address] [place] [address] Phone Care Team Providers Care Prosthetics Technician Name Role Phone Rigoberto PT,MPT,ATC, George Unavailable Unavai lable Procedures Procedure Date PT Evaluation Moderate Complexity Neuromuscular Re-Ed Advance Directives Directive Yes / No Effective Date File Name No Information Encounters Encounter Description Practice Location Reason(s) For Visit Diagnoses Date Provider Providers Copied on Encounter [facility], [address] [place] [address] [address], [place], [place], [id number], tel:[phone] [place] Other abnormalities of gait and mobilityUnsteadi ness on feetDizziness and giddiness [address] [place], [place], . Referring Provider: Chrissy lo, [address] [facility] [address], [place], [address]. tel:[phone] Family History Family Member Type Diagnosis Age At Onset No Information Payers Payer name Insurance type Covered democrat ID Authoriza tishannon(s) [employer] CI [id number] Social History Type Description Quantity Date Captured [...]
--- NOTE | ~2024-10-24 | XR_ITS ---
EXAMINATION: XR chest 2V DATE: 10/24/2024 18:42 INDICATION: Chest pain and shortness of breath TECHNIQUE: PA and lateral views of the chest were obtained. COMPARISON: Chest radiograph dated 04/23/2024 FINDINGS: The lungs are clear with no focal airspace opacities, pulmonary edema, pleural effusion or pneumothorax. The cardiomediastinal silhouette is normal. Mild thoracic kyphosis with chronic mild anterior wedging of a few mid and lower thoracic vertebral bodies. Chronic distal right clavicle resection. IMPRESSION: 1. No acute cardiopulmonary disease. Reviewed, dictated and finalized at location A.
--- NOTE | 2024-10-24 15:55 | ECG_ITS ---
Test Date: 2024-10-24 16:00:00 Measurements Intervals [place] Rate: 78 P: 91 CA: 201 QRS: 3 QRSD: 105 T: 29 QT: 388 QTc: 443 Interpretive Statements SINUS RHYTHM BORDERLINE AV CONDUCTION DELAY EARLY PRECORDIAL R/S TRANSITION LOW QRS VOLTAGE IN PRECORDIAL LEADS LEFT VENTRICULAR HYPERTROPHY WITH ST-T CHANGE CONSIDER INFERIOR INFARCT, AGE INDETERMINATE BASELINE ARTIFACT- I, II, III, AVR, AVL, AVF, V1-V6 ABNORMAL ECG Compared to ECG 04/23/2024 21:29:20 NO SIGNIFICANT CHANGE Electronically Signed On 10-24-2024 16:03:15 CDT by Ricardo Barreto D.O.
--- OUTSIDE RECORDS SUMMARY | 2024-10-24 15:56 | XMS_ITS | Clinical Summary ---
Author Organization [facility] Address [address] [place] [address] Care Team Providers Care Mirror Polisher Name Role Phone Chrissy Andre MD Primary Care Provider + Zain Sanders MD Unavailable [phone] Source Comments [facility],non-owned Affiliates and Associated Physician Practices is amultiple site organization consisting of ambulatory clinics and hospital sitesin [place], [place], [place] and [place]. This disclosure is being madepursuant to the Care Everywhere program and may not contain all information available regarding this patient. 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 Gender Identity Not on file Sexual Orientation Not on file Last Filed Vital Signs Vital Sign Reading Time Taken Comments Blood Pressure 136/85 06/20/2018 10:37 AM CDT Pulse 63 06/20/2018 10:37 AM CDT Temperature - - Respiratory Rate - - Oxygen Saturation - - Inhaled Oxygen Concentration - - Weight 88.5 kg (195 lb) 07/08/2018 8:56 AM CDT Height 165.1 cm (5' 5) 07/08/2018 8:56 AM CDT Body Mass Index [...] season) 2023 DEPRESSION SCREENING 02/27/2024 INFLUENZA VACCINE (#1) 2024 HEPATITIS B VACCINE Aged Out No [...] complete this topic Insurance MEDICARE Care Teams Mirror Polisher Relationship Specialty Start Date End Date Chrissy Andre MD [address] [place] [address] PCP - General Family Medicine 06/20/18 [place] [address] [facility] [address] [place] [address] Physical Medicine and Rehabilitation 06/20/18
[2024-10-24 16:03] VITALS: BP 131/56; PULSE 76; RESP 16; TEMP 36.6; O2SAT 96
--- NOTE | 2024-10-24 17:56 | ED_ITS ---
HPI - Arrhythmia/Palpitations General Chief Complaint: Arrhythmia/Palpitations Stated Complaint: heart racing Time Seen by Provider: 10/24/24 17:56 Focused HPI: Patient is an 89 y/o female, with PMH of AFIB on Eliquis s/p ablation on Eliquis 2.5mg BID, CHF, COPD, who presents to the ED with c/o palpitations/chest pain. Patient reports she was sitting at home around 3pm today and began having racing heart palpitations, indigestion, became SOB, diaphoretic, nauseous. States her HR was between 70-90 at that time but felt faster. Prompted here for further evaluation. C/o heaviness in chest currently. Reports intermittent swelling of BLE. Reports SOB with exertion, but states this is fairly chronic for her. Denies recent cough/cold sx's, fevers. Sees Dr. Barreto GENERAL: Elderly-appearing, well-nourished, and in no acute distress. HEAD: Normocephalic, atraumatic. CHEST: No distress. Mild tachypnea. Occasional expiratory wheezing batool HEART: Regular rate and rhythm.?Peripheral pulses intact. No significant peripheral edema. NEURO: ?Alert and oriented x3. Patient screened in triage and initial orders placed.? ?Additional care and disposition to be based upon?diagnostic testing and treatment. Source: patient Mode of arrival: ambulatory Limitations: no limitations Related Data Home Medications ?Medication ?Instructions ?Recorded ?Confirmed ?Last Taken ?Type Adult One Daily Multivitamin 1 tablet PO DAILY 1 09/08/24 01/18/21 08:00 History Calcium 600 600 mg BYMOUTH BID 12/30/20 09/08/24 01/18/21 08:00 History psyllium husk 3.4 gram/5.4 gram 1 tbsp PO BID 06/21/23 09/08/24 Unknown History oral powder (Metamucil) ropinirole 0.5 mg tablet 0.5 mg PO QHS 09/08/2409/08 Unknown History ropinirole 0.25 mg tablet mg 10/21/24 Unknown History Allergies Allergy/AdvReac Type Severity Reaction Status Date / Time levofloxacin Allergy Mild Nausea and Verified 10/24/24 16:03 Vomiting metronidazole Allergy Mild Nausea and Verified 10/24/24 16:03 Vomiting adhesive tape Allergy Unknown BLISTERS Verified 10/24/24 16:03 codeine Allergy Unknown Vomiting Verified 10/24/24 16:03 Iodinated Contrast Media Allergy Unknown Unknown Verified 10/24/24 16:03 Contrast Media Allergy Unknown unknown Uncoded 10/24/24 16:03 [facility] Past Medical History Medical History Acute tracheitis with laryngitis MDD (major depressive disorder), recurrent episode, moderate Memory changes Contusion of arm, left Contusion of head and neck region (12/31/22) Intention tremor Weakness generalized Atherosclerosis of aorta without gangrene Lumbar spondylosis Gastroenteritis and colitis, viral Low back pain Acute UTI Dysuria Sciatic nerve pain Shoulder pain, left Chest pain Acute heart failure with preserved ejection fraction (HFpEF) Chronic anticoagulation Heart failure with preserved ejection fraction Persistent atrial fibrillation Hyponatremia Bronchospasm LUIS (dyspnea on exertion) Abnormality of gait Atrial fib/flutter, transient Hyponatremia Stress at home Positive colorectal cancer screening using Cologuard test Allergic rhinitis, unspecified Atherosclerosis of aorta Benign paroxysmal vertigo, bilateral Bronchitis Closed displaced fracture of head of right radius with routine healing Closed nondisplaced fracture of lateral malleolus of right fibula Current use of machine long goods 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 Diverticulosis large intestine w/o perforation or abscess w/bleeding Essential (primary) hypertension PAF (paroxysmal atrial fibrillation) Pneumonia and influenza Postmenopausal Spinal stenosis of lumbar region with neurogenic claudication Family History Family History Mother Patient's mother is Family history of malignant neoplasm Sibling Asthma Other Family history of arthritis Social History Social History Social History: Smoking status: Former smoker Second hand tobacco smoke exposure: No Smoking end date: 02/26/69 Alcohol intake: never Substance use: never Substance use type: does not use Do You Feel Safe in your Home?: Yes Lack of Transportation: No Lack of Food: Never True Current Housing: I Have Housing Concerned About Future Housing: No Difficulty Paying Gas/Electric Bills: No Difficulty Paying for Meds: No Currently Unemployed: YES Education: Bachelor's Degree Difficulty w/ Childcare or Family Care: No Living arrangements: with family Occupation/Education: retired Gender identity (if verbalized by the patient): Female Sexual Orientation (if Verbalized by the Patient): Straight or Heterosexual Spiritual care concerns: No Course Vital Signs Vital signs: Vital Signs Temperature 97.9 F 10/24/24 16:03 Pulse Rate 76 10/24/24 16:03 Respiratory Rate 16 10/24/24 16:03 Blood Pressure 131/56 L 10/24/24 16:03 Pulse Oximetry 96 10/24/24 16:03 Oxygen Delivery Room Air 10/24/24 16:03 Temperature 97.9 F 10/24/24 16:03 Pulse Rate 76 10/24/24 16:03 Respiratory Rate 16 10/24/24 16:03 Blood Pressure 131/56 L 10/24/24 16:03 Pulse Oximetry 96 10/24/24 16:03 Oxygen Delivery Room Air 10/24/24 16:03 MDM - Arrhythmia/Palpitations MDM Narrative Medical decision making narrative: MSE by NELA in triage. Lab Data 10/24/24 18:09 10/24/24 18:09 Labs: Lab Results 10/24/24 10/24/24 10/24/24 Range/Units 16:06 18:09 18:09 WBC 6.3 (4.5-10.0) K/mm3 RBC 4.29 (4.2-5.4) M/mm3 Hgb 12.7 (12.0-15.0) g/dL Hct 38.7 (37.0-47.0) % MCV 90.2 (80-100) fl MCH 29.6 (26-34) pg MCHC 32.8 (32-36) g/dl RDW 12.7 (11.5-14.5) % Plt Count 277 (150-375) k/mm3 MPV 10.3 (7.4-10.4) fl Immature Gran % (Auto) 0.2 (0-0.5) % Neut % (Auto) 62.9 (45.5-73.1) % Lymph % (Auto) 27.8 (18.3-44.2) % [place] % (Auto) 7.0 (2.6-8.5) % Eos % (Auto) 1.3 (0-4.4) % Baso % (Auto) 0.8 (0.2-1.2) % Lymph # (Auto) 1.74 (0.9-3.2) K/mm3 [place] # (Auto) 0.4 (0.1-0.6) K/mm3 Eos # (Auto) 0.1 (0-0.3) K/mm3 Baso # (Auto) 0.1 (0.0-0.1) K/mm3 Abs Immat Gran (auto) 0.01 (0.00-0.031) K/mm3 Absolute Neuts (auto) 3.9 (1.3-6.7) K/mm3 Absolute Nucleated RBC 0.000 (0.0-0.012) K/mm3 Nucleated RBC % 0.0 (0.0-0.2) % PT 13.7 (11.1-14.7) Seconds INR 1.0 APTT 33.4 (22.3-36.8) Seconds Sodium 133 L (137-145) mmol/L Potassium 4.5 (3.4-5.0) mmol/L Chloride 97 L (98-107) mmol/L Carbon Dioxide 27 (22-30) mmol/L Anion Gap 9 (4-12) mmol/L BUN 20 H (7-17) mg/dL Creatinine 0.70 (0.7-1.0) mg/dL Estim Creat Clear Calc Not Reportable Estimated GFR > 60 (59 - ) Glucose 107 (65-110) mg/dL POC Capillary Glucose 116 H (65-105) mg/dl Calcium 9.2 (8.4-10.2) mg/dL Magnesium 2.1 Cancelled (1.6-2.3) mg/dL Total Bilirubin 0.7 (0.2-1.3) mg/dL AST 30 (14-36) U/L ALT 17 (6-35) U/L Alkaline Phosphatase 67 (38-126) U/L Troponin I < 0.012 (0.000-0.034) ng/mL NT-Pro-B Natriuret Pep 207 H (19.9-100) pg/mL Total Protein 7.8 (6.3-8.2) g/dL Albumin 4.5 (3.5-5.1) g/dL Lipase 73 (23-300) U/L Discharge Plan Discharge Clinical Impression: Anxiety-like symptoms Patient Disposition: Home Condition: Improved Instructions: Heart Palpitations (ED), Anxiety (ED) Patient Language: Japanese Prescriptions: No Action ropinirole 0.25 mg tablet furosemide 20 mg tablet See Rx Instructions .ROUTE .COMPLEX Qty: 90 1RF Dose Instruction: TAKE 2 TABLETS BY MOUTH EVERY MORNING Rx Instructions: TAKE 1 TABLET BY MOUTH EVERY MORNING Metamucil 3.4 gram/5.4 gram powder 1 tbsp PO BID Rx Instructions: mix into at least 8 oz of water or juice before administering amiodarone 100 mg tablet 100 mg PO DAILY Qty: 90 2RF ropinirole 0.5 mg tablet 0.5 mg PO QHS ipratropium bromide 42 mcg (0.06 %) spray,non-aerosol 2 spray intranasal QID 7 Days Qty: 15 0RF Rx Instructions: administer into each nostril Adult One Daily Multivitamin 1 tablet PO DAILY Calcium 600 600 mg BYMOUTH BID losartan 50 mg tablet See Rx Instructions .ROUTE .COMPLEX Qty: 90 2RF Dose Instruction: TAKE 1 TABLET BY MOUTH EVERY DAY Rx Instructions: TAKE 1 TABLET BY MOUTH EVERY DAY Eliquis 2.5 mg tablet See Rx Instructions .ROUTE .COMPLEX Qty: 60 5RF Dose Instruction: TAKE 1 TABLET BY MOUTH TWICE A DAY Rx Instructions: TAKE 1 TABLET BY MOUTH TWICE A DAY Follow-up/Referrals: Juancarlos oGode MD [Primary Care Provider, Family Practice]
--- NOTE | 2024-10-24 18:01 | PC.NURSE ---
c/o chest heaviness during MSE, CP protocol initiated
--- NOTE | 2024-10-24 18:05 | ECG_ITS ---
Test Date: 2024-10-24 18:12:34 Measurements Intervals [place] Rate: 69 P: 95 HI: 215 QRS: 5 QRSD: 94 T: 20 QT: 395 QTc: 423 Interpretive Statements SINUS RHYTHM WITH FIRST DEGREE AV BLOCK LOW QRS VOLTAGE IN PRECORDIAL LEADS EARLY PRECORDIAL R/S TRANSITION CONSIDER INFERIOR INFARCT, AGE INDETERMINATE BASELINE ARTIFACT- I, II, III, AVR, AVL, AVF ABNORMAL ECG Compared to ECG 10/24/2024 16:00:00 NO SIGNIFICANT CHANGE Electronically Signed On 10-24-2024 19:37:51 CDT by Ricardo Barreto D.O.
[2024-10-24 18:20] LABS: Hematocrit 38.7 % (37.0-47.0); Hemoglobin 12.7 g/dL (12.0-15.0); Immature Granulocyte Percent A 0.2 % (0-0.5); Lymphocytes Absolute Auto 1.74 K/mm3 (0.9-3.2); Mean Corpuscular HGB Conc 32.8 g/dl (32-36); Mean Corpuscular Hemoglobin 29.6 pg (26-34); Mean Corpuscular Volume 90.2 fl (80-100); Nucleated Red Blood Cells Absolute Auto 0.000 K/mm3 (0.0-0.012); Nucleated Red Blood Cells Perc 0.0 % (0.0-0.2); Platelet Count Result 277 k/mm3 (150-375); Red Blood Count 4.29 M/mm3 (4.2-5.4); White Blood Count 6.3 K/mm3 (4.5-10.0)
[2024-10-24 18:32] LABS: Alanine Aminotransferase 17 U/L (6-35); Albumin Level 4.5 g/dL (3.5-5.1); Alkaline Phosphatase 67 U/L (38-126); Anion Gap 9 mmol/L (4-12); Aspartate Amino Transferase 30 U/L (14-36); Bilirubin,Total 0.7 mg/dL (0.2-1.3); Blood Urea Nitrogen 20 mg/dL (7-17); Calcium 9.2 mg/dL (8.4-10.2); Carbon Dioxide 27 mmol/L (22-30); Chloride 97 mmol/L (98-107); Estimated Glomerular Filt Rate > 60; Glucose 107 mg/dL (65-110); Lipase 73 U/L (23-300); Magnesium 2.1 mg/dL (1.6-2.3); Potassium 4.5 mmol/L (3.4-5.0); Sodium 133 mmol/L (137-145); Total Protein 7.8 g/dL (6.3-8.2)
[2024-10-24 18:35] LABS: INR 1.0; Prothrombin Time 13.7 Seconds (11.1-14.7)
[2024-10-24 18:36] LABS: Partial Thromboplastin Time 33.4 Seconds (22.3-36.8)
[2024-10-24 18:43] LABS: NT Pro B Type Natriuretic Pept 207 pg/mL (19.9-100); Troponin I < 0.012 ng/mL (0.000-0.034)
--- NOTE | 2024-10-24 19:37 | ED.ARRPALP ---
HPI - Arrhythmia/Palpitations General Chief Complaint: Arrhythmia/Palpitations Stated Complaint: heart racing Time Seen by Provider: 10/24/24 17:56 Source: patient and family Mode of arrival: ambulatory Limitations: no limitations History of Present Illness HPI narrative: 89 YEARS OLD WHITE FEMALE CAME TO THE ED BY PRIVATE CAR COMPLAINING OF WHILE SITTING SUDDEN ONSET OF HEART IS RACING, PATIENT THOUGHT PROBABLY SHE HAD AFIB WITH RVR, ASSOCIATED WITH NAUSEA, BELCHING, HOT FEELING RESOLVED ON ARRIVAL TO THE EMERGENCY ROOM. CURRENTLY PATIENT IS ASYMPTOMATIC. HISTORY OF AFIB, CURRENTLY ON ELIQUIS. PATIENT DENIES ANY CHEST PAIN, SHORTNESS OF BREATH, FEVER, CHILLS ABDOMINAL PAIN OR BACK PAIN Related Data Home Medications ?Medication ?Instructions ?Recorded ?Confirmed ?Last Taken ?Type Adult One Daily Multivitamin 1 tablet PO DAILY 12/30/20 09/08/24 01/18/21 08:00 History Calcium 600 600 mg BYMOUTH BID 12/30/20 09/08/24 01/18/21 08:00 History psyllium husk 3.4 gram/5.4 gram 1 tbsp PO BID 06/21/23 09/08/24 Unknown History oral powder (Metamucil) ropinirole 0.5 mg tablet 0.5 mg PO QHS 09/08/24 09/08/24 Unknown History ropinirole 0.25 mg tablet mg 10/21/24 Unknown History Allergies Allergy/AdvReac Type Severity Reaction Status Date / Time levofloxacin Allergy Mild Nausea and Verified 10/24/24 16:03 Vomiting metronidazole Allergy Mild Nausea and Verified 10/24/24 16:03 Vomiting adhesive tape Allergy Unknown BLISTERS Verified 10/24/24 16:03 codeine Allergy Unknown Vomiting Verified 10/24/24 16:03 Iodinated Contrast Media Allergy Unknown Unknown Verified 10/24/24 16:03 Contrast Media Allergy Unknown unknown Uncoded 10/24/24 16:03 Review of Systems Review of Systems: All systems reviewed & are unremarkable except as noted in HPI and below PMFSH Past Medical History Medical History Acute tracheitis with laryngitis MDD (major depressive disorder), recurrent episode, moderate Memory changes Contusion of arm, left Contusion of head and neck region (12/31/22) Intention tremor Weakness generalized Atherosclerosis of aorta without gangrene Lumbar spondylosis Gastroenteritis and colitis, viral Low back pain Acute UTI Dysuria Sciatic nerve pain Shoulder pain, left Chest pain Acute heart failure with preserved ejection fraction (HFpEF) Chronic anticoagulation Heart failure with preserved ejection fraction Persistent atrial fibrillation Hyponatremia Bronchospasm LUIS (dyspnea on exertion) Abnormality of gait Atrial fib/flutter, transient Hyponatremia Stress at home Positive colorectal cancer screening using Cologuard test Allergic rhinitis, unspecified Atherosclerosis of aorta Benign paroxysmal vertigo, bilateral Bronchitis Closed displaced fracture of head of right radius with routine healing Closed nondisplaced fracture of lateral malleolus of right fibula Current use of buttermaker continuous churn anticoagulation Diverticulosis large intestine w/o perforation or abscess w/bleeding Essential (primary) hypertension PAF (paroxysmal atrial fibrillation) Pneumonia and influenza Postmenopausal Spinal stenosis of lumbar region with neurogenic claudication Family History Family History Mother Patient's mother is Family history of malignant neoplasm Sibling Asthma Other Family history of arthritis Social History Social History Social History: Smoking status: Former smoker Second hand tobacco smoke exposure: No Smoking end date: 02/26/69 Alcohol intake: never Substance use: never Substance use type: does not use Do You Feel Safe in your Home?: Yes Lack of Transportation: No Lack of Food: Never True Current Housing: I Have Housing Concerned About Future Housing: No Difficulty Paying Gas/Electric Bills: No Difficulty Paying for Meds: No Currently Unemployed: YES Education: Bachelor's Degree Difficulty w/ Childcare or Family Care: No Living arrangements: with family Occupation/Education: retired Gender identity (if verbalized by the patient): Female Sexual Orientation (if Verbalized by the Patient): Straight or Heterosexual Spiritual care concerns: No Exam Narrative: GENERAL APPEARANCE: WELL-DEVELOPED, WELL-NOURISHED SKIN: NORMAL COLOR HEAD: NORMOCEPHALIC, NONTRAUMATIC EYES: CLEAR CONJUNCTIVA ENT: OROPHARYNX NORMAL, EARS NORMAL, NOSE NORMAL NECK: SUPPLE, NONTENDER CHEST AND RESPIRATORY: AIRWAY PATENT, NO RESPIRATORY DISTRESS, NO ACCESSORY MUSCLE USE HEART: REGULAR RATE/RHYTHM ABDOMEN: SOFT, NONTENDER, NO ORGANOMEGALY, QUIET BOWEL SOUNDS VASCULAR: NORMAL PERIPHERAL PULSES, NORMAL CAPILLARY REFILL. MUSCULOSKELETAL: NORMAL RANGE OF MOTION, NONTENDER BACK NEUROLOGIC: ALERT AND ORIENTED ?3, LOAN OFFICER ASSISTANT IS NORMAL TESTED, NO GROSS MOTOR DEFICIT Course Vital Signs Vital signs: Vital Signs Temperature 36.6 C 10/24/24 16:03 Pulse Rate 76 10/24/24 16:03 Respiratory Rate 16 10/24/24 16:03 Blood Pressure 131/56 L 10/24/24 16:03 Pulse Oximetry 96 10/24/24 16:03 Oxygen Delivery Room Air 10/24/24 16:03 Temperature 36.6 C 10/24/24 16:03 Pulse Rate 76 10/24/24 16:03 Respiratory Rate 16 10/24/24 16:03 Blood Pressure 131/56 L 10/24/24 16:03 Pulse Oximetry 96 10/24/24 16:03 Oxygen Delivery Room Air 10/24/24 16:03 MDM - Arrhythmia/Palpitations MDM Narrative Medical decision making narrative: PATIENT CAME TO THE ED WITH ANXIETY LIKE SYMPTOMS VITAL SIGNS SHOWING NO SIGNIFICANT ABNORMALITY PHYSICAL EXAMINATION SHOWING INSIGNIFICANT ABNORMALITY DIFFERENTIAL DIAGNOSIS INCLUDE ANXIETY LIKE SYMPTOMS, PALPITATION, ELECTROLYTE IMBALANCE, DEHYDRATION BLOOD WORKUP TODAY INCLUDES CBC, CMP, TROPONIN SHOWED SODIUM WAS 133, OTHERWISE WITHIN NORMAL LIMIT. EKG SHOWED NORMAL SINUS RHYTHM WITH FIRST-DEGREE HEART BLOCK CHEST X-RAY SHOWED NO ACUTE ABNORMALITY. DIAGNOSIS ANXIETY LIKE SYMPTOMS, PALPITATION THE PT WAS DISCHARGED TO HOME.THE PT,S CONDITION UPON DISCHARGE WAS FAIR,EDUCATION WAS PROVIDED TO THE PT IN REFERENCE TO THE FINAL IMPRESSION,DISCHARGE STUDY RESULTS,TREATMENT,PROGNOSIS AND NEED FOR FOLLOW UP . Differential Diagnosis Differential diagnosis: Likely other ( ABOVE) Medical Records Attestation: I reviewed the patient's medical records. Lab Data Attestation: I reviewed the patient's lab results. 10/24/24 18:09 10/24/24 18:09 Labs: Lab Results 10/24/24 10/24/24 10/24/24 Range/Units 16:06 18:09 18:09 WBC 6.3 (4.5-10.0) K/mm3 RBC 4.29 (4.2-5.4) M/mm3 Hgb 12.7 (12.0-15.0) g/dL Hct 38.7 (37.0-47.0) % MCV 90.2 (80-100) fl MCH 29.6 (26-34) pg MCHC 32.8 (32-36) g/dl RDW 12.7 (11.5-14.5) % Plt Count 277 (150-375) k/mm3 MPV 10.3 (7.4-10.4) fl Immature Gran % (Auto) 0.2 (0-0.5) % Neut % (Auto) 62.9 (45.5-73.1) % Lymph % (Auto) 27.8 (18.3-44.2) % [place] % (Auto) 7.0 (2.6-8.5) % Eos % (Auto) 1.3 (0-4.4) % Baso % (Auto) 0.8 (0.2-1.2) % Lymph # (Auto) 1.74 (0.9-3.2) K/mm3 [place] # (Auto) 0.4 (0.1-0.6) K/mm3 Eos # (Auto) 0.1 (0-0.3) K/mm3 Baso # (Auto) 0.1 (0.0-0.1) K/mm3 Abs Immat Gran (auto) 0.01 (0.00-0.031) K/mm3 Absolute Neuts (auto) 3.9 (1.3-6.7) K/mm3 Absolute Nucleated RBC 0.000 (0.0-0.012) K/mm3 Nucleated RBC % 0.0 (0.0-0.2) % PT 13.7 (11.1-14.7) Seconds INR 1.0 APTT 33.4 (22.3-36.8) Seconds Sodium 133 L (137-145) mmol/L Potassium 4.5 (3.4-5.0) mmol/L Chloride 97 L (98-107) mmol/L Carbon Dioxide 27 (22-30) mmol/L Anion Gap 9 (4-12) mmol/L BUN 20 H (7-17) mg/dL Creatinine 0.70 (0.7-1.0) mg/dL Estim Creat Clear Calc Not Reportable Estimated GFR > 60 (59 - ) Glucose 107 (65-110) mg/dL POC Capillary Glucose 116 H (65-105) mg/dl Calcium 9.2 (8.4-10.2) mg/dL Magnesium 2.1 Cancelled (1.6-2.3) mg/dL Total Bilirubin 0.7 (0.2-1.3) mg/dL AST 30 (14-36) U/L ALT 17 (6-35) U/L Alkaline Phosphatase 67 (38-126) U/L Troponin I < 0.012 (0.000-0.034) ng/mL NT-Pro-B Natriuret Pep 207 H (19.9-100) pg/mL Total Protein 7.8 (6.3-8.2) g/dL Albumin 4.5 (3.5-5.1) g/dL Lipase 73 (23-300) U/L Imaging Data Radiologist's impression: Impressions Chest X-Ray 10/24/24 19:10 IMPRESSION: 1. No acute cardiopulmonary disease. ECG Data EKG #1: Attestation: I personally reviewed and interpreted this ECG as follows: ECG completion date: 10/24/24 Interpretation: NORMAL SINUS RHYTHM WITH FIRST-DEGREE HEART BLOCK AT 69 BEATS PER MINUTE, LOW QRS VOLTAGE IN PRECORDIAL LEADS, EARLY PRECORDIAL R/S TRANSITION, CONSIDER INFERIOR INFARCT, AGE INDETERMINATE, ABNORMAL EKG, Discharge Plan Discharge Clinical Impression: Anxiety-like symptoms Patient Disposition: Home Condition: Improved Instructions: Heart Palpitations (ED), Anxiety (ED) Patient Language: Armenian Prescriptions: No Action ropinirole 0.25 mg tablet furosemide 20 mg tablet See Rx Instructions .ROUTE .COMPLEX Qty: 90 1RF Dose Instruction: TAKE 2 TABLETS BY MOUTH EVERY MORNING Rx Instructions: TAKE 1 TABLET BY MOUTH EVERY MORNING Metamucil 3.4 gram/5.4 gram powder 1 tbsp PO BID Rx Instructions: mix into at least 8 oz of water or juice before administering amiodarone 100 mg tablet 100 mg PO DAILY Qty: 90 2RF ropinirole 0.5 mg tablet 0.5 mg PO QHS ipratropium bromide 42 mcg (0.06 %) spray,non-aerosol 2 spray intranasal QID 7 Days Qty: 15 0RF Rx Instructions: administer into each nostril Adult One Daily Multivitamin 1 tablet PO DAILY Calcium 600 600 mg BYMOUTH BID losartan 50 mg tablet See Rx Instructions .ROUTE .COMPLEX Qty: 90 2RF Dose Instruction: TAKE 1 TABLET BY MOUTH EVERY DAY Rx Instructions: TAKE 1 TABLET BY MOUTH EVERY DAY Eliquis 2.5 mg tablet See Rx Instructions .ROUTE .COMPLEX Qty: 60 5RF Dose Instruction: TAKE 1 TABLET BY MOUTH TWICE A DAY Rx Instructions: TAKE 1 TABLET BY MOUTH TWICE A DAY Follow-up/Referrals: Juancarlos Goode MD [Primary Care Provider, Family Practice]
--- OUTSIDE RECORDS SUMMARY | 2024-10-24 20:05 | XMS_ITS | Clinical Summary ---
Author Organization [facility] Address [address] [facility] [place] [address] Care Team Providers Care Administrative Court Justice Name Role Phone Chrissy Andre MD Primary Care Provider + Zain Sanders MD Unavailable [phone] Source Comments [facility],non-owned Affiliates and Associated Physician Practices is amultiple site organization consisting of ambulatory clinics and hospital sitesin [place], [place], [place] and [place]. This disclosure is being madepursuant to the Care Everywhere program and may not contain all information available regarding this patient. 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 [facility] [address] [place] [address] Physical Medicine and Rehabilitation 06/20/18
--- OUTSIDE RECORDS SUMMARY | 2024-10-24 20:05 | XMS_ITS | Clinical Summary ---
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 Gender Identity Not on file Sexual Orientation Not on file Obstetrics History Last Filed Vital Signs Vital Sign Reading Time Taken Comments Blood Pressure 132/62 02/08/2023 3:06 PM LETTERPRESS PRINTING MACHINIST Pulse 78 02/08/2023 3:06 PM LETTERPRESS PRINTING MACHINIST Temperature 36.4 C (97.5 F) 01/01/2020 11:14 AM LETTERPRESS PRINTING MACHINIST Respiratory Rate 14 09/20/2016 8:33 AM CDT Oxygen Saturation 94% 02/08/2023 3:06 PM LETTERPRESS PRINTING MACHINIST Inhaled Oxygen Concentration - - Weight 84.4 kg (186 lb) 02/08/2023 3:06 PM LETTERPRESS PRINTING MACHINIST Height 165.1 cm (5' 5) 02/08/2023 3:06 PM LETTERPRESS PRINTING MACHINIST Body Mass Index 30.95 02/08/2023 3:06 PM LETTERPRESS PRINTING MACHINIST Plan of Treatment Health Maintenance Due Date Last Done Comments Depression Screening 1937 Fall Risk Assessment 1935 Osteoporosis Screening-Bone Density Scan 1935 Hepatitis B Screening 10/07/1955 Pneumococcal vaccine 65+ (1 of 1 - PCV) 10/07/1987 Zoster Vaccine (1 of 2) 10/07/1987 Well Visit 65+ 2002 DTaP/Tdap/Td Vaccine (2 - Td or Tdap) 09/09/2024 Influenza Vaccine (#1) 2024 8, 12/07/2012, 11/29/2011 Insurance [facility] Care Teams Senior Php Web Developer Relationship Specialty Start Date End Date Chrissy Andre MD [address] [facility] [address] [place] [address] PCP - General 06/06/16
== END 2024-10-24 21:04 | disposition home or self-care (01) ==
PROVIDERS: Physician Assistant; Emergency Provider Emergency Medicine; PCP Family Medicine
DX: F41.9 Anxiety disorder, unspecified (principal); I50.9 Heart failure, unspecified; I11.0 Hypertensive heart disease with heart failure; I48.91 Unspecified atrial fibrillation; I70.0 Atherosclerosis of aorta; J44.9 Chronic obstructive pulmonary disease, unspecified; Z87.01 Personal history of pneumonia (recurrent); Z87.440 Personal history of urinary (tract) infections; Z87.891 Personal history of nicotine dependence; Z79.899 Other long term (current) drug therapy; Z79.01 Long term (current) use of anticoagulants; I44.0 Atrioventricular block, first degree; R94.31 Abnormal electrocardiogram [ECG] [EKG]; I51.7 Cardiomegaly
CPT/HCPCS: 36415; 71046; 80053; 82948; 83690; 83735; 83880; 84484; 85025; 85610; 85730; 93005; 99284

== ENCOUNTER 2024-12-08 12:50 | Outpatient (CLI) | payer OTHER, SELFPAY ==
--- NOTE | 2024-12-08 13:08 | ECHO_ITS ---
Patient Info Name: Pearl Goodman Age: 89 years : 1935 Gender: Female Ht: 64 in Wt: 177 lbs BSA: 1.93 m2 HR: 74 bpm BP: 140 / 85 mmHg Technical Quality: Fair Exam Date: 12/08/2024 1:17 PM Patient Status: O Admit Date: 12/08/2024 Exam Type: CA echo doppler color flow Complete two-dimensional, color flow and Doppler transthoracic echocardiogram is performed. Vp Of Global Marketing: Nazanin Farooq Attending Provider: Ricardo Barreto DO Summary 1. Complete two-dimensional, color flow and Doppler transthoracic echocardiogram is performed. 2. Left ventricular chamber dimension is normal. 3. Left ventricular systolic function is normal, estimated at 65-70. 4. The left ventricular diastolic function is grade I diastolic dysfunction. 5. E/e' 14 is mildly elevated. 6. Left atrial chamber dimension is mildly enlarged. 7. There is moderate aortic valve sclerosis. 8. There is mild to moderate aortic valve stenosis with a peak velocity of 227 cm/s, mean gradient of 10 mmHg, and aortic valve area of 1.6 cm2. 9. The mitral valve has a moderately calcified annulus. 10. There is mild to moderate tricuspid valve regurgitation. 11. Mild pulmonary hypertension, estimated pulmonary arterial systolic pressure is 47 mmHg. Left Ventricle E/e' 14 is mildly elevated. Left ventricular chamber dimension is normal. Left ventricular systolic function is normal, estimated at 65-70. The left ventricular diastolic function is grade I diastolic dysfunction. Right Ventricle Right ventricular chamber dimension is normal. Right ventricular systolic function is normal and with normal TAPSE 2.1 cm. Left Atria Left atrial chamber dimension is mildly enlarged. Right Atria Right atrial chamber dimension is normal. Aortic Valve The aortic valve is trileaflet. There is moderate aortic valve sclerosis. There is mild to moderate aortic valve stenosis with a peak velocity of 227 cm/s, mean gradient of 10 mmHg, and aortic valve area of 1.6 cm2. There is no aortic valve regurgitation. Pulmonic Valve There is no pulmonic regurgitation. Mitral Valve The mitral valve has a moderately calcified annulus. There is no mitral valve stenosis. There is no mitral valve regurgitation. Tricuspid Valve There is mild to moderate tricuspid valve regurgitation. Mild pulmonary hypertension, estimated pulmonary arterial systolic pressure is 47 mmHg. Pericardium/Pleural There is no pericardial effusion. Inferior Vena Cava Normal inferior vena cava with >50% collapse upon inspiration consistent with normal right atrial pressure, 5 mmHg. Aorta The aortic root size at the sinus of Valsalva is normal. Left Ventricular Outflow Tract Name Value Normal LVOT 2D LVOT Diameter 1.8 cm LVOT Doppler LVOT Peak Velocity 128 cm/s LVOT Peak Gradient 5 mmHg LVOT Mean Gradient 3 mmHg LVOT VTI 32 cm LVOT VTI/AV VTI Ratio 0.6 LVOT Stroke Volume 82 ml LVOT CO 4.9 l/min LVOT CI 2.6 l/min/m2 Pulmonic Valve Name Value Normal RVOT Doppler RVOT Peak Velocity 85 cm/s RVOT Peak Gradient 3 mmHg PV Doppler PV Peak Velocity 113 cm/s PV Peak Gradient 5 mmHg Mitral Valve Name Value Normal MV Diastolic Function MV E Peak Velocity 106 cm/s MV A Peak Velocity 142 cm/s MV E/A 0.7 MV Decel Time (PW) 272 ms Tricuspid Valve Name Value Normal TV Regurgitation Doppler TR Peak Velocity 324 cm/s TR Peak Gradient 35 mmHg Estimated PAP/RSVP RA Pressure 5 mmHg <=5 PA Systolic Pressure 47 mmHg <36 RV Systolic Pressure 47 mmHg <36 TV Annular TDI TV Lateral Yesy s' Velocity 10.3 cm/s >=9.5 Aorta Name Value Normal Ascending Aorta Ao Root Diameter (MM) 3.2 cm Ao Root Diam Index (MM) 1.6 cm/m2 Aortic Valve Name Value Normal AV 2D/MM AV Area (Planimetry) 1.6 cm2 AV Doppler AV Peak Velocity 227 cm/s AV Peak Gradient 19 mmHg AV Mean Gradient 10 mmHg AV VTI 53 cm AV Area (Cont Eq VTI) 1.6 cm2 >=3.0 AV Area (Cont Eq Blue) 1.5 cm2 AV DI (Blue) 0.56 AV Regurgitation 2D LVOT Area 2.6 cm2 Ventricles Name Value Normal LV Dimensions 2D/MM IVS Diastolic Thickness (2D) 0.8 cm 0.6-1.0 IVS Diastole Thickness (MM) 0.8 cm 0.6-0.9 LVID Diastole (2D) 4.8 cm 3.8-5.2 LVID Diastole (MM) 6.3 cm 3.8-5.2 LVIW Diastolic Thickness (2D) 0.8 cm 0.6-0.9 LVIW Diastolic Thickness (MM) 1.0 cm 0.6-0.9 LVID Systole (2D) 2.6 cm 2.2-3.5 LVID Systole (MM) 3.3 cm 2.2-3.5 LVOT Diameter 1.8 cm LV Mass (2D Cubed) 135.19 g 67.00-162.00 LV Mass Index (2D Cubed) 70 g/m2 43-95 Relative Wall Thickness (2D) 0.35 <=0.42 LV Mass (MM Cubed) 249.79 g 67.00-162.00 LV Mass Index (MM Cubed) 129 g/m2 43-95 Relative Wall Thickness (MM) 0.33 LV Fractional Shortening/Ejection Fraction 2D/MM LV Fractional Shortening (2D) 47 % 27-45 LV Fractional Shortening (MM) 48 % 27-45 LV EF (MM Teichholz) 79 % LV EF (2D Teichholz) 78 % LV Diastolic Volume (4C MOD) 76 ml LV EF (4C MOD) 68 % LV Diastolic Volume (2C MOD) 76 ml LV EF (2C MOD) 74 % LV Diastolic Volume (BP MOD) 76 ml 46-106 LV Diastolic Volume Index (BP MOD) 39 ml/m2 29-61 LV Systolic Volume (BP MOD) 22 ml 14-42 LV Systolic Volume Index (BP MOD) 11 ml/m2 8-24 LV EF (BP MOD) 71 % 54-74 LV Diastolic Length (4C) 8.0 cm LV Systolic Length (4C) 6.6 cm LV Stroke Volume (4C MOD) 52 ml Atria Name Value Normal LA Dimensions LA Dimension (MM) 4.0 cm 2.7-3.8 LA Volume (4C A-L) 64 ml LA Volume (BP A-L) 66 ml RA Dimensions RA Systolic Major [place] Length (4C) 4.9 cm 2.2-2.8 RA Area (4C) 12.7 cm2 <=18.0 Report Signatures
--- OUTSIDE RECORDS SUMMARY | 2024-12-08 13:52 | XMS_ITS | Clinical Summary ---
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 Gender Identity Not on file Sexual Orientation Not on file Obstetrics History Last Filed Vital Signs Vital Sign Reading Time Taken Comments Blood Pressure 132/62 02/08/2023 3:06 PM DIRECTOR OF VENDOR MANAGEMENT Pulse 78 02/08/2023 3:06 PM DIRECTOR OF VENDOR MANAGEMENT Temperature 36.4 C (97.5 F) 01/01/2020 11:14 AM DIRECTOR OF VENDOR MANAGEMENT Respiratory Rate 14 09/20/2016 8:33 AM CDT Oxygen Saturation 94% 02/08/2023 3:06 PM DIRECTOR OF VENDOR MANAGEMENT Inhaled Oxygen Concentration - - Weight 84.4 kg (186 lb) 02/08/2023 3:06 PM DIRECTOR OF VENDOR MANAGEMENT Height 165.1 cm (5' 5) 02/08/2023 3:06 PM DIRECTOR OF VENDOR MANAGEMENT Body Mass Index 30.95 02/08/2023 3:06 PM DIRECTOR OF VENDOR MANAGEMENT Plan of Treatment Health Maintenance Due Date Last Done Comments Depression Screening 1935 Fall Risk Assessment 1935 Osteoporosis Screening-Bone Density Scan 1935 Hepatitis B Screening 10/07/1955 Pneumococcal vaccine 65+ (1 of 1 - PCV) 10/07/1987 Zoster Vaccine (1 of 2) 10/07/1987 Well Visit 65+ 2002 DTaP/Tdap/Td Vaccine (2 - Td or Tdap) 09/09/2024 Influenza Vaccine (#1) 2024 8, 12/07/2012, 11/29/2011 Insurance [facility] Care Teams Irrigation Installation Specialist Relationship Specialty Start Date End Date Chrissy Andre MD [address] [facility] [address] [place] [address] PCP - General 06/06/16
--- OUTSIDE RECORDS SUMMARY | 2024-12-08 13:52 | XMS_ITS | Clinical Summary ---
Author Organization [facility] Address [address] [place] [address] Care Team Providers Care Gas And Oil Servicer Name Role Phone Chrissy Andre MD Primary Care Provider + Zain Sanders MD Unavailable [phone] Source Comments [facility],non-owned Affiliates and Associated Physician Practices is amultiple site organization consisting of ambulatory clinics and hospital sitesin [place], [place], [place]. This disclosure is being madepursuant to the Care Everywhere program and may not contain all information available regarding this patient. Last updated 17.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
== END 2024-12-08 12:51 | disposition home or self-care (01) ==
PROVIDERS: PCP Family Medicine; Visit Provider Internal Medicine Cardiovascular Disease
DX: I35.0 Nonrheumatic aortic (valve) stenosis (principal); I08.3 Combined rheumatic disorders of mitral, aortic and tricuspid valves
CPT/HCPCS: 93306